=== PATIENT | male | born 1945 | race Caucasian/White ===

== ENCOUNTER 2016-11-23 17:39 | Emergency (ER) | payer MEDICARE ==
[2016-11-23 20:18] LABS: Basophils % (A) 0 %; CH 35.2; CHCM 34.7; Eosinophils # (A) 0.2 k/uL (0-0.7); Eosinophils % (A) 1 %; HDW 3.16; HGB 13.1 gm/dL (13.0-17.5); Luc # (Auto) 0.16; Luc % (Auto) 1; Lymphocytes # (A) 1.3 k/uL (1.0-4.8); Lymphocytes % (A) 9 %; MCH 35.3 pg (25.0-35.0); MCHC 34.6 g/dL (31.0-37.0); Macrocytosis Slight; Mean Platelet Volume 7.7; Monocytes # (A) 0.4 k/uL (0-1.0); Monocytes % (A) 3 %; Neutrophils % (A) 86 %; RBC 3.73 m/uL (4.30-5.90); RDW 14.9 % (11.5-15.5)
[2016-11-23 20:39] LABS: ALT 44 U/L (21-72); AST 57 U/L (17-59); Alkaline Phosphatase 133 U/L (38-126); Anion Gap 11 mmol/L; Blood Urea Nitrogen 26 mg/dL (9-20); Calcium 8.7 mg/dL (8.4-10.2); Carbon Dioxide 20 mmol/L (22-30); Chloride 110 mmol/L (98-107); Glucose 316 mg/dL (74-99); Non-African American GFR(MDRD) >60 (>60 ml/min/1.73 sqM); Potassium 3.8 mmol/L (3.5-5.1); Sodium 141 mmol/L (137-145); Total Bilirubin 3.7 mg/dL (0.2-1.3); Total Protein 7.5 g/dL (6.3-8.2)
[2016-11-23] MEDS ORDERED: ONDANSETRON 4 MG/2 ML VIAL IVP STA (21:06)
[2016-11-23] MEDS ORDERED: SODIUM CHLORIDE 0.9% 1,000 ML IV ONE (21:06)
[2016-11-23] MEDS ORDERED: RX INFO: IV CONTRAST WAS GIVEN 1 EACH MISC MISCELLANE PRN (21:06)
--- NOTE | 2016-11-23 22:33 | CT ---
EXAMINATION TYPE: CT ABDOMEN PELVIS W CON DATE OF EXAM: 11/23/2016 9:46 PM COMPARISON: June 16, 2013 HISTORY: Pt states of vomiting x2 days ago. CT DLP: 1752.3 mGycm Automated exposure control for dose reduction was used. TECHNIQUE: Helical acquisition of images was performed from the lung bases through the pelvis. CONTRAST: Performed without Oral Contrast and with IV Contrast, patient injected with 100 mL of Omnipaque 300. FINDINGS: LUNG BASES: No significant abnormality is appreciated. LIVER/GB: The liver is scalloped diffusely, and dominant varices are noted, but no focal liver lesion s can be seen. There is evidence of cholelithiasis occupying a small percentage of the gallbladder stephanie men. The biliary tree is otherwise unremarkable. PANCREAS: No significant abnormality is seen. SPLEEN: Evidence of mild splenomegaly, without focal findings. ADRENALS: No significant abnormality is seen. KIDNEYS: No significant abnormality is seen, although bilateral simple renal cysts are noted, greater in size on the left.. PERITONEAL CAVITY: There is a moderate-marked volume of peritoneal fluid throughout the abdomen and p baljinder, and within the lower omentum there is a reticulonodular pattern of increased density - a findi ng which can correlate with omental carcinomatosis. There is no pneumoperitoneum. ADENOPATHY: None visualized REPRODUCTIVE ORGANS: No significant abnormality is seen URINARY BLADDER: No significant abnormality is seen. PELVIC ADENOPATHY: None visualized. OSSEOUS STRUCTURES: No significant abnormality is seen. BOWEL: No significant abnormality is seen. IMPRESSION: 1. MODERATE-MARKED PERITONEAL FLUID THROUGHOUT THE ABDOMEN AND PELVIS. 2. SUSPICIOUS LOWER OMENTAL RETICULONODULAR PATTERN DISCUSSED ABOVE.
[2016-11-23 23:12] VITALS: PULSE 100; RESP 18
--- NOTE | 2016-11-24 00:05 | ED ---
General Adult HPI - General Chief complaint: Nausea/Vomiting/Diarrhea Stated complaint: POSS FOOD POISENING Source: patient Mode of arrival: wheelchair Limitations: no limitations - History of Present Illness Initial comments: 8-year-old male presented for evaluation of nausea vomiting since Sunday. He states him and his were out for dinner and since then he has had worsening nausea and vomiting. Symptoms are worsened with by mouth intake and he is only barely been able tolerate water and tea. There are no alleviating factors. He states there is been no associated abdominal pain, diarrhea, constipation, dysuria, chest pain, shortness of breath. He denies any sick contacts and further states that his has no similar symptoms. There are no previous abdominal surgeries. - Related Data Home Medications Medication Instructions Recorded Confirmed Carvedilol [Coreg] 12.5 mg PO HS 11/23/16 11/23/16 Cyanocobalamin (Vitamin B-12) 1,000 mcg PO DAILY 11/23/16 11/23/16 [Vitamin B-12] Ferrous Sulfate [Feosol] 325 mg PO DAILY 11/23/16 11/23/16 Saw [place] 500 mg PO DAILY 11/23/16 11/23/16 amLODIPine/VALSARTAN [Exforge 1 tab PO DAILY 11/23/16 11/23/16 10-320 mg Tablet] Previous Rx's Medication Instructions Recorded Ondansetron [Zofran ODT] 4 mg PO Q8HR #10 tab 11/24/16 Allergies Allergy/AdvReac Type Severity Reaction Status Date / Time No Known Allergies Allergy Unverified 11/23/16 19:22 Review of Systems ROS Statement: Those systems with pertinent positive or pertinent negative responses have been documented in the HPI. ROS Other: All systems not noted in ROS Statement are negative. Constitutional: Denies: fever, chills Eyes: Denies: eye pain, eye discharge, vision change ENT: Denies: ear pain, throat pain Respiratory: Denies: cough, dyspnea, wheezes, hemoptysis Cardiovascular: Denies: chest pain, palpitations Endocrine: Denies: fatigue, polydipsia, polyuria Gastrointestinal: Reports: nausea, vomiting. Denies: abdominal pain, diarrhea, constipation, hematemesis, melena, hematochezia Genitourinary: Denies: urgency, dysuria Musculoskeletal: Denies: back pain, arthralgia, myalgia Skin: Denies: rash, lesions, change in color Neurological: Denies: headache, weakness Psychiatric: Denies: anxiety, depression Hematological/Lymphatic: Denies: easy bleeding, easy bruising Past Medical History Past Medical History: GERD/Reflux, Hypertension History of Any Multi-Drug Resistant Organisms: None Reported Past Surgical History: No Surgical Hx Reported Past Psychological History: No Psychological Hx Reported Smoking Status: Never smoker Past Alcohol Use History: None Reported Past Drug Use History: None Reported General Exam Limitations: no limitations General appearance: alert, in no apparent distress Head exam: Present: atraumatic, normocephalic, normal inspection Eye exam: Present: normal appearance, PERRL, EOMI. Absent: scleral icterus, conjunctival injection, periorbital swelling ENT exam: Present: normal exam, mucous membranes moist Neck exam: Present: normal inspection. Absent: tenderness, meningismus, lymphadenopathy Respiratory exam: Present: normal lung sounds bilaterally. Absent: respiratory distress, wheezes, rales, rhonchi, stridor Cardiovascular Exam: Present: regular rate, normal rhythm, normal heart sounds. Absent: systolic murmur, diastolic murmur, rubs, gallop, clicks GI/Abdominal exam: Present: soft, normal bowel sounds. Absent: distended, tenderness, guarding, rebound, rigid Rectal exam: Present: deferred Extremities exam: Present: normal inspection, full ROM, normal capillary refill. Absent: tenderness, pedal edema, joint swelling, calf tenderness Back exam: Present: normal inspection Neurological exam: Present: alert, oriented X3, CN II-XII intact Psychiatric exam: Present: normal affect, normal mood Skin exam: Present: warm, dry, intact, normal color. Absent: rash Course Vital Signs 11/23/16 11/23/16 11/23/16 18:04 19:21 22:32 Temperature 100.1 F H 98.1 F 99.4 F Pulse Rate 91 93 89 Respiratory 20 16 14 Rate Blood Pressure 121/7 180/98 198/84 O2 Sat by Pulse 99 98 98 Oximetry 11/23/16 23:11 Temperature 98.9 F Pulse Rate 100 Respiratory 18 Rate Blood Pressure 176/79 O2 Sat by Pulse 97 Oximetry EKG Findings - EKG Comments: EKG Findings:: Sinus tachycardia with a ventricular rate of 11, JAVIER 148, QRS 88 , QT/QTC 356/461. Medical Decision Making - Medical Decision Making 71-year-old male presented for evaluation of nausea and vomiting since Sunday night. His concern was that this was either due to a contaminated food or due to a gastroenteritis. On physical examination he has a large abdomen that he says is no bigger than baseline. Abdomen is soft and nontender without peritoneal signs of guarding, rigidity, rebound. Lungs are clear to auscultation bilaterally and chest exam is nonacute.Labs are significant for leukocytosis, hyperglycemia, lactic acidosis of 3.5, and transaminitis.CT abdomen and pelvis shows moderate volume of peritoneal fluid throughout the abdomen and pelvis and within the lower omentum there is a reticulonodular pattern of increased density which may correlate with omental carcinomatosis. The patient was reevaluated and continued to have improvement in his symptoms with decreased nausea vomiting and he tolerated a by mouth challenge. He was informed of these results and all questions were answered to satisfaction. He was offered admission to this facility for further treatment and evaluation as stated he would rather be discharged home to follow up as an outpatient. He stated that he would follow-up with his primary care physician either tomorrow or Sunday but return to this facility if his symptoms should worsen or persist. He stated he would also get a Hemoccult referral from his primary care physician. - Lab Data Result diagrams: 11/23/16 20:09 11/23/16 20:09 Lab Results 11/23/16 11/23/16 11/23/16 Range/Units 20:09 20:09 20:09 WBC 15.0 H (3.8-10.6) k/uL RBC 3.73 L (4.30-5.90) m/uL Hgb 13.1 (13.0-17.5) gm/dL Hct 38.0 L (39.0-53.0) % MCV 102.0 H (80.0-100.0) fL MCH 35.3 H (25.0-35.0) pg MCHC 34.6 (31.0-37.0) g/dL RDW 14.9 (11.5-15.5) % Plt Count 123 L (150-450) k/uL Neutrophils % 86 % Lymphocytes % 9 % Monocytes % 3 % Eosinophils % 1 % Basophils % 0 % Neutrophils # 13.0 H (1.3-7.7) k/uL Lymphocytes # 1.3 (1.0-4.8) k/uL Monocytes # 0.4 (0-1.0) k/uL Eosinophils # 0.2 (0-0.7) k/uL Basophils # 0.0 (0-0.2) k/uL Macrocytosis Slight Sodium 141 (137-145) mmol/L Potassium 3.8 (3.5-5.1) mmol/L Chloride 110 H (98-107) mmol/L Carbon Dioxide 20 L (22-30) mmol/L Anion Gap 11 mmol/L BUN 26 H (9-20) mg/dL Creatinine 0.70 (0.66-1.25) mg/dL Est GFR (MDRD) Af Amer >60 (>60 ml/min/1.73 sqM) Est GFR (MDRD) Non-Af >60 (>60 ml/min/1.73 sqM) Glucose 316 H (74-99) mg/dL Plasma Lactic Acid Brad 3.5 H* (0.7-2.0) mmol/L Calcium 8.7 (8.4-10.2) mg/dL Total Bilirubin 3.7 H (0.2-1.3) mg/dL AST 57 (17-59) U/L ALT 44 (21-72) U/L Alkaline Phosphatase 133 H (38-126) U/L Troponin I (0.000-0.034) ng/mL Total Protein 7.5 (6.3-8.2) g/dL Albumin 3.3 L (3.5-5.0) g/dL Lipase 76 (23-300) U/L 11/23/16 11/23/16 Range/Units 23:02 23:02 WBC (3.8-10.6) k/uL RBC (4.30-5.90) m/uL Hgb (13.0-17.5) gm/dL Hct (39.0-53.0) % MCV (80.0-100.0) fL MCH (25.0-35.0) pg MCHC (31.0-37.0) g/dL RDW (11.5-15.5) % Plt Count (150-450) k/uL Neutrophils % % Lymphocytes % % Monocytes % % Eosinophils % % Basophils % % Neutrophils # (1.3-7.7) k/uL Lymphocytes # (1.0-4.8) k/uL Monocytes # (0-1.0) k/uL Eosinophils # (0-0.7) k/uL Basophils # (0-0.2) k/uL Macrocytosis Sodium (137-145) mmol/L Potassium (3.5-5.1) mmol/L Chloride (98-107) mmol/L Carbon Dioxide (22-30) mmol/L Anion Gap mmol/L BUN (9-20) mg/dL Creatinine (0.66-1.25) mg/dL Est GFR (MDRD) Af Amer (>60 ml/min/1.73 sqM) Est GFR (MDRD) Non-Af (>60 ml/min/1.73 sqM) Glucose (74-99) mg/dL Plasma Lactic Acid Brad 2.2 H* (0.7-2.0) mmol/L Calcium (8.4-10.2) mg/dL Total Bilirubin (0.2-1.3) mg/dL AST (17-59) U/L ALT (21-72) U/L Alkaline Phosphatase (38-126) U/L Troponin I <0.012 (0.000-0.034) ng/mL Total Protein (6.3-8.2) g/dL Albumin (3.5-5.0) g/dL Lipase (23-300) U/L Disposition Clinical Impression: Nausea and vomiting, Omental mass, Leukocytosis Disposition: HOME SELF-CARE Condition: Stable Instructions: Acute Nausea and Vomiting (ED) Additional Instructions: Please use medication as discussed. Please follow up with family doctor if symptoms have not improved over the next two days. Please return to the emergency room if your symptoms increase or worsen or for any other concerns. Prescriptions: Ondansetron [Zofran ODT] 4 mg PO Q8HR #10 tab Referrals: Chrissie Christianson MD [Primary Care Provider] - 1-2 days Time of Disposition: 00:05
[2016-11-24 00:22] VITALS: BP 155/67; TEMP 100.5
[2016-11-24] MEDS ORDERED: ACETAMINOPHEN TAB 325 MG TAB PO STA (00:24)
== END 2016-11-24 00:29 | disposition home or self-care (01) ==
LOC: EC 17:39
DX: R11.2 Nausea with vomiting, unspecified (principal); K63.89 Other specified diseases of intestine; D72.829 Elevated white blood cell count, unspecified; I10 Essential (primary) hypertension; Z79.899 Other long term (current) drug therapy
CPT/HCPCS: 99284; 96374; 96361; 36415; 93005; 80053; 83605; 83690; 84484; 85025; 74177; J2405; Q9967

== ENCOUNTER → 2016-12-21 | Outpatient (CLI) | payer MEDICARE ==
--- NOTE | 2016-12-21 08:12 | US ---
EXAMINATION TYPE: US abdomen complete DATE OF EXAM: 12/21/2016 COMPARISON: CT CLINICAL HISTORY: R10.84 Generalized abdominal pain,R94.5 High LFT. Distended abd, pt had food poiso aimee last month came to ER and was dehydrated abd wall thick and edematous 2.5 cm, ascites all 4 quadrants ruq:1.6cm luq:5.7 cm rlq:6.4 cm llq:7.5 cm EXAM MEASUREMENTS: Liver Length: 16.8 cm Gallbladder Wall: 0.6 cm CBD: 0.6 cm Spleen: 16.3 cm Right Kidney: 10.8 x 5.3 x 5.0 cm Left Kidney: 12.7 x 5.2 x 4.9 cm Pancreas: Obscured by bowel gas Liver: ascites, heterogenous, Gallbladder: thick walled Evidence for sonographic Jauregui's sign: No CBD: wnl Spleen: enlarged Right Kidney: No hydronephrosis or masses seen Left Kidney: cysts 6.4 x 8.2 x 4.6 cm, 2.1 x 1.6 x 1.7 cm Upper IVC: Obscured by overlying bowel gas Abd Aorta: Obscured by overlying bowel gas IMPRESSION: 1. Liver is diffusely heterogeneous which can be seen with fatty infiltration, hepatitis or diffuse h epatocellular disease. 2. Pancreas is limited 3. Small amount of ascites 4. Splenomegaly. 5. Simple appearing left renal cysts. 6. gallbladder wall is thickened measuring 6 mm. This can occasionally be seen with hepatocellular di sease and ascites. No gallstones. Cholecystitis not excluded. Correlate clinically.
== END | disposition home or self-care (01) ==
LOC: RADUSWWP 07:00
PROVIDERS: ATTEND Internal Medicine
DX: R18.8 Other ascites (principal); N28.1 Cyst of kidney, acquired; R93.2 Abnormal findings on diagnostic imaging of liver and biliary tract
CPT/HCPCS: 76700

== ENCOUNTER 2017-01-04 22:44 | Inpatient (IN) | payer MEDICARE ==
[2017-01-04] MEDS ORDERED: ONDANSETRON 4 MG/2 ML VIAL IVP STA (23:15)
[2017-01-04] MEDS ORDERED: SODIUM CHLORIDE 0.9% 1,000 ML IV STA ×2 (23:15)
[2017-01-04] MEDS ORDERED: PANTOPRAZOLE 40 MG/10 ML VIAL IVP STA (23:15)
[2017-01-04 23:29] LABS: Basophils % (A) 1 %; Eosinophils # (A) 0.1 k/uL (0-0.7); Eosinophils % (A) 2 %; HCT 31.3 % (39.0-53.0); HGB 10.3 gm/dL (13.0-17.5); Luc # (Auto) 0.15; Luc % (Auto) 3; Lymphocytes # (A) 1.4 k/uL (1.0-4.8); Lymphocytes % (A) 23 %; MCH 33.2 pg (25.0-35.0); MCHC 32.9 g/dL (31.0-37.0); MCV 100.7 fL (80.0-100.0); Macrocytosis Slight; Mean Platelet Volume 7.5; Monocytes # (A) 0.4 k/uL (0-1.0); Monocytes % (A) 6 %; Neutrophils % (A) 66 %; Poikilocytosis Slight; RBC 3.11 m/uL (4.30-5.90); RDW 14.7 % (11.5-15.5); WBC 6.1 k/uL (3.8-10.6); WBC (Perox) 6.07
[2017-01-04 23:40] LABS: INR 1.3 (<1.1); Partial Thromboplastin Time 24.5 sec (22.0-30.0); Prothrombin Time 12.5 sec (9.0-12.0)
[2017-01-04 23:45] LABS: ALT 31 U/L (21-72); AST 37 U/L (17-59); Alkaline Phosphatase 99 U/L (38-126); Anion Gap 7 mmol/L; Blood Urea Nitrogen 20 mg/dL (9-20); Calcium 8.4 mg/dL (8.4-10.2); Carbon Dioxide 24 mmol/L (22-30); Chloride 109 mmol/L (98-107); Glucose 116 mg/dL (74-99); Magnesium 1.9 mg/dL (1.6-2.3); Non-African American GFR(MDRD) >60 (>60 ml/min/1.73 sqM); Potassium 4.7 mmol/L (3.5-5.1); Sodium 140 mmol/L (137-145); Total Bilirubin 1.4 mg/dL (0.2-1.3); Total Protein 6.6 g/dL (6.3-8.2)
--- NOTE | 2017-01-04 23:55 | ED ---
General Adult HPI - General Chief complaint: GI Bleed Stated complaint: Vomiting Blood Time Seen by Provider: 01/04/17 23:14 Source: patient, RN notes reviewed, old records reviewed Mode of arrival: ambulatory Limitations: no limitations - History of Present Illness Initial comments: This is a 71-year-old male here for evaluation of vomiting blood. Patient has history of upper GI bleed, not on blood thinners. Patient states he vomited 2- 3 [address] blood walk home. Patient denies feeling lightheaded dizzy or weak. No blood in his stool. Patient has prior GI evaluation including upper and lower endoscopies which showed diverticulosis, likely ulcer. Patient denies any pain - Related Data Home Medications Medication Instructions Recorded Confirmed Carvedilol [Coreg] 12.5 mg PO HS 11/23/16 01/04/17 Cyanocobalamin (Vitamin B-12) 1,000 mcg PO DAILY 11/23/16 01/04/17 [Vitamin B-12] Ferrous Sulfate [Feosol] 325 mg PO Q48H 11/23/16 01/04/17 Saw [place] 500 mg PO DAILY 11/23/16 01/04/17 Amlodipine Besylate/Valsartan 1 tab PO DAILY 01/04/17 01/04/17 [Exforge 5-320 mg Tablet] Cephalexin [Keflex] 500 mg PO TID 01/04/17 01/04/17 Furosemide [Lasix] 20 mg PO DAILY 01/04/17 01/04/17 Glimepiride [Amaryl] 1 mg PO BID 01/04/17 01/04/17 Promethazine HCl/Codeine 5 ml PO Q6HR PRN 01/04/17 01/04/17 [Prometh-Codein 6.25-10 mg/5 ml] Allergies Allergy/AdvReac Type Severity Reaction Status Date / Time No Known Allergies Allergy Verified 01/04/17 23:38 Review of Systems ROS Statement: Those systems with pertinent positive or pertinent negative responses have been documented in the HPI. ROS Other: All systems not noted in ROS Statement are negative. Past Medical History Past Medical History: GERD/Reflux, Hypertension History of Any Multi-Drug Resistant Organisms: None Reported Past Surgical History: No Surgical Hx Reported Past Psychological History: No Psychological Hx Reported Smoking Status: Never smoker Past Alcohol Use History: None Reported Past Drug Use History: None Reported General Exam Limitations: no limitations General appearance: alert, in no apparent distress Head exam: Present: atraumatic, normocephalic, normal inspection Eye exam: Present: normal appearance, PERRL, EOMI. Absent: scleral icterus, conjunctival injection, periorbital swelling ENT exam: Present: normal exam, mucous membranes moist Neck exam: Present: normal inspection. Absent: tenderness, meningismus, lymphadenopathy Respiratory exam: Present: normal lung sounds bilaterally. Absent: respiratory distress, wheezes, rales, rhonchi, stridor Cardiovascular Exam: Present: regular rate, normal rhythm, normal heart sounds. Absent: systolic murmur, diastolic murmur, rubs, gallop, clicks GI/Abdominal exam: Present: soft, normal bowel sounds. Absent: distended, tenderness, guarding, rebound, rigid Extremities exam: Present: normal inspection, full ROM, normal capillary refill. Absent: tenderness, pedal edema, joint swelling, calf tenderness Back exam: Present: normal inspection Neurological exam: Present: alert, oriented X3, CN II-XII intact Psychiatric exam: Present: normal affect, normal mood Skin exam: Present: warm, dry, intact, normal color. Absent: rash Course Vital Signs 01/04/17 22:55 Temperature 97.8 F Pulse Rate 102 H Respiratory 20 Rate Blood Pressure 176/78 O2 Sat by Pulse 96 Oximetry - Reevaluation(s) Reevaluation #1: 01/05/17 00:01 Patient is without lightheaded or dizziness, no active vomiting Medical Decision Making - Medical Decision Making 71 male to the ER with history of GI bleed likely from also, not on blood thinners coming in with vomiting blood. Patient will be admitted for monitoring of hemoglobin, moderate nuclear and Arias status, GI evaluation. - Lab Data Result diagrams: 01/04/17 23:20 01/04/17 23:20 Lab Results 01/04/17 01/04/17 01/04/17 Range/Units 23:20 23:20 23:20 WBC 6.1 (3.8-10.6) k/uL RBC 3.11 L (4.30-5.90) m/uL Hgb 10.3 L (13.0-17.5) gm/dL Hct 31.3 L (39.0-53.0) % MCV 100.7 H (80.0-100.0) fL MCH 33.2 (25.0-35.0) pg MCHC 32.9 (31.0-37.0) g/dL RDW 14.7 (11.5-15.5) % Plt Count 206 (150-450) k/uL Neutrophils % 66 % Lymphocytes % 23 % Monocytes % 6 % Eosinophils % 2 % Basophils % 1 % Neutrophils # 4.0 (1.3-7.7) k/uL Lymphocytes # 1.4 (1.0-4.8) k/uL Monocytes # 0.4 (0-1.0) k/uL Eosinophils # 0.1 (0-0.7) k/uL Basophils # 0.0 (0-0.2) k/uL Poikilocytosis Slight Macrocytosis Slight PT (9.0-12.0) sec INR (<1.1) APTT (22.0-30.0) sec Sodium 140 (137-145) mmol/L Potassium 4.7 (3.5-5.1) mmol/L Chloride 109 H (98-107) mmol/L Carbon Dioxide 24 (22-30) mmol/L Anion Gap 7 mmol/L BUN 20 (9-20) mg/dL Creatinine 0.70 (0.66-1.25) mg/dL Est GFR (MDRD) Af Amer >60 (>60 ml/min/1.73 sqM) Est GFR (MDRD) Non-Af >60 (>60 ml/min/1.73 sqM) Glucose 116 H (74-99) mg/dL Calcium 8.4 (8.4-10.2) mg/dL Magnesium 1.9 (1.6-2.3) mg/dL Total Bilirubin 1.4 H (0.2-1.3) mg/dL AST 37 (17-59) U/L ALT 31 (21-72) U/L Alkaline Phosphatase 99 (38-126) U/L Total Creatine Kinase 42 L (55-170) U/L Total Protein 6.6 (6.3-8.2) g/dL Albumin 2.6 L (3.5-5.0) g/dL Lipase 83 (23-300) U/L 01/04/17 Range/Units 23:20 WBC (3.8-10.6) k/uL RBC (4.30-5.90) m/uL Hgb (13.0-17.5) gm/dL Hct (39.0-53.0) % MCV (80.0-100.0) fL MCH (25.0-35.0) pg MCHC (31.0-37.0) g/dL RDW (11.5-15.5) % Plt Count (150-450) k/uL Neutrophils % % Lymphocytes % % Monocytes % % Eosinophils % % Basophils % % Neutrophils # (1.3-7.7) k/uL Lymphocytes # (1.0-4.8) k/uL Monocytes # (0-1.0) k/uL Eosinophils # (0-0.7) k/uL Basophils # (0-0.2) k/uL Poikilocytosis Macrocytosis PT 12.5 H (9.0-12.0) sec INR 1.3 (<1.1) APTT 24.5 (22.0-30.0) sec Sodium (137-145) mmol/L Potassium (3.5-5.1) mmol/L Chloride (98-107) mmol/L Carbon Dioxide (22-30) mmol/L Anion Gap mmol/L BUN (9-20) mg/dL Creatinine (0.66-1.25) mg/dL Est GFR (MDRD) Af Amer (>60 ml/min/1.73 sqM) Est GFR (MDRD) Non-Af (>60 ml/min/1.73 sqM) Glucose (74-99) mg/dL Calcium (8.4-10.2) mg/dL Magnesium (1.6-2.3) mg/dL Total Bilirubin (0.2-1.3) mg/dL AST (17-59) U/L ALT (21-72) U/L Alkaline Phosphatase (38-126) U/L Total Creatine Kinase (55-170) U/L Total Protein (6.3-8.2) g/dL Albumin (3.5-5.0) g/dL Lipase (23-300) U/L Disposition Clinical Impression: Gastrointestinal hemorrhage, Gastritis, Upper gastrointestinal hemorrhage Disposition: ADMITTED IP TO THIS HOSP Condition: Good Instructions: Gastrointestinal Bleeding (ED) Referrals: Chrissie Christianson MD [Primary Care Provider] - 1-2 days
[2017-01-04 23:56] LABS: Creatine Kinase 42 U/L (55-170)
[2017-01-05 00:09] LABS: Creatine Kinase MB 0.9 ng/mL (0.0-2.4); Troponin I <0.012 ng/mL (0.000-0.034)
[2017-01-05 01:13] VITALS: BMI 33.2
[2017-01-05] MEDS: ONDANSETRON 4 MG/2 ML VIAL IVP PRN ×2 (07:37→18:14)
[2017-01-05 08:10] LABS: Basophils % (A) 1 %; CH 32.9; CHCM 32.7; Eosinophils # (A) 0.1 k/uL (0-0.7); Eosinophils % (A) 2 %; HCT 30.1 % (39.0-53.0); HDW 3.59; HGB 10.4 gm/dL (13.0-17.5); Hypochromasia Slight; Luc # (Auto) 0.15; Luc % (Auto) 2; Lymphocytes # (A) 1.3 k/uL (1.0-4.8); Lymphocytes % (A) 20 %; MCHC 34.6 g/dL (31.0-37.0); MCV 101.2 fL (80.0-100.0); Macrocytosis Slight; Mean Platelet Volume 7.2; Monocytes # (A) 0.4 k/uL (0-1.0); Monocytes % (A) 6 %; Neutrophils # (A) 4.2 k/uL (1.3-7.7); Neutrophils % (A) 69 %; Poikilocytosis Slight; RBC 2.97 m/uL (4.30-5.90); RDW 14.5 % (11.5-15.5); WBC 6.1 k/uL (3.8-10.6); WBC (Perox) 6.34
[2017-01-05 08:23] LABS: ALT 27 U/L (21-72); AST 37 U/L (17-59); Alkaline Phosphatase 94 U/L (38-126); Anion Gap 8 mmol/L; Blood Urea Nitrogen 23 mg/dL (9-20); Calcium 8.1 mg/dL (8.4-10.2); Carbon Dioxide 22 mmol/L (22-30); Chloride 111 mmol/L (98-107); Glucose 117 mg/dL (74-99); Non-African American GFR(MDRD) >60 (>60 ml/min/1.73 sqM); Potassium 4.4 mmol/L (3.5-5.1); Sodium 141 mmol/L (137-145); Total Bilirubin 1.6 mg/dL (0.2-1.3); Total Protein 6.8 g/dL (6.3-8.2)
[2017-01-05] MEDS: PANTOPRAZOLE 40 MG/10 ML VIAL IVP SCH ×2 (08:43→20:36)
[2017-01-05] MEDS ORDERED: PROMETHAZ-COD 6.25-10 MG/5 ML 5 ML CUP PO PRN (10:28)
[2017-01-05] MEDS ORDERED: SODIUM CHLORIDE 0.45% 1,000 ML IV SCH (10:30)
[2017-01-05] MEDS: VALSARTAN 160 MG TAB PO SCH (10:53)
[2017-01-05] MEDS: amLODIPine 5 MG TAB PO SCH (10:53)
[2017-01-05] MEDS: FUROSEMIDE 10 MG/ML 4 ML VIAL IV SCH ×2 (10:53→20:36)
[2017-01-05] MEDS ORDERED: LACTATED RINGERS 1,000 ML IV ONE (11:40)
[2017-01-05] MEDS ORDERED: LIDOCAINE 1% INJ 10MG/ML (20 ML MDV) ONE (11:40)
[2017-01-05] MEDS ORDERED: PROPOFOL 10 MG/ML 20 ML VIAL IV ONE (11:40)
--- NOTE | 2017-01-05 11:51 | P.CONS ---
History of Present Illness - Reason for Consult Consult date: 01/05/17 - History of Present Illness Patient is a 71-year-old pleasant white male admitted to the hospital with 1 episode of hematemesis. He was not sure whether he spit up the blood or whether he threw up but it was small amount of blood. He had some epigastric discomfort also. Since being in the hospital she did not have any further episodes of bleeding. He denies any melena. Denies any recent NSAID use. Never had similar symptoms in the past. No prior history of peptic ulcer disease. He came to the emergency room 6 weeks ago with acute onset of abdominal pain associated with nausea vomiting and was diagnosed with food poisoning and was discharged home. CT of the abdomen done at that time that showed evidence of gastritis and hence patient is scheduled to see me in the office next week for evaluation of chronic liver disease. He denies any alcohol use. No prior history of jaundice or hepatitis in the past. Review of Systems REVIEW OF SYSTEMS: CARDIOPULMONARY: No chest pain or shortness of breath. GENITOURINARY: No dysuria or hematuria. MUSCULOSKELETAL: Unremarkable. SKIN: Unremarkable. ENDOCRINE: Unremarkable. PSYCHIATRIC: Unremarkable. NEUROLOGY: Unremarkable. ENT: Vision unremarkable. CONSTITUTIONAL: No recent weight loss. No fever, chills, night sweats. Past Medical History Past Medical History: GERD/Reflux, Hypertension Additional Past Medical History / Comment(s): Renal cysts History of Any Multi-Drug Resistant Organisms: None Reported Past Surgical History: No Surgical Hx Reported Additional Past Surgical History / Comment(s): cataracts Past Psychological History: No Psychological Hx Reported Smoking Status: Never smoker Past Alcohol Use History: None Reported Past Drug Use History: None Reported - Past Family History Mother Family Medical History: No Reported History Additional Family Medical History / Comment(s): Pt adopted, but knows mother. Healthy at 95y/o Father Family Medical History: Liver Disease, Myocardial Infarction ([place]) Additional Family Medical History / Comment(s): , heavy drinker Medications and Allergies Home Medications Medication Instructions Recorded Confirmed Type Carvedilol [Coreg] 12.5 mg PO HS 11/23/16 01/04/17 History Cyanocobalamin (Vitamin B-12) 1,000 mcg PO DAILY 11/23/16 01/04/17 History [Vitamin B-12] Ferrous Sulfate [Feosol] 325 mg PO Q48H 11/23/16 01/04/17 History Saw [place] 500 mg PO DAILY 11/23/16 01/04/17 History Amlodipine Besylate/Valsartan 1 tab PO DAILY 01/04/17 01/04/17 History [Exforge 5-320 mg Tablet] Cephalexin [Keflex] 500 mg PO TID 01/04/17 01/04/17 History Furosemide [Lasix] 20 mg PO DAILY 01/04/17 01/04/17 History Glimepiride [Amaryl] 1 mg PO BID 01/04/17 01/04/17 History Promethazine HCl/Codeine 5 ml PO Q6HR PRN 01/04/17 01/04/17 History [Prometh-Codein 6.25-10 mg/5 ml] Allergies Allergy/AdvReac Type Severity Reaction Status Date / Time No Known Allergies Allergy Verified 01/04/17 23:38 Physical Exam Vitals: Vital Signs Temp Pulse Pulse Resp BP BP Pulse Ox 01/05/17 07:00 98.4 F 105 H 20 178/81 95 01/05/17 00:50 98.4 F 89 17 178/80 96 01/05/17 00:16 98.1 F 92 18 176/82 95 01/04/17 22:55 97.8 F 102 H 20 176/78 96 Intake and Output 01/04/17 01/05/17 01/05/17 22:59 06:59 14:59 Intake Total 400 Balance 400 Intake: Intake, IV Titration 400 Amount Sodium Chloride 0.9% 1, 400 000 ml @ 100 mls/hr IV . Q10H STA Rx#:[id number] Oral 0 Other: Voiding Method Toilet Weight 111.13 kg 111.13 kg On physical examination, patient appears comfortable in no apparent distress. Vital signs are stable. HEENT: Unremarkable. Conjunctivae pink. Sclerae anicteric. Oral cavity no lesions. NECK: No JVD or lymph node enlargement. CHEST: Clear to auscultation. HEART: Regular rate and rhythm. ABDOMEN: Soft. Bowel sounds are positive. No organomegaly. Very distended and some ascites noted. EXTREMITIES: No pedal edema. SKIN: No rashes. NEUROLOGIC: Alert and oriented x3. No focal deficits. Results CBC & Chem 7: 01/05/17 07:50 01/05/17 07:50 Labs: Abnormal Lab Results - Last 24 Hours (Table) 01/04/17 01/04/17 01/04/17 Range/Units 23:20 23:20 23:20 RBC 3.11 L (4.30-5.90) m/uL Hgb 10.3 L (13.0-17.5) gm/dL Hct 31.3 L (39.0-53.0) % MCV 100.7 H (80.0-100.0) fL PT (9.0-12.0) sec Chloride 109 H (98-107) mmol/L BUN (9-20) mg/dL Glucose 116 H (74-99) mg/dL Calcium (8.4-10.2) mg/dL Total Bilirubin 1.4 H (0.2-1.3) mg/dL Total Creatine Kinase 42 L (55-170) U/L Albumin 2.6 L (3.5-5.0) g/dL 01/04/17 01/05/17 01/05/17 Range/Units 23:20 07:50 07:50 RBC 2.97 L (4.30-5.90) m/uL Hgb 10.4 L (13.0-17.5) gm/dL Hct 30.1 L (39.0-53.0) % MCV 101.2 H (80.0-100.0) fL PT 12.5 H (9.0-12.0) sec Chloride 111 H (98-107) mmol/L BUN 23 H (9-20) mg/dL Glucose 117 H (74-99) mg/dL Calcium 8.1 L (8.4-10.2) mg/dL Total Bilirubin 1.6 H (0.2-1.3) mg/dL Total Creatine Kinase (55-170) U/L Albumin 2.6 L (3.5-5.0) g/dL Assessment and Plan (1) Upper gastrointestinal hemorrhage Narrative/Plan: Patient had an episode of hematemesis yesterday and initial hemoglobin was 12.4 g/dL. This morning it dropped to 10.4 g/dL. He did not have any further episodes of bleeding since being in the hospital. No recent NSAID use or prior history of peptic ulcer disease. Clinically he also has abdominal distention and possibility of hepatitis cannot be excluded at this time. Recommendations: 1. Will proceed with an upper endoscopy today. 2. Continue with IV proton pump inhibitors 3. In regards to abdominal distention with scheduled for an ultrasound the abdomen to evaluate further 4. Further recommendations will follow based an upper endoscopy results. Status: Acute
--- NOTE | 2017-01-05 11:53 | P.PCN ---
Date of Procedure: 01/05/17 Preoperative Diagnosis: Postoperative Diagnosis: Procedure(s) Performed: BRIEF HISTORY: Patient is a 71-year-old, pleasant, white male, scheduled for an upper endoscopy as part of evaluation of acute upper GI bleed. PROCEDURE PERFORMED: Esophagogastroduodenoscopy. PREOPERATIVE DIAGNOSIS: Acute upper GI bleed. IV sedation per anesthesia. PROCEDURE: After informed consent was obtained, the patient was brought into the endoscopy unit. IV sedation was administered by Anesthesia under continuous monitoring. Initially the Olympus GIF-140 video endoscope was inserted into the mouth. Esophagus intubated without any difficulty. It was gradually advanced into the stomach and duodenum and carefully examined. The bulb and the second part of the duodenum appeared normal. The scope at this time was withdrawn to the stomach, adequately insufflated with air, and upon careful examination, mucosa of the antrum, body, cardia and the fundus had diffuse gastritis consistent with portal hypertensive gastropathy. No active bleeding noted.. The scope was then withdrawn into the esophagus. The GE junction was located at 39 cm from the incisors. Small hiatal hernia noted. There were grade 2/grade 3 mid/distal esophageal varices identified with no evidence of active bleeding or stigmata of recent bleed. There were no erosions or ulcerations seen and the patient tolerated the procedure well. IMPRESSION: 1. Grade 2/3 mid/distal esophageal varices with no active bleeding. 2. Severe portal hypertensive gastropathy. 3. Mild diffuse gastritis RECOMMENDATIONS: The findings of this examination were discussed with the patient as well as his family. At this time he will be investigated for chronic liver disease. Patient has an appointment next week to see me in the office for further evaluation.. Implants: Indications for Procedure: Operative Findings: Description of Procedure:
[2017-01-05 12:25] LABS: Iron 80 ug/dL (49-181)
[2017-01-05 12:36] LABS: % Iron Saturation 34.3 % (20-50); Total Iron Binding Capacity 233 ug/dL (261-462)
[2017-01-05 13:44] LABS: Hepatitis B Surface Ag Index 0.05
[2017-01-05 14:02] LABS: Hepatitis C Virus IgG Ab Negative (Negative); Hepatitis C Virus IgG Index 0.11
--- NOTE | 2017-01-05 14:04 | US ---
EXAMINATION TYPE: US abdomen limited DATE OF EXAM: 01/05/2017 COMPARISON: Prior abdomen 12/21/2016 CLINICAL HISTORY: abd distension r/o ascites. Patient on Lasix. Fluid seen in all four quadrants. Largest fluid pocket seen in RLQ. Exam is limited. IMPRESSION: Large amount of ascites is present. Limited exam.
[2017-01-05] MEDS ORDERED: CARVEDILOL 12.5 MG TAB PO SCH (21:00)
[2017-01-05 23:10] VITALS: PULSE 75; RESP 16
[2017-01-06] MEDS: PANTOPRAZOLE 40 MG/10 ML VIAL IVP SCH (08:20)
[2017-01-06 08:21] LABS: Glucose,Whole Blood 109 mg/dL (75-99)
[2017-01-06] MEDS: VALSARTAN 160 MG TAB PO SCH (08:22)
[2017-01-06] MEDS: amLODIPine 5 MG TAB PO SCH (08:23)
[2017-01-06] MEDS: FUROSEMIDE 10 MG/ML 4 ML VIAL IV SCH (08:23)
[2017-01-06 09:36] VITALS: BP 163/78; TEMP 97.9
--- NOTE | 2017-01-06 11:07 | P.HPIM ---
History of Present Illness H&P Date: 01/06/16 Patient is a 71-year-old pleasant white male admitted to the hospital with episode of hematemesis. He was not sure whether he spit up the blood or whether he threw up but it was small amount of blood. He denied any significant epigastric discomfort but does have some pain in the right side of the abdomen he believes it secondary to muscle strain. Since being in the hospital she did not have any further episodes of bleeding. He denies any melena. Denies any recent NSAID use. Never had similar symptoms in the past. No prior history of peptic ulcer disease. Patient's abdomen is distended and the patient was given Lasix by the primary care physician Dr. Christianson. Patient's INR is elevated patient does have signs and symptoms consistent with cirrhosis and possible reason for his upper GI bleed is Variscal in nature. Patient patient does have family history of cirrhosis and brother and his father but both of them are alcoholics and patient denied any significant family history of cirrhosis in family who is not alcoholic. Patient is not an alcoholic. Agent had a CAT scan of the abdomen recently which do which did show ascites with hepatocellular disease. Patient's ultrasound here was reviewed as well. He came to the emergency room 6 weeks ago with acute onset of abdominal pain associated with nausea vomiting and was diagnosed with food poisoning and was discharged home. CT of the abdomen done at that time that showed evidence of gastritis and hence patient is scheduled to see me in the office next week for evaluation of chronic liver disease. He denies any alcohol use. No prior history of jaundice or hepatitis in the past. Review of Systems REVIEW OF SYSTEMS: CONSTITUTIONAL: No fever, no malaise, no fatigue. HEENT: No recent visual problems or hearing problems. Denied any sore throat. CARDIOVASCULAR: No chest pain, orthopnea, PND, no palpitations, no syncope. PULMONARY: No shortness of breath, no cough, no hemoptysis. GASTROINTESTINAL: As mentioned in the history. NEUROLOGICAL: No headaches, no weakness, no numbness. HEMATOLOGICAL: Denies any bleeding or petechiae. GENITOURINARY: Denies any burning micturition, frequency, or urgency. MUSCULOSKELETAL/RHEUMATOLOGICAL: Denies any joint pain, swelling, or any muscle pain. ENDOCRINE: Denies any polyuria or polydipsia. The rest of the 14-point review of systems is negative. Past Medical History Past Medical History: GERD/Reflux, Hypertension Additional Past Medical History / Comment(s): Renal cysts History of Any Multi-Drug Resistant Organisms: None Reported Past Surgical History: No Surgical Hx Reported Additional Past Surgical History / Comment(s): cataracts Past Psychological History: No Psychological Hx Reported Smoking Status: Never smoker Past Alcohol Use History: None Reported Past Drug Use History: None Reported - Past Family History Mother Family Medical History: No Reported History Additional Family Medical History / Comment(s): Pt adopted, but knows mother. Healthy at 95y/o Father Family Medical History: Liver Disease, Myocardial Infarction ([place]) Additional Family Medical History / Comment(s): , heavy drinker Medications and Allergies Home Medications Medication Instructions Recorded Confirmed Type Carvedilol [Coreg] 12.5 mg PO HS 11/23/16 01/04/17 History Cyanocobalamin (Vitamin B-12) 1,000 mcg PO DAILY 11/23/16 01/04/17 History [Vitamin B-12] Ferrous Sulfate [Feosol] 325 mg PO Q48H 11/23/16 01/04/17 History Amlodipine Besylate/Valsartan 1 tab PO DAILY 01/04/17 01/04/17 History [Exforge 5-320 mg Tablet] Glimepiride [Amaryl] 1 mg PO BID 01/04/17 01/04/17 History Promethazine HCl/Codeine 5 ml PO Q6HR PRN 01/04/17 01/04/17 History [Prometh-Codein 6.25-10 mg/5 ml] Allergies Allergy/AdvReac Type Severity Reaction Status Date / Time No Known Allergies Allergy Verified 01/04/17 23:38 Physical Exam Vitals: Vital Signs Temp Pulse Resp BP Pulse Ox 01/06/17 08:00 75 16 01/06/17 07:00 97.9 F 92 22 163/78 96 01/05/17 23:00 98.1 F 75 16 132/61 95 01/05/17 20:31 90 141/64 Intake and Output 01/05/17 01/06/17 01/06/17 22:59 06:59 14:59 Intake Total 540 Balance 540 Intake: Oral 540 Other: Voiding Method Toilet Toilet Toilet # Voids 1 2 2 PHYSICAL EXAMINATION: GENERAL: The patient is alert and oriented x3, not in any acute distress. Well developed, well nourished. HEENT: Pupils are round and equally reacting to light. EOMI. No scleral icterus. No conjunctival pallor. Normocephalic, atraumatic. No pharyngeal erythema. No thyromegaly. CARDIOVASCULAR: S1 and S2 present. No murmurs, rubs, or gallops. PULMONARY: Chest is clear to auscultation, no wheezing or crackles. ABDOMEN: Soft, distended with fluid thrill and medical hernia. Patient does have hemorrhoids as well. MUSCULOSKELETAL: No joint swelling or deformity. EXTREMITIES: No cyanosis, clubbing, or pedal edema. NEUROLOGICAL: Gross neurological examination did not reveal any focal deficits. SKIN: No rashes. Results CBC & Chem 7: 01/05/17 07:50 01/05/17 07:50 Labs: Abnormal Lab Results - Last 24 Hours (Table) 01/05/17 01/06/17 Range/Units 07:50 08:20 POC Glucose (mg/dL) 109 H (75-99) mg/dL TIBC 233 L (261-462) ug/dL Thrombosis Risk Factor Assmnt - Choose All That Apply Each Factor Represents 1 point: Obesity (BMI >25), Swollen legs (current) Other Risk Factors: Yes Each Risk Factor Represents 2 Points: Age 61-74 years Other congenital or acquired thrombophilia - If yes, enter type in comment: No Thrombosis Risk Factor Assessment Total Risk Factor Score: 4 Thrombosis Risk Factor Assessment Level: Moderate Risk Assessment and Plan Plan: Assessment and plan #1 acute upper GI bleed leading to my liquid as anemia: Most probably related to esophageal varices. I suspicion is low that gastritis is contributing to his symptoms and patient is undergoing upper GI endoscopy. #2 hepatic cirrhosis: Patient does have signs of cirrhosis although does not have any symptoms of hepatic encephalopathy. Patient will be started on Lasix IV fluids were discontinued and patient need to be further evaluated for causes of cirrhosis as patient denies any significant alcohol abuse. Patient related to follow Dr. Rivers as outpatient for further evaluation for etiology of cirrhosis. Patient will not be started on spironolactone as patient's potassium is 4.7. And patient is on lisinopril as well. #3 hypertension: Continue with his home medications #4 morbid obesity.
--- NOTE | 2017-01-06 11:11 | P.DS ---
Providers Date of admission: 01/05/17 00:00 Attending physician: Donna Munoz Consults: 01/04/17 23:59 Consult Physician Routine Consulting Provider: Donavon Black Consult Reason/Comments: gib Do you want consulting provider notified?: Yes Primary care physician: Sammy Dickens Hospital Course: Patient is admitted for operative bleed symptoms, symptoms resolved at this point of time secondary to esophageal varices and portal gastropathy. #1 acute upper GI bleed leading to my liquid as anemia: Secondary to to esophageal varices. Patient is status post upper GI endoscopy #2 hepatic cirrhosis: Patient does have signs of cirrhosis although does not have any symptoms of hepatic encephalopathy. Patient will will be discharged on oral Lasix fluids weresternal lactonenued and patient need to be further evaluated for causes of cirrhosis as patient denies any significant alcohol abuse. Patient related to follow Dr. Rivers as outpatient for further evaluation for etiology of cirrhosis. Patient will not be started on spironolactone as patient's potassium is 4.7. And patient is on lisinopril as well. #3 hypertension: Continue with his home medications #4 morbid obesity. Patient Condition at Discharge: Good Plan - Discharge Summary New Discharge Prescriptions: New Furosemide [Lasix] 40 mg PO BID #60 tablet Lactulose [Cephulac] 20 gm PO TID PRN #300 ml PRN Reason: Constipation Omeprazole [PriLOSEC] 40 mg PO AC-BRKFST #14 capsule.dr Todd Calzada Phillips 500 mg PO DAILY Furosemide [Lasix] 20 mg PO DAILY Cephalexin [Keflex] 500 mg PO TID No Action Ferrous Sulfate [Feosol] 325 mg PO Q48H Carvedilol [Coreg] 12.5 mg PO HS Cyanocobalamin (Vitamin B-12) [Vitamin B-12] 1,000 mcg PO DAILY Promethazine HCl/Codeine [Prometh-Codein 6.25-10 mg/5 ml] 5 ml PO Q6HR PRN PRN Reason: Cough Glimepiride [Amaryl] 1 mg PO BID Amlodipine Besylate/Valsartan [Exforge 5-320 mg Tablet] 1 tab PO DAILY Discharge Medication List Carvedilol [Coreg] 12.5 mg PO HS 11/23/16 [History] Cyanocobalamin (Vitamin B-12) [Vitamin B-12] 1,000 mcg PO DAILY 11/23/16 [ History] Ferrous Sulfate [Feosol] 325 mg PO Q48H 11/23/16 [History] Amlodipine Besylate/Valsartan [Exforge 5-320 mg Tablet] 1 tab PO DAILY 01/04/17 [History] Glimepiride [Amaryl] 1 mg PO BID 01/04/17 [History] Promethazine HCl/Codeine [Prometh-Codein 6.25-10 mg/5 ml] 5 ml PO Q6HR PRN 01/04 [History] Furosemide [Lasix] 40 mg PO BID #60 tablet 01/06/17 [Rx] Lactulose [Cephulac] 20 gm PO TID PRN #300 ml 01/06/17 [Rx] Omeprazole [PriLOSEC] 40 mg PO AC-BRKFST #14 capsule. 01/06/17 [Rx] Follow up Appointment(s)/Referral(s): Chirssie Christianson MD [Primary Care Provider] - 3 Days (Patient to call Dr. Christianson's office Sunday to schedule follow up appointment. The office is closed at time of discharge.) Chasidy Rivers MD [STAFF PHYSICIAN] - 1 Week (Patient to call Dr. Rivers's office Sunday to schedule follow up appointment. The office is closed at time of discharge.) Patient Instructions/Handouts: Furosemide (By mouth), Omeprazole (By mouth), Lactulose (By mouth), Gastrointestinal Bleeding (ED) Discharge Disposition: HOME SELF-CARE
[2017-01-06] MEDS ORDERED: CYANOCOBALAMIN 500 MCG TAB PO SCH (12:00)
[2017-01-08 07:29] LABS: ANA w/Reflex to Titer POSITIVE (NEGATIVE)
== END 2017-01-06 12:10 | disposition home or self-care (01) | DRG 378 ==
LOC: EC 22:44 → 5MS5E 01-05
PROVIDERS: ADMIT Hospitalist; ATTEND Hospitalist
PROC: 0DJ08ZZ Inspection of Upper Intestinal Tract, Via Natural or Artificial Opening Endoscopic (ICD-10-PCS; principal; 2017-01-05 07:30)
DX: K92.0 Hematemesis (principal); R18.8 Other ascites; K76.6 Portal hypertension; I85.00 Esophageal varices without bleeding; E66.01 Morbid (severe) obesity due to excess calories; K74.60 Unspecified cirrhosis of liver; Z68.33 Body mass index [BMI] 33.0-33.9, adult; K44.9 Diaphragmatic hernia without obstruction or gangrene; K31.89 Other diseases of stomach and duodenum; K29.70 Gastritis, unspecified, without bleeding; I10 Essential (primary) hypertension; K21.9 Gastro-esophageal reflux disease without esophagitis; Z98.42 Cataract extraction status, left eye; Z98.41 Cataract extraction status, right eye; Z79.84 Long term (current) use of oral hypoglycemic drugs; Z79.899 Other long term (current) drug therapy
CPT/HCPCS: 36415; 43235; 76705; 80053; 82103; 82390; 82550; 82553; 82728; 83516; 83540; 83550; 83690; 83735; 84165; 84484; 85025; 85610; 85730; 86038; 86039; 86803; 86850; 86900; 86901; 87340; 96361; 96374; 96375; 99285

== ENCOUNTER → 2018-01-15 | Outpatient (CLI) | payer MEDICARE ==
--- NOTE | 2018-01-15 10:37 | US ---
EXAMINATION TYPE: US abdomen complete DATE OF EXAM: 01/15/2018 COMPARISON: US complete abdomen December 21, 2016, CT abdomen and pelvis September 23, 2016 6 CLINICAL HISTORY: K74.60 Unspecified cirrhosis of liver; renal cysts; GERD EXAM MEASUREMENTS: Liver Length: 18.5 cm Gallbladder Wall: 0.4 cm CBD: 0.7 cm Spleen: 16.0 x 15.8 x 6.3 cm Right Kidney: 11.0 x 6.1 x 6.0 cm Left Kidney: 14.6 x 8.4 x 6.6 cm Pancreas: Obscured by bowel gas Liver: heterogeneous; hyperechoic masses seen in right lobe inferiorly with largest hyperechoic comp flower area = 3.2 x 2.7 x 2.0cm Gallbladder: full of echogenic/heterogeneous contents and thickened wall Evidence for sonographic Jauregui's sign: no CBD: size is age appropriate for 7th decade Spleen: enlarged Right Kidney: cortical cyst noted upper lateral pole = 1.3 x 1.1 x 1.0cm Left Kidney: multiple cysts with largest simple cyst = 9.2 x 6.1 x 5.5cm; complex cyst noted mid kenna e = 1.5 x 1.5 x 1.4cm Upper IVC: wnl Abd Aorta: limitedly seen upper aorta but size is wnl Small amount of ascites is seen superior to right liver lobe. For liver vascularity assessment: Main Portal Vein Flow and FIDELINA Flow is to liver; Hepatic Vein Flow i s to IVC as able to visualize hepatic veins. Pancreas is suboptimally seen on images saved. There is no aneurysmal change in visualized abdominal aorta. IVC is seen near hepatic dome. Visualized liver remains small in size and heterogeneously hyperechoic in appearance with lobulated p eripheral margins. Finding consistent with underlying cirrhosis. No intrahepatic ductal dilatation is seen. Evaluation for focal masses suboptimal due to the heterogeneity. Technologist talamantes vague 1.1 cm hyperechoic area right hepatic lobe inferiorly likely corresponding to vague hypoechoic lesion CT series 6 image 37. There is normal monophasic hepatopedal flow to liver and main portal vein. There i s patent hepatic vein draining into IVC. Tiny amount of perihepatic ascites is present inferiorly ant eriorly along right lobe diminished in size from prior CT. Inferior to small hyperechoic lesion there is 2.7 x 2.0 cm vague hyperechoic lesion inferior right hepatic lobe. Gallbladder is poorly visualiz ed suspected sludge and/or small stone debris-filled Technologist talamantes 1.0 cm simple appearing cyst upper pole level right kidney. Splenomegaly is redemo nstrated felt slightly larger versus prior CT. No surrounding ascites is present on images saved. Lef t kidney redemonstrates large exophytic simple appearing lobulated cyst laterally difficult to accura tely visualize on ultrasound due to large size. IMPRESSION: Cirrhosis with diminished ascites. Nonspecific inferior right hepatic lobe liver lesion, can be better assessed with liver protocol contrast-enhanced CT or MRI. Slightly more prominent splen omegaly. Sludge/stone filled gallbladder redemonstrated.
== END | disposition home or self-care (01) ==
LOC: RADUSWWP 08:33
DX: K74.60 Unspecified cirrhosis of liver (principal); K76.89 Other specified diseases of liver; R16.1 Splenomegaly, not elsewhere classified
CPT/HCPCS: 76700

== ENCOUNTER → 2018-03-26 | Outpatient (CLI) | payer MEDICARE ==
--- NOTE | 2018-03-26 14:17 | MR ---
MR liver without contrast HISTORY: Abnormal findings Multiplanar multisequence imaging through the liver. Patient was unable to complete the exam due to s hortness of breath. Correlation to ultrasound abdomen 01/15/2018, CT abdomen pelvis 11/23/2016 There is motion on the exam. The liver shows a nodular contour compatible with cirrhosis, the spleen is enlarged. Liver shows mult iple nodular foci throughout the substance, sizable nodular area present in the inferior aspect of th e right lobe of the liver. There is ascites. Cortical cysts are associated with the left kidney, the largest measures approximately 8.6 cm in exophytic location at the lower pole, cysts within the right kidney are smaller. There is a hiatal hernia. Suspect varices at the gastroesophageal junction. Gall bladder shows dependent foci compatible with stones. Pancreas is unremarkable. Adrenal glands are nor mal. Lung bases are clear. Impression: Exam is limited. Findings compatible with cirrhosis and probable portal hypertension, spl enomegaly. Foci within the liver could be related to degenerative nodules, hepatocellular carcinoma i s not excluded however. Cholelithiasis. Renal cortical cysts are likely simple. Ascites. Hiatal herni a.
== END | disposition home or self-care (01) ==
LOC: RADMRIMAIN 11:28
DX: K74.60 Unspecified cirrhosis of liver (principal); K80.20 Calculus of gallbladder without cholecystitis without obstruction; K44.9 Diaphragmatic hernia without obstruction or gangrene; R18.8 Other ascites
CPT/HCPCS: 74181; 82565; 84520

== ENCOUNTER 2018-04-10 11:58 | Inpatient (IN) | payer MEDICARE ==
[2018-04-10 12:59] LABS: Basophils % (A) 0 %; Eosinophils # (A) 0.1 k/uL (0-0.7); Eosinophils % (A) 2 %; HCT 36.2 % (39.0-53.0); HGB 11.3 gm/dL (13.0-17.5); Hypochromasia Slight; Lymphocytes # (A) 0.8 k/uL (1.0-4.8); Lymphocytes % (A) 14 %; MCH 33.4 pg (25.0-35.0); MCHC 31.3 g/dL (31.0-37.0); MCV 106.7 fL (80.0-100.0); Macrocytosis Moderate; Mean Platelet Volume 8.3; Monocytes # (A) 0.4 k/uL (0-1.0); Monocytes % (A) 7 %; Neutrophils % (A) 73 %; Platelet Count 120 k/uL (150-450); RBC 3.39 m/uL (4.30-5.90); RDW 14.9 % (11.5-15.5); WBC 5.4 k/uL (3.8-10.6)
[2018-04-10 13:07] LABS: INR 1.5 (<1.2); Partial Thromboplastin Time 30.9 sec (22.0-30.0); Prothrombin Time 14.1 sec (9.0-12.0)
[2018-04-10 13:15] LABS: Albumin 2.7 g/dL (3.5-5.0); Calcium 8.9 mg/dL (8.4-10.2); Total Bilirubin 7.3 mg/dL (0.2-1.3); Total Protein 7.5 g/dL (6.3-8.2)
[2018-04-10 13:22] LABS: Potassium 6.3 mmol/L (3.5-5.1)
[2018-04-10] MEDS ORDERED: DEXTROSE 50%-WATER 50 ML SYRINGE IVP ONE (13:27)
[2018-04-10] MEDS ORDERED: INSULIN REGULAR 100 UNIT/ML VIAL IV ONE ×2 (13:27→22:57)
[2018-04-10] MEDS ORDERED: SODIUM POLYSTYRENE SULFONATE 15 GM/60 ML BOTTLE PO ONE (13:27)
[2018-04-10] MEDS ORDERED: CALCIUM CHLORIDE 1,000 MG in SODIUM CHLORIDE 0.9% 100 ML IV ONE (13:27)
[2018-04-10] MEDS ORDERED: SODIUM CHLORIDE 0.9% 1,000 ML IV ONE (13:30)
[2018-04-10 13:45] LABS: Appearance,Urine Cloudy (Clear); Bilirubin,Urine 1+ (Negative); Blood,Urine Negative (Negative); Color,Urine Brown; Glucose,Urine (UA) Negative (Negative); Ketones,Urine Trace (Negative); Leukocyte Esterase,Urine Trace (Negative); Mucus,Urine Rare /hpf; Nitrite,Urine Negative (Negative); PH, Urine 5.5 (5.0-8.0); Protein,Urine Trace (Negative); RBC,Urine 1 /hpf (0-5); Specific Gravity,Urine 1.017 (1.001-1.035); Squamous Epithelial Cell,Urine <1 /hpf (0-4); WBC,Urine 5 /hpf (0-5)
--- NOTE | 2018-04-10 13:46 | ED ---
General Adult HPI - General Chief complaint: Recheck/Abnormal Lab/Rx Stated complaint: STATES HIGH POTASSIUM, SENT BY Time Seen by Provider: 04/10/18 12:11 Source: patient, RN notes reviewed Mode of arrival: ambulatory Limitations: no limitations - History of Present Illness Initial comments: This is a 72-year-old male presents emergency Department for abnormal labs. Patient states that he has not felt well recently and states that he went into his PCP and was recently treated for an upper respiratory infection. Patient was treated with Zithromax and now started on Levaquin. Patient states that he had lab work drawn and was told to emergency room secondary to elevated bilirubin and potassium. Patient states that family members noticed that he appears to yellow. Patient does admit that he currently sees GI for possible liver disease. Patient states she's been diagnosed with cirrhosis though he's had an MRI which showed possibility of one abnormal lesion. Patient scheduled for another ultrasound at [facility]. Patient states that he has not been eating and drinking well because he does not feel ill. He has noticed his urine is darker than usual. Patient denies fever, chills, chest pain, shortness breath. Patient does state that he's had a cough which she was treated for and has improved. - Related Data Home Medications Medication Instructions Recorded Confirmed Carvedilol [Coreg] 12.5 mg PO HS 11/23/16 05/02/17 Cyanocobalamin (Vitamin B-12) 1,000 mcg PO DAILY 11/23/16 05/02/17 [Vitamin B-12] Ferrous Sulfate [Feosol] 325 mg PO Q48H 11/23/16 05/02/17 Amlodipine Besylate/Valsartan 1 tab PO DAILY 01/04/17 05/02/17 [Exforge 5-320 mg Tablet] Glimepiride [Amaryl] 1 mg PO BID 01/04/17 05/02/17 Promethazine HCl/Codeine 5 ml PO Q6HR PRN 01/04/17 05/02/17 [Prometh-Codein 6.25-10 mg/5 ml] Previous Rx's Medication Instructions Recorded Furosemide [Lasix] 40 mg PO BID #60 tablet 01/06/17 Lactulose [Cephulac] 20 gm PO TID PRN #300 ml 01/06/17 Omeprazole [PriLOSEC] 40 mg PO AC-BRKFST #14 capsule. 01/06/17 Allergies Allergy/AdvReac Type Severity Reaction Status Date / Time No Known Allergies Allergy Verified 04/10/18 12:10 Review of Systems ROS Statement: Those systems with pertinent positive or pertinent negative responses have been documented in the HPI. ROS Other: All systems not noted in ROS Statement are negative. Past Medical History Past Medical History: Diabetes Mellitus, GERD/Reflux, Hypertension Additional Past Medical History / Comment(s): Renal cysts History of Any Multi-Drug Resistant Organisms: None Reported Past Surgical History: No Surgical Hx Reported Additional Past Surgical History / Comment(s): cataracts Past Psychological History: No Psychological Hx Reported Smoking Status: Never smoker Past Alcohol Use History: None Reported Past Drug Use History: None Reported - Past Family History Mother Family Medical History: No Reported History Additional Family Medical History / Comment(s): Pt adopted, but knows mother. Healthy at 95y/o Father Family Medical History: Liver Disease, Myocardial Infarction ([place]) Additional Family Medical History / Comment(s): , heavy drinker General Exam Limitations: no limitations General appearance: alert, in no apparent distress Head exam: Present: atraumatic, normocephalic, normal inspection Eye exam: Present: normal appearance, PERRL, EOMI, scleral icterus. Absent: conjunctival injection, periorbital swelling ENT exam: Present: normal exam, normal oropharynx, mucous membranes moist, TM's normal bilaterally, normal external ear exam Neck exam: Present: normal inspection, full ROM. Absent: tenderness, meningismus, lymphadenopathy Respiratory exam: Present: normal lung sounds bilaterally. Absent: respiratory distress, wheezes, rales, rhonchi, stridor Cardiovascular Exam: Present: normal rhythm, tachycardia, normal heart sounds. Absent: systolic murmur, diastolic murmur, rubs, gallop, clicks GI/Abdominal exam: Present: soft, normal bowel sounds. Absent: distended, tenderness, guarding, rebound, rigid Neurological exam: Present: alert, oriented X3, CN II-XII intact Skin exam: Present: warm, dry, intact, normal color. Absent: rash Course Vital Signs 04/10/18 04/10/18 12:06 14:49 Temperature 97.9 F Pulse Rate 109 H 99 Respiratory 18 16 Rate Blood Pressure 114/66 145/67 O2 Sat by Pulse 98 97 Oximetry EKG Findings - EKG Comments: EKG Findings:: EKG performed at 13:31 normal sinus rhythm with a rate of 98 WI 160 QRS 82 QT/QTC 372/474 Medical Decision Making - Lab Data Result diagrams: 04/10/18 12:47 04/10/18 12:47 Lab Results 04/10/18 04/10/18 04/10/18 Range/Units 12:47 12:47 12:47 WBC 5.4 (3.8-10.6) k/uL RBC 3.39 L (4.30-5.90) m/uL Hgb 11.3 L (13.0-17.5) gm/dL Hct 36.2 L (39.0-53.0) % MCV 106.7 H (80.0-100.0) fL MCH 33.4 (25.0-35.0) pg MCHC 31.3 (31.0-37.0) g/dL RDW 14.9 (11.5-15.5) % Plt Count 120 L (150-450) k/uL Neutrophils % 73 % Lymphocytes % 14 % Monocytes % 7 % Eosinophils % 2 % Basophils % 0 % Neutrophils # 4.0 (1.3-7.7) k/uL Lymphocytes # 0.8 L (1.0-4.8) k/uL Monocytes # 0.4 (0-1.0) k/uL Eosinophils # 0.1 (0-0.7) k/uL Basophils # 0.0 (0-0.2) k/uL Hypochromasia Slight Macrocytosis Moderate PT 14.1 H (9.0-12.0) sec INR 1.5 H (<1.2) APTT 30.9 H (22.0-30.0) sec Sodium 141 (137-145) mmol/L Potassium 6.3 H* (3.5-5.1) mmol/L Chloride 115 H (98-107) mmol/L Carbon Dioxide 15 L (22-30) mmol/L Anion Gap 11 mmol/L BUN 53 H (9-20) mg/dL Creatinine 2.01 H (0.66-1.25) mg/dL Est GFR (CKD-EPI)AfAm 38 (>60 ml/min/1.73 sqM) Est GFR (CKD-EPI)NonAf 32 (>60 ml/min/1.73 sqM) Glucose 163 H (74-99) mg/dL Calcium 8.9 (8.4-10.2) mg/dL Total Bilirubin 7.3 H (0.2-1.3) mg/dL AST 194 H (17-59) U/L ALT 67 (21-72) U/L Alkaline Phosphatase 188 H (38-126) U/L Total Protein 7.5 (6.3-8.2) g/dL Albumin 2.7 L (3.5-5.0) g/dL Amylase 55 (30-110) U/L Lipase 203 (23-300) U/L Urine Color Urine Appearance (Clear) Urine pH (5.0-8.0) Ur Specific [place] (1.001-1.035) Urine Protein (Negative) Urine Glucose (UA) (Negative) Urine Ketones (Negative) Urine Blood (Negative) Urine Nitrite (Negative) Urine Bilirubin (Negative) Urine Urobilinogen (<2.0) mg/dL Ur Leukocyte Esterase (Negative) Urine RBC (0-5) /hpf Urine WBC (0-5) /hpf Ur Squamous Epith Cells (0-4) /hpf Urine Mucus (None) /hpf Acetaminophen ug/mL 04/10/18 04/10/18 Range/Units 12:47 13:20 WBC (3.8-10.6) k/uL RBC (4.30-5.90) m/uL Hgb (13.0-17.5) gm/dL Hct (39.0-53.0) % MCV (80.0-100.0) fL MCH (25.0-35.0) pg MCHC (31.0-37.0) g/dL RDW (11.5-15.5) % Plt Count (150-450) k/uL Neutrophils % % Lymphocytes % % Monocytes % % Eosinophils % % Basophils % % Neutrophils # (1.3-7.7) k/uL Lymphocytes # (1.0-4.8) k/uL Monocytes # (0-1.0) k/uL Eosinophils # (0-0.7) k/uL Basophils # (0-0.2) k/uL Hypochromasia Macrocytosis PT (9.0-12.0) sec INR (<1.2) APTT (22.0-30.0) sec Sodium (137-145) mmol/L Potassium (3.5-5.1) mmol/L Chloride (98-107) mmol/L Carbon Dioxide (22-30) mmol/L Anion Gap mmol/L BUN (9-20) mg/dL Creatinine (0.66-1.25) mg/dL Est GFR (CKD-EPI)AfAm (>60 ml/min/1.73 sqM) Est GFR (CKD-EPI)NonAf (>60 ml/min/1.73 sqM) Glucose (74-99) mg/dL Calcium (8.4-10.2) mg/dL Total Bilirubin (0.2-1.3) mg/dL AST (17-59) U/L ALT (21-72) U/L Alkaline Phosphatase (38-126) U/L Total Protein (6.3-8.2) g/dL Albumin (3.5-5.0) g/dL Amylase (30-110) U/L Lipase (23-300) U/L Urine Color Brown Urine Appearance Cloudy (Clear) Urine pH 5.5 (5.0-8.0) Ur Specific [place] 1.017 (1.001-1.035) Urine Protein Trace H (Negative) Urine Glucose (UA) Negative (Negative) Urine Ketones Trace H (Negative) Urine Blood Negative (Negative) Urine Nitrite Negative (Negative) Urine Bilirubin 1+ H (Negative) Urine Urobilinogen 3.0 (<2.0) mg/dL Ur Leukocyte Esterase Trace H (Negative) Urine RBC 1 (0-5) /hpf Urine WBC 5 (0-5) /hpf Ur Squamous Epith Cells <1 (0-4) /hpf Urine Mucus Rare H (None) /hpf Acetaminophen <10.0 ug/mL Disposition Clinical Impression: Acute renal failure, Jaundice, Liver cirrhosis, Hyperkalemia Disposition: ADMITTED IP TO THIS HOSP Condition: Fair
[2018-04-10] MEDS ORDERED: ONDANSETRON 4 MG/2 ML VIAL IVP PRN (14:18)
[2018-04-10] MEDS ORDERED: SODIUM CHLORIDE 0.9% 1,000 ML IV SCH (14:30)
--- NOTE | 2018-04-10 14:45 | US ---
EXAMINATION TYPE: US abdomen limited DATE OF EXAM: 04/10/2018 COMPARISON: US, MRI dated 03/26/2018 CLINICAL HISTORY: Elevated bilirubin, abdominal pain right upper; elevated potassium; patient ate 4 h ours ago; liver cirrhosis EXAM MEASUREMENTS: Liver Length: 18.1 cm Gallbladder Wall: 0.5 cm CBD: 0.5 cm Right Kidney: 11.0 x 5.2 x 5.4 cm Us is technically limited by overlying bowel gas due to not full NPO status of 6 to 8 hours. Pancreas: hyperechoic Liver: enlarged, heterogeneous appearance with nodular borders; 2 hepatic masses noted with larger s een inferior right lobe = 3.7 x 4.9 x 4.4cm Gallbladder: gallbladder fully distended with internal debris noted; abnormally thickened wall Evidence for sonographic Jauregui's sign: tender RUQ CBD: wnl Right Kidney: wnl Ascites is seen in all 4 abdominal quadrants IMPRESSION: Indeterminate liver masses. Cirrhosis, correlate for hepatocellular carcinoma. Limited ex am. Ascites. Correlate to exclude cholecystitis.
[2018-04-10 14:59] LABS: Hepatitis A AB IgM Index 0.01; Hepatitis A Antibody IgM NEGATIVE
--- NOTE | 2018-04-10 15:05 | XR ---
EXAMINATION TYPE: XR chest 2V DATE OF EXAM: 04/10/2018 COMPARISON: CT abdomen pelvis 11/23/2016 HISTORY: Pain, cough TECHNIQUE: Frontal and lateral views of the chest are obtained. FINDINGS: Right hemidiaphragm is elevated, patient is rotated. Patchy basilar density is noted. No e vident pneumothorax. Cardiac mediastinal silhouette, vascularity and davina within normal limits. IMPRESSION: Probable basilar atelectasis, correlate to exclude pneumonia. Follow-up recommended. Adeline vated right hemidiaphragm.
--- NOTE | 2018-04-10 15:25 | P.HPIM ---
History of Present Illness 80-year-old pleasant gentleman came in with compensative abnormal Lasix and his potassium is found to be 6.3. Patient is presently being treated with dextrose insulin, calcium gluconate, Kayexalate this time. Patient is on Aldactone for cirrhosis along with an JAVIER inhibitor for blood pressure and worsening renal function. Patient was seen 2 years ago and was admitted to my service at the time and was diagnosed with cirrhosis passably at the time. Etiologies of cirrhosis is unknown patient had had workup as an outpatient by gastroenterology. Patient and an outpatient MRCP which she did show cirrhosis and the possibility of habitus alert carcinoma cannot be ruled out as per the reading and this is being evaluated and followed up by gastroenterology as an outpatient. Patient was recently started on levofloxacin for upper respiratory infection patient has dry cough doesn't appear to have any bronchitis will not require Levaquin which will be discontinued. Patient does have abdominal distention will ascites and the fluid shift, his Lasix was recently discontinued as his ascites is not bad and getting better and was started on Aldactone. Patient's creatinine is around 2 which was around 1 last year. Patient will be started on gentle hydration, I do have concern of hepatorenal syndrome because of which nephrology will be consulted patient does have jaundice and direct bilirubinemia from cirrhosis. Gastroenterology will be consulted as well. His urine is darker because of jaundice. Patient was complaining of generalized fatigue Review of Systems REVIEW OF SYSTEMS: CONSTITUTIONAL: No fever, HEENT: No recent visual problems or hearing problems. Denied any sore throat. CARDIOVASCULAR: No chest pain, orthopnea, PND, no palpitations, no syncope. PULMONARY: No shortness of breath, no cough, no hemoptysis. GASTROINTESTINAL: No diarrhea, no nausea, no vomiting, no abdominal pain. Normoactive bowel sounds. NEUROLOGICAL: No headaches, no weakness, no numbness. HEMATOLOGICAL: Denies any bleeding or petechiae. GENITOURINARY: Denies any burning micturition, frequency, or urgency. MUSCULOSKELETAL/RHEUMATOLOGICAL: Denies any joint pain, swelling, or any muscle pain. ENDOCRINE: Denies any polyuria or polydipsia. The rest of the 14-point review of systems is negative. Past Medical History Past Medical History: Diabetes Mellitus, GERD/Reflux, Hypertension Additional Past Medical History / Comment(s): Renal cysts History of Any Multi-Drug Resistant Organisms: None Reported Past Surgical History: No Surgical Hx Reported Additional Past Surgical History / Comment(s): cataracts Past Psychological History: No Psychological Hx Reported Smoking Status: Never smoker Past Alcohol Use History: None Reported Past Drug Use History: None Reported - Past Family History Mother Family Medical History: No Reported History Additional Family Medical History / Comment(s): Pt adopted, but knows mother. Healthy at 95y/o Father Family Medical History: Liver Disease, Myocardial Infarction ([place]) Additional Family Medical History / Comment(s): , heavy drinker Medications and Allergies Home Medications Medication Instructions Recorded Confirmed Type Cyanocobalamin (Vitamin B-12) 1,000 mcg PO DAILY 11/23/16 04/10/18 History [Vitamin B-12] Ferrous Sulfate [Feosol] 325 mg PO DAILY 11/23/16 04/10/18 History Amlodipine Besylate/Valsartan 0.5 tab PO DAILY 01/04/17 04/10/18 History [Exforge 5-320 mg Tablet] Promethazine HCl/Codeine 5 - 10 ml PO Q6HR PRN 01/04/17 04/10/18 History [Prometh-Codein 6.25-10 mg/5 ml] Fluticasone/Vilanterol [Breo 1 puff INHALATION RT-DAILY 04/10/18 04/10/18 History Ellipta 100-25 Mcg Inhaler] Levofloxacin [Levaquin] 500 mg PO DAILY 04/10/18 04/10/18 History Meclizine [Antivert] 25 mg PO BID 04/10/18 04/10/18 History Omeprazole [PriLOSEC] 20 mg PO DAILY 04/10/18 04/10/18 History Spironolactone 25 mg PO DAILY 04/10/18 04/10/18 History Allergies Allergy/AdvReac Type Severity Reaction Status Date / Time No Known Allergies Allergy Verified 04/10/18 15:03 Physical Exam Vitals: Vital Signs Temp Pulse Resp BP Pulse Ox 04/10/18 14:49 99 16 145/67 97 04/10/18 12:06 97.9 F 109 H 18 114/66 98 Intake and Output 04/10/18 04/10/18 04/10/18 06:59 14:59 22:59 Other: Weight 97.522 kg PHYSICAL EXAMINATION: GENERAL: The patient is alert and oriented x3, not in any acute distress. Well developed, well nourished. Yellowish discoloration of skin HEENT: Pupils are round and equally reacting to light. EOMI. does have scleral icterus. No conjunctival pallor. Normocephalic, atraumatic. No pharyngeal erythema. No thyromegaly. CARDIOVASCULAR: S1 and S2 present. No murmurs, rubs, or gallops. PULMONARY: Chest is clear to auscultation, no wheezing or crackles. ABDOMEN: Distended nontender fluid shift present MUSCULOSKELETAL: No joint swelling or deformity. EXTREMITIES: No cyanosis, clubbing, or pedal edema. NEUROLOGICAL: Gross neurological examination did not reveal any focal deficits. SKIN: No rashes. Results CBC & Chem 7: 04/10/18 12:47 04/10/18 12:47 Labs: Abnormal Lab Results - Last 24 Hours (Table) 04/10/18 04/10/18 04/10/18 Range/Units 12:47 12:47 12:47 RBC 3.39 L (4.30-5.90) m/uL Hgb 11.3 L (13.0-17.5) gm/dL Hct 36.2 L (39.0-53.0) % MCV 106.7 H (80.0-100.0) fL Plt Count 120 L (150-450) k/uL Lymphocytes # 0.8 L (1.0-4.8) k/uL PT 14.1 H (9.0-12.0) sec INR 1.5 H (<1.2) APTT 30.9 H (22.0-30.0) sec Potassium 6.3 H* (3.5-5.1) mmol/L Chloride 115 H (98-107) mmol/L Carbon Dioxide 15 L (22-30) mmol/L BUN 53 H (9-20) mg/dL Creatinine 2.01 H (0.66-1.25) mg/dL Glucose 163 H (74-99) mg/dL Total Bilirubin 7.3 H (0.2-1.3) mg/dL AST 194 H (17-59) U/L Alkaline Phosphatase 188 H (38-126) U/L Albumin 2.7 L (3.5-5.0) g/dL Urine Protein (Negative) Urine Ketones (Negative) Urine Bilirubin (Negative) Ur Leukocyte Esterase (Negative) Urine Mucus (None) /hpf 04/10/18 Range/Units 13:20 RBC (4.30-5.90) m/uL Hgb (13.0-17.5) gm/dL Hct (39.0-53.0) % MCV (80.0-100.0) fL Plt Count (150-450) k/uL Lymphocytes # (1.0-4.8) k/uL PT (9.0-12.0) sec INR (<1.2) APTT (22.0-30.0) sec Potassium (3.5-5.1) mmol/L Chloride (98-107) mmol/L Carbon Dioxide (22-30) mmol/L BUN (9-20) mg/dL Creatinine (0.66-1.25) mg/dL Glucose (74-99) mg/dL Total Bilirubin (0.2-1.3) mg/dL AST (17-59) U/L Alkaline Phosphatase (38-126) U/L Albumin (3.5-5.0) g/dL Urine Protein Trace H (Negative) Urine Ketones Trace H (Negative) Urine Bilirubin 1+ H (Negative) Ur Leukocyte Esterase Trace H (Negative) Urine Mucus Rare H (None) /hpf Assessment and Plan Plan: -Hyperkalemia secondary to renal failure along with JAVIER inhibitor and Aldactone all of which will be discontinued patient will be triaged treated as mentioned above. We'll repeat basic metabolic profile tomorrow. -Generalized weakness secondary to hyperkalemia and renal failure. -Renal failure due to intravascular volume depletion prerenal azotemia in spite of ascites and volume load his intravascular volume is low and there is a concern of hepatorenal syndrome will gently hydrate him in spite of his ascites and will also get the opinion from nephrology regarding Lasix versus IV fluids. -Hepatic cirrhosis: Etiology unclear patient has obstructive jaundice from cirrhosis. Patient did have history of esophageal varices and GI bleed in the past -Hypertension amlodipine and Coreg will be continued, JVAIER inhibitor will be discontinued -Type 2 diabetes mellitus: Patient was started on sliding scale insulin Elevated liver enzymes secondary to cirrhosis, mild elevation in AST along with direct hyperbilirubinemia
[2018-04-10 16:40] LABS: Glucose,Whole Blood 145 mg/dL (75-99)
[2018-04-10 19:03] LABS: Hepatitis B Core IgM Non-Reactive (Non-Reactive)
[2018-04-10] MEDS ORDERED: LORATADINE 10 MG TAB PO ONE (20:00)
[2018-04-10 21:03] LABS: Glucose,Whole Blood 129 mg/dL (75-99)
[2018-04-10] MEDS: SYMBICORT 80-4.5 MCG INHALER INHALATION SCH (21:12)
[2018-04-10] MEDS: FAMOTIDINE 20 MG TAB PO SCH (21:21)
[2018-04-10] MEDS: MECLIZINE 25 MG TAB PO SCH (21:21)
[2018-04-10] MEDS ORDERED: DEXTROSE 50%-WATER 50 ML SYRINGE IVP STA (22:57)
[2018-04-10] MEDS ORDERED: SODIUM POLYSTYRENE SULFONATE 15 GM/60 ML BOTTLE PO STA (22:58)
[2018-04-10] MEDS: ALBUTEROL NEBULIZED 2.5 MG/3 ML INHALATION SCH ×2 (23:21→23:48)
[2018-04-10] MEDS: SODIUM CHLORIDE 0.9% 1,000 ML IV SCH (23:37)
[2018-04-11] MEDS: ALBUTEROL NEBULIZED 2.5 MG/3 ML INHALATION SCH ×5 (04:38→19:44)
[2018-04-11 06:07] LABS: HCT 33.4 % (39.0-53.0); HGB 10.8 gm/dL (13.0-17.5); Hypochromasia Slight; MCH 34.5 pg (25.0-35.0); MCHC 32.5 g/dL (31.0-37.0); Macrocytosis Moderate; Platelet Count 112 k/uL (150-450); RBC 3.15 m/uL (4.30-5.90); RDW 15.2 % (11.5-15.5); WBC 5.1 k/uL (3.8-10.6)
[2018-04-11 06:13] LABS: Glucose,Whole Blood 83 mg/dL (75-99)
[2018-04-11 06:17] LABS: INR 1.5 (<1.2); Prothrombin Time 14.1 sec (9.0-12.0)
[2018-04-11 06:28] LABS: Albumin 2.5 g/dL (3.5-5.0); Calcium 8.8 mg/dL (8.4-10.2); Potassium 5.9 mmol/L (3.5-5.1); Total Bilirubin 7.1 mg/dL (0.2-1.3)
[2018-04-11] MEDS: SYMBICORT 80-4.5 MCG INHALER INHALATION SCH ×3 (07:26→19:50)
[2018-04-11] MEDS: MECLIZINE 25 MG TAB PO SCH ×2 (08:52→21:03)
[2018-04-11] MEDS: FAMOTIDINE 20 MG TAB PO SCH (08:52)
[2018-04-11] MEDS: amLODIPine 5 MG TAB PO SCH (08:52)
[2018-04-11] MEDS ORDERED: FUROSEMIDE 10 MG/ML 2 ML VIAL IV ONE (08:54)
--- NOTE | 2018-04-11 10:10 | CONS ---
CONSULTATION REASON FOR CONSULT: Renal failure, hyperkalemia. HISTORY OF PRESENT ILLNESS: Patient is a 72-year-old male who was admitted from the emergency room yesterday as he was called by his primary care physician to go to the hospital for elevated potassium. Serum potassium was 6.2 and 6.3 mEq/L. Patient denies use of nonsteroidal anti- inflammatory agents recently. However, he has taken Advil previously. He is also maintained on Exforge which contains valsartan and spironolactone at home. Serum creatinine was 1.9 mg/dL and 2.0. Review of lab shows previous creatinine on 03/26/2018 to be 1.19. Blood pressure was not low when patient came into the hospital. Patient did state that he had not been eating or drinking much for a few days prior to admission. He had some nausea. He denied any diarrhea, fever, chills. He has had some cough. PAST MEDICAL HISTORY: Significant for hypertension, chronic liver disease, type 2 diabetes, gastroesophageal reflux disease, history of hypertension, history of renal cyst. PAST SURGICAL HISTORY: None. SOCIAL HISTORY: Negative for smoking, drug abuse or alcohol abuse. MEDICATIONS: At home prior to admission included iron, B12, Exforge, Breo, Antivert, Prilosec, spirinolactone, Levaquin. ALLERGIES: None. REVIEW OF SYSTEMS: As per HPI. Other systems negative. PHYSICAL EXAMINATION: Patient is comfortable, awake, alert, oriented x3, not in any acute distress. Blood pressure is 150/70, heart rate 100 per minute. He is afebrile. Examination of the heart, S1, S2. Examination of the lungs, bilateral breath sounds. Abdomen is soft, nontender. Examination of the lower extremities shows trace edema bilaterally. [employer] exam is grossly intact. LABS: Show sodium of 139, potassium 5.9, chloride 115, CO2 is 16, BUN 53, serum creatinine 1.9, hemoglobin 10.8 g/dL. UA shows trace protein, ketones trace. No blood is seen. ASSESSMENT: 1. Acute kidney injury, possibly prerenal, currently nonoliguric with renal function about the same as yesterday. Patient is maintained on IV fluids, the angiotensin receptor blockers are on hold. Ultrasound does not show any evidence of obstruction; however, only the right kidney was seen since it was an ultrasound of the abdomen. We will obtain imaging of the left kidney as well. 2. Hyperkalemia associated with acute kidney injury, use of angiotensin receptor blockers and Aldactone, currently improved. I will give a dose of IV Lasix and recheck a potassium this evening. Blood sugars are not significantly elevated. Patient should be maintained on a low-potassium diet. 3. Metabolic acidosis secondary to renal failure. Add sodium bicarb which will help with the hyperkalemia as well. PLAN: IV Lasix x1. Add sodium bicarb, repeat potassium this evening. Repeat labs. Check renal ultrasound as the left kidney was not visualized on the abdominal ultrasound done and patient should be maintained on a low-potassium diet as well. Thank you for this consultation. Will continue to follow this patient with you during his hospitalization. MMODL / IJN: [id number] /
--- NOTE | 2018-04-11 11:07 | US ---
EXAMINATION TYPE: US renals and bladder DATE OF EXAM: 04/11/2018 COMPARISON: 04/10/2018 CLINICAL HISTORY: RF. Patient states having a history of left renal cyst. Patient states voiding 5 m inutes ago. EXAM MEASUREMENTS: Right Kidney: 10.4 x 4.3 x 5.0 cm Left Kidney: 11.0 x 4.5 x 5.6 cm Right Kidney: No hydronephrosis or masses seen Left Kidney: lateral upper pole cystic appearing lesion seen = 7.5 x 6.6 x 6.4 cm. Limited visualiza tion of lower pole due to overlying bowel gas. Bladder: not seen due to patient just voiding Bilateral Jets not seen Ascites visualized Incidental finding- enlarged spleen = 16.0 cm IMPRESSION: 1. There is a 7.5 cm simple appearing left renal cyst with no hydronephrosis or nephrolithiasis bilat erally. 2. Incidental note made of splenomegaly measuring 16 cm. 3. There is a small amount ascites
[2018-04-11] MEDS ORDERED: SODIUM POLYSTYRENE SULFONATE 15 GM/60 ML BOTTLE PO STA (11:32)
[2018-04-11 11:48] LABS: Glucose,Whole Blood 95 mg/dL (75-99)
[2018-04-11] MEDS: SODIUM CHLORIDE 0.9% 1,000 ML IV SCH (11:49)
[2018-04-11 15:09] LABS: Basophils % (A) 0 %; Eosinophils # (A) 0.1 k/uL (0-0.7); Eosinophils % (A) 2 %; HCT 35.9 % (39.0-53.0); HGB 11.1 gm/dL (13.0-17.5); Hypochromasia Moderate; Lymphocytes # (A) 0.9 k/uL (1.0-4.8); Lymphocytes % (A) 13 %; MCH 34.4 pg (25.0-35.0); MCHC 30.8 g/dL (31.0-37.0); MCV 111.4 fL (80.0-100.0); Macrocytosis Marked; Monocytes # (A) 0.6 k/uL (0-1.0); Monocytes % (A) 8 %; Neutrophils # (A) 5.5 k/uL (1.3-7.7); Neutrophils % (A) 75 %; Platelet Count 117 k/uL (150-450); RBC 3.22 m/uL (4.30-5.90); RDW 15.7 % (11.5-15.5); WBC 7.3 k/uL (3.8-10.6)
[2018-04-11 15:18] LABS: Calcium 8.4 mg/dL (8.4-10.2); Potassium 5.6 mmol/L (3.5-5.1)
[2018-04-11 15:37] LABS: Poikilocytosis (M) Present; Polychromasia Present
[2018-04-11 16:56] LABS: Glucose,Whole Blood 160 mg/dL (75-99)
--- NOTE | 2018-04-11 17:51 | P.PN ---
Subjective Progress Note Date: 04/11/18 Progress note being dictated for Dr. Paul. Interval history:80-year-old pleasant gentleman came in with compensative abnormal Lasix and his potassium is found to be 6.3. Patient is presently being treated with dextrose insulin, calcium gluconate, Kayexalate this time. Patient is on Aldactone for cirrhosis along with an JAVIER inhibitor for blood pressure and worsening renal function. Patient was seen 2 years ago and was admitted to my service at the time and was diagnosed with cirrhosis passably at the time. Etiologies of cirrhosis is unknown patient had had workup as an outpatient by gastroenterology. Patient and an outpatient MRCP which she did show cirrhosis and the possibility of habitus alert carcinoma cannot be ruled out as per the reading and this is being evaluated and followed up by gastroenterology as an outpatient. Patient was recently started on levofloxacin for upper respiratory infection patient has dry cough doesn't appear to have any bronchitis will not require Levaquin which will be discontinued. Patient does have abdominal distention will ascites and the fluid shift, his Lasix was recently discontinued as his ascites is not bad and getting better and was started on Aldactone. Patient's creatinine is around 2 which was around 1 last year. Patient will be started on gentle hydration, I do have concern of hepatorenal syndrome because of which nephrology will be consulted patient does have jaundice and direct bilirubinemia from cirrhosis. Gastroenterology will be consulted as well. His urine is darker because of jaundice. Patient was complaining of generalized fatigue Review of Systems REVIEW OF SYSTEMS: CONSTITUTIONAL: No fever, HEENT: No recent visual problems or hearing problems. Denied any sore throat. CARDIOVASCULAR: No chest pain, orthopnea, PND, no palpitations, no syncope. PULMONARY: No shortness of breath, no cough, no hemoptysis. GASTROINTESTINAL: No diarrhea, no nausea, no vomiting, no abdominal pain. Normoactive bowel sounds. NEUROLOGICAL: No headaches, no weakness, no numbness. HEMATOLOGICAL: Denies any bleeding or petechiae. GENITOURINARY: Denies any burning micturition, frequency, or urgency. MUSCULOSKELETAL/RHEUMATOLOGICAL: Denies any joint pain, swelling, or any muscle pain. ENDOCRINE: Denies any polyuria or polydipsia. The rest of the 14-point review of systems is negative. 04/11/2018 renal function and potassium improving. potassium 5.6, Kayexalate administered. Creatinine 1.66. Renal ultrasound reporting to 7.5 cm simple appearing left renal cyst with no hydronephrosis or nephrolithiasis bilaterally incidental finding of splenomegaly 16 cm, small ascites. Abdominal ultrasound on admission reporting indeterminate liver masses, cirrhosis, correlate for hepatocellular carcinoma, ascites, possible cholecystitis. GI consult in place with recommendations pending. Consuming 50% of diet, with no nausea vomiting or diarrhea. Nonproductive cough, reports seasonal ALLERGIES with sinus drainage. Afebrile. Denies chest pain, palpitations or shortness of breath. Evaluated by a nephrology with recommendations noted. Objective - Vital Signs Vital signs: Vital Signs Temp 97.6 F 04/11/18 16:00 Pulse 100 04/11/18 16:21 Resp 18 04/11/18 16:00 BP 122/56 04/11/18 16:00 Pulse Ox 96 04/11/18 16:00 Intake & Output 04/10/18 04/11/18 04/11/18 18:59 06:59 18:59 Intake Total 1065 240 Output Total 500 Balance -500 1065 240 Weight 97.522 kg 100.2 kg Intake: IV 85 Invasive Line 1 85 Intake, IV Titration 20 Amount Sodium Chloride 0.9% 1, 20 000 ml @ 75 mls/hr IV . [id number] [facility] Rx#:[id number] Oral 960 240 Output: Urine 500 Other: Voiding Method Toilet Toilet # Voids 1 2 # Bowel Movements 0 - Exam GENERAL: The patient is alert and oriented x3, not in any acute distress. Well developed, well nourished. Yellowish discoloration of skin HEENT: Pupils are round and equally reacting to light. EOMI. does have scleral icterus. No conjunctival pallor. Normocephalic, atraumatic. No pharyngeal erythema. No thyromegaly. CARDIOVASCULAR: S1 and S2 present. No murmurs, rubs, or gallops. PULMONARY: Chest is clear to auscultation, no wheezing or crackles. ABDOMEN: Distended nontender fluid shift present MUSCULOSKELETAL: No joint swelling or deformity. EXTREMITIES: No cyanosis, clubbing, or pedal edema. NEUROLOGICAL: Gross neurological examination did not reveal any focal deficits. SKIN: No rashes. - Labs CBC & Chem 7: 04/11/18 14:50 04/11/18 14:50 Labs: Abnormal Lab Results - Last 24 Hours (Table) 04/10/18 04/10/18 04/11/18 Range/Units 20:14 21:02 05:43 RBC 3.15 L (4.30-5.90) m/uL Hgb 10.8 L (13.0-17.5) gm/dL Hct 33.4 L (39.0-53.0) % MCV 106.0 H (80.0-100.0) fL MCHC (31.0-37.0) g/dL RDW (11.5-15.5) % Plt Count 112 L (150-450) k/uL Lymphocytes # (1.0-4.8) k/uL PT (9.0-12.0) sec INR (<1.2) Potassium 6.2 H* (3.5-5.1) mmol/L Chloride (98-107) mmol/L Carbon Dioxide (22-30) mmol/L BUN (9-20) mg/dL Creatinine (0.66-1.25) mg/dL Glucose (74-99) mg/dL POC Glucose (mg/dL) 129 H (75-99) mg/dL Total Bilirubin (0.2-1.3) mg/dL AST (17-59) U/L Alkaline Phosphatase (38-126) U/L Ammonia (<30) umol/L Albumin (3.5-5.0) g/dL 04/11/18 04/11/18 04/11/18 Range/Units 05:43 05:43 05:43 RBC (4.30-5.90) m/uL Hgb (13.0-17.5) gm/dL Hct (39.0-53.0) % MCV (80.0-100.0) fL MCHC (31.0-37.0) g/dL RDW (11.5-15.5) % Plt Count (150-450) k/uL Lymphocytes # (1.0-4.8) k/uL PT 14.1 H (9.0-12.0) sec INR 1.5 H (<1.2) Potassium 5.9 H (3.5-5.1) mmol/L Chloride 115 H (98-107) mmol/L Carbon Dioxide 16 L (22-30) mmol/L BUN 53 H (9-20) mg/dL Creatinine 1.99 H (0.66-1.25) mg/dL Glucose (74-99) mg/dL POC Glucose (mg/dL) (75-99) mg/dL Total Bilirubin 7.1 H (0.2-1.3) mg/dL AST 177 H (17-59) U/L Alkaline Phosphatase 174 H (38-126) U/L Ammonia 35 H (<30) umol/L Albumin 2.5 L (3.5-5.0) g/dL 04/11/18 04/11/18 04/11/18 Range/Units 14:50 14:50 16:55 RBC 3.22 L (4.30-5.90) m/uL Hgb 11.1 L (13.0-17.5) gm/dL Hct 35.9 L (39.0-53.0) % MCV 111.4 H D (80.0-100.0) fL MCHC 30.8 L (31.0-37.0) g/dL RDW 15.7 H (11.5-15.5) % Plt Count 117 L (150-450) k/uL Lymphocytes # 0.9 L (1.0-4.8) k/uL PT (9.0-12.0) sec INR (<1.2) Potassium 5.6 H (3.5-5.1) mmol/L Chloride 114 H (98-107) mmol/L Carbon Dioxide 10 L (22-30) mmol/L BUN 51 H (9-20) mg/dL Creatinine 1.88 H (0.66-1.25) mg/dL Glucose 121 H (74-99) mg/dL POC Glucose (mg/dL) 160 H (75-99) mg/dL Total Bilirubin (0.2-1.3) mg/dL AST (17-59) U/L Alkaline Phosphatase (38-126) U/L Ammonia (<30) umol/L Albumin (3.5-5.0) g/dL Assessment and Plan Assessment: -Hyperkalemia secondary to renal failure along with JAVIER inhibitor and Aldactone- discontinue -Generalized weakness secondary to hyperkalemia and renal failure. -Renal failure due to intravascular volume depletion prerenal azotemia in spite of ascites and volume load his intravascular volume is low and there is a concern of hepatorenal syndrome will gently hydrate him in spite of his ascites. -Hepatic cirrhosis: Etiology unclear patient has obstructive jaundice from cirrhosis. Patient did have history of esophageal varices and GI bleed in the past -Hypertension amlodipine and Coreg will be continued, JAVIER inhibitor will be discontinued -Type 2 diabetes mellitus: Patient was started on sliding scale insulin Elevated liver enzymes secondary to cirrhosis, mild elevation in AST along with direct hyperbilirubinemia -Abdominal ultrasound on admission reporting indeterminate liver masses, cirrhosis, correlate for hepatocellular carcinoma, ascites, possible cholecystitis. - Plan: Continue current medication regime , sodium bicarb, monitoring and symptomatic treatment. Diuretics/IV fluid hydration as per nephrology.Maintain low potassium diet. Close monitoring of renal function, electrolytes with repeat labs ordered for this evening and a.m. GI consult in place with recommendations pending. The impression and plan of care has been dictated as directed. : I performed a history and examination of this patient, discussed the same with the dictator. I agree with the dictator's note ,documented as a scribe. Any additional findings or plans will be noted.
[2018-04-11 18:31] LABS: Hemoglobin A1C 6.6 % (4.0-6.0)
--- NOTE | 2018-04-11 19:55 | P.CONS ---
History of Present Illness - Reason for Consult Consult date: 04/11/18 jaundice Requesting physician: Reji Paul - Chief Complaint jaundice elevated potassium - History of Present Illness 72 y/o male patient of Dr. Donavon Black with a PMH non-alcoholic cirrhosis, esophageal varices, Sage's esophagus, portal hypertension, and ascites previously maintainted on Aldactone. Presents with reports of abnormal outpatient potassium level as well as new onset of jaundice 2-3 days. Denies abdominal pain but reports increased abdominal girth. He has a history of known ascites but never underwent paracentesis. Recently treated outpatient for URI with Z-pack. Chemistries WBC 5.4-7.3. HGB 11.1-11.3. MCV 106-111. INR 1.5. Platelet 112-120. K+ 6.3. Na 141. BUN 53. Creatinine 2.0. TB 7.3. AST 194. ALT 67. AP 188. LFTs in February 2018 WNL. Hepatitis screen negative. Liver MRI 03/2018: cirrhosis. Cholelithiasis. Foci within the liver possible degenerative nodules. HCC not excluded. Ascites. US abdomen 04/10/18: indeterminate liver masses inferior right lobe largest 3.7 x 4.9 x 4.4 cm, cirrhosis, ascites. Gallbladder debris. CBD 0.5 cm. He is scheduled for open MRI liver w/ contrast 04/20/18. EGD December 2016; grade 2/3 DEV without active bleeding. Severe portal hypertensive gastropathy. Review of Systems Constitutional: Denies fever, chills, sweats, weight gain, or loss. HEENT: History of chronic migraines, denies blurred vision or loss, earaches, drainage, tinnitus, oral mucosal lesions, dysphagia, or odynophagia. CARDIAC: Negative for chest pain, admitted with episode of PAF. RESPIRATORY: Negative for shortness of breath, hemoptysis, cough, or sputum production. GI: See HPI for pertinent findings. : Negative for hematuria, urgency, frequency, polyuria, or dysuria. MUSCULOSKELETAL: Negative for muscle aches, swelling, arthritis, and arthralgias. NEUROLOGIC: Negative for stroke or TIA. ENDOCRINE: Negative for thyroid problems. SKIN: Negative for rash or itching. PSYCHIATRIC: Negative history for depression and anxiety Past Medical History Past Medical History: Diabetes Mellitus, GERD/Reflux, GI Bleed, Hypertension, Pneumonia Additional Past Medical History / Comment(s): Renal cysts, hepatic cirrhosis, diverticulosis, hiatal hernia(per past egd summary -segment of barretts esophagus),anemia-required blood transfusions History of Any Multi-Drug Resistant Organisms: None Reported Past Surgical History: No Surgical Hx Reported Additional Past Surgical History / Comment(s): kosta cataracts, egd/ colonoscopy, wisdom teeth extracted Past Anesthesia/Blood Transfusion Reactions: No Reported Reaction Additional Past Anesthesia/Blood Transfusion Reaction / Comm: past blood transfusions-no reaction Smoking Status: Never smoker - Past Family History Mother Family Medical History: No Reported History Additional Family Medical History / Comment(s): Pt adopted, but knows mother. Healthy at 95y/o Father Family Medical History: Liver Disease, Myocardial Infarction (VT) Additional Family Medical History / Comment(s): , heavy drinker Medications and Allergies Home Medications Medication Instructions Recorded Confirmed Type Cyanocobalamin (Vitamin B-12) 1,000 mcg PO DAILY 11/23/16 04/10/18 History [Vitamin B-12] Ferrous Sulfate [Feosol] 325 mg PO DAILY 11/23/16 04/10/18 History Amlodipine Besylate/Valsartan 0.5 tab PO DAILY 01/04/17 04/10/18 History [Exforge 5-320 mg Tablet] Promethazine HCl/Codeine 5 - 10 ml PO Q6HR PRN 01/04/17 04/10/18 History [Prometh-Codein 6.25-10 mg/5 ml] Fluticasone/Vilanterol [Breo 1 puff INHALATION RT-DAILY 04/10/18 04/10/18 History Ellipta 100-25 Mcg Inhaler] Levofloxacin [Levaquin] 500 mg PO DAILY 04/10/18 04/10/18 History Meclizine [Antivert] 25 mg PO BID 04/10/18 04/10/18 History Omeprazole [PriLOSEC] 20 mg PO DAILY 04/10/18 04/10/18 History Spironolactone 25 mg PO DAILY 04/10/18 04/10/18 History Allergies Allergy/AdvReac Type Severity Reaction Status Date / Time No Known Allergies Allergy Verified 04/10/18 15:03 Physical Exam Vitals: Vital Signs Temp Pulse Pulse Resp BP Pulse Ox 04/11/18 16:21 100 04/11/18 16:12 100 04/11/18 16:00 97.6 F 96 18 122/56 96 04/11/18 12:00 97.8 F 98 18 138/74 95 04/11/18 11:58 88 04/11/18 11:39 80 04/11/18 08:00 105 H 18 135/59 97 04/11/18 07:37 89 04/11/18 07:27 88 04/11/18 04:00 97.1 F L 100 17 150/70 95 04/11/18 00:00 101 H 16 135/57 96 04/10/18 23:31 99 04/10/18 23:21 95 04/10/18 20:00 97.7 F 95 17 145/66 94 L Intake and Output 04/11/18 04/11/18 04/11/18 06:59 14:59 22:59 Intake Total 75 240 0 Balance 75 240 0 Intake: IV 75 Invasive Line 1 75 Oral 240 0 Other: Voiding Method Toilet Toilet Toilet # Voids 1 2 # Bowel Movements 0 Weight 100.2 kg - Constitutional General appearance: average body habitus, no acute distress - EENT Eyes: scleral icterus, normal appearance ENT: normal oropharynx Ears: bilateral: normal - Neck Neck: normal ROM - Respiratory Respiratory: bilateral: CTA - Cardiovascular Rhythm: regular Heart sounds: normal: S1, S2 - Gastrointestinal moderate ascites no peritoneal signs General gastrointestinal: distended, normal bowel sounds, soft - Integumentary +2 BLE edema Integumentary: normal turgor - Neurologic Neurologic: CNII-XII intact - Psychiatric Psychiatric: A&O x's 3 Results CBC & Chem 7: 04/11/18 14:50 04/12/18 06:12 Labs: Abnormal Lab Results - Last 24 Hours (Table) 04/10/18 04/10/18 04/11/18 Range/Units 20:14 21:02 05:43 RBC 3.15 L (4.30-5.90) m/uL Hgb 10.8 L (13.0-17.5) gm/dL Hct 33.4 L (39.0-53.0) % MCV 106.0 H (80.0-100.0) fL MCHC (31.0-37.0) g/dL RDW (11.5-15.5) % Plt Count 112 L (150-450) k/uL Lymphocytes # (1.0-4.8) k/uL PT (9.0-12.0) sec INR (<1.2) Potassium 6.2 H* (3.5-5.1) mmol/L Chloride (98-107) mmol/L Carbon Dioxide (22-30) mmol/L BUN (9-20) mg/dL Creatinine (0.66-1.25) mg/dL Glucose (74-99) mg/dL POC Glucose (mg/dL) 129 H (75-99) mg/dL Hemoglobin A1c (4.0-6.0) % Total Bilirubin (0.2-1.3) mg/dL AST (17-59) U/L Alkaline Phosphatase (38-126) U/L Ammonia (<30) umol/L Albumin (3.5-5.0) g/dL 04/11/18 04/11/18 04/11/18 Range/Units 05:43 05:43 05:43 RBC (4.30-5.90) m/uL Hgb (13.0-17.5) gm/dL Hct (39.0-53.0) % MCV (80.0-100.0) fL MCHC (31.0-37.0) g/dL RDW (11.5-15.5) % Plt Count (150-450) k/uL Lymphocytes # (1.0-4.8) k/uL PT 14.1 H (9.0-12.0) sec INR 1.5 H (<1.2) Potassium 5.9 H (3.5-5.1) mmol/L Chloride 115 H (98-107) mmol/L Carbon Dioxide 16 L (22-30) mmol/L BUN 53 H (9-20) mg/dL Creatinine 1.99 H (0.66-1.25) mg/dL Glucose (74-99) mg/dL POC Glucose (mg/dL) (75-99) mg/dL Hemoglobin A1c (4.0-6.0) % Total Bilirubin 7.1 H (0.2-1.3) mg/dL AST 177 H (17-59) U/L Alkaline Phosphatase 174 H (38-126) U/L Ammonia 35 H (<30) umol/L Albumin 2.5 L (3.5-5.0) g/dL 04/11/18 04/11/18 04/11/18 Range/Units 05:43 14:50 14:50 RBC 3.22 L (4.30-5.90) m/uL Hgb 11.1 L (13.0-17.5) gm/dL Hct 35.9 L (39.0-53.0) % MCV 111.4 H D (80.0-100.0) fL MCHC 30.8 L (31.0-37.0) g/dL RDW 15.7 H (11.5-15.5) % Plt Count 117 L (150-450) k/uL Lymphocytes # 0.9 L (1.0-4.8) k/uL PT (9.0-12.0) sec INR (<1.2) Potassium 5.6 H (3.5-5.1) mmol/L Chloride 114 H (98-107) mmol/L Carbon Dioxide 10 L (22-30) mmol/L BUN 51 H (9-20) mg/dL Creatinine 1.88 H (0.66-1.25) mg/dL Glucose 121 H (74-99) mg/dL POC Glucose (mg/dL) (75-99) mg/dL Hemoglobin A1c 6.6 H (4.0-6.0) % Total Bilirubin (0.2-1.3) mg/dL AST (17-59) U/L Alkaline Phosphatase (38-126) U/L Ammonia (<30) umol/L Albumin (3.5-5.0) g/dL 04/11/18 Range/Units 16:55 RBC (4.30-5.90) m/uL Hgb (13.0-17.5) gm/dL Hct (39.0-53.0) % MCV (80.0-100.0) fL MCHC (31.0-37.0) g/dL RDW (11.5-15.5) % Plt Count (150-450) k/uL Lymphocytes # (1.0-4.8) k/uL PT (9.0-12.0) sec INR (<1.2) Potassium (3.5-5.1) mmol/L Chloride (98-107) mmol/L Carbon Dioxide (22-30) mmol/L BUN (9-20) mg/dL Creatinine (0.66-1.25) mg/dL Glucose (74-99) mg/dL POC Glucose (mg/dL) 160 H (75-99) mg/dL Hemoglobin A1c (4.0-6.0) % Total Bilirubin (0.2-1.3) mg/dL AST (17-59) U/L Alkaline Phosphatase (38-126) U/L Ammonia (<30) umol/L Albumin (3.5-5.0) g/dL US - abdomen: report reviewed (Dr. Chaudhari) Assessment and Plan (1) Jaundice Narrative/Plan: 72 y/o male non-alcoholic cirrhosis admitted with hyperkalemia acute kidney injury and new onset of jaundice elevated liver enzymes possible cholestatic. Abdominal imaging reported possible hepatic masses inferior right lobe underlying neoplasm hepatocellular carcinoma cannot be excluded. Other differential to consider is decompensated liver disease without obstruction. Previous liver MRI and current ultrasound abdominal imaging report no evidence of biliary tree abnormalities. Current Visit: Yes Status: Acute Code(s): R17 - UNSPECIFIED JAUNDICE SNOMED Code(s): 57973028 (2) Abnormal MRI, liver Current Visit: Yes Status: Acute Code(s): R93.2 - ABNORMAL FINDINGS ON DX IMAGING OF LIVER AND BILIARY TRACT SNOMED Code(s): 537779042 (3) Liver cirrhosis Current Visit: Yes Status: Acute Code(s): K74.60 - UNSPECIFIED CIRRHOSIS OF LIVER SNOMED Code(s): 28428712 (4) Portal hypertension Current Visit: Yes Status: Acute Code(s): K76.6 - PORTAL HYPERTENSION SNOMED Code(s): 22903443 (5) Ascites of liver Current Visit: Yes Status: Acute Code(s): R18.8 - OTHER ASCITES SNOMED Code(s): 104303807 (6) Acute kidney injury Current Visit: Yes Status: Acute Code(s): N17.9 - ACUTE KIDNEY FAILURE, UNSPECIFIED SNOMED Code(s): 61645839 (7) Hyperkalemia Current Visit: Yes Status: Acute Code(s): E87.5 - HYPERKALEMIA SNOMED Code (s): 20326568 Plan: 1. Nephrology on consult will defer to their service for diuretic management. 2. Recommend diagnostic paracentesis with serology. 3. AFP, CEA. Daily CMP, PT/INR. 4. Outpatient MRI liver scheduled 04/20/18. 5. Low salt diet. 6. Protonix 40 mg BID. The turbine inspector has discussed the risks, benefits and alternative therapies for the above-mentioned procedure and for both sedation/analgesia as well as necessary blood product administration, if indicated, as they pertain to this patient. The patient has indicated understanding and acceptance of the risks and procedures discussed. Thank you for this kind referral and the opportunity to participate in the care of your patient. This consultation was discussed with Dr. Chaudhari. The impression and plan of care have been directed as dictated.
[2018-04-11] MEDS ORDERED: ALBUTEROL NEBULIZED 2.5 MG/3 ML INHALATION PRN (20:43)
[2018-04-11] MEDS: LORATADINE 10 MG TAB PO SCH (21:03)
[2018-04-11] MEDS: PANTOPRAZOLE 40 MG/10 ML VIAL IVP SCH (21:03)
[2018-04-11] MEDS: SODIUM BICARBONATE TAB 650 MG TAB PO SCH (21:04)
[2018-04-11 21:12] LABS: Glucose,Whole Blood 129 mg/dL (75-99)
[2018-04-11] MEDS: INSULIN ASPART 100 UNIT/ML 1 ML 10 ML VIAL SQ SCH (22:11)
[2018-04-11] MEDS ORDERED: ALPRAZolam 0.25 MG TAB PO PRN (23:05)
[2018-04-12 06:14] LABS: Glucose,Whole Blood 85 mg/dL (75-99)
[2018-04-12] MEDS: INSULIN ASPART 100 UNIT/ML 1 ML 10 ML VIAL SQ SCH ×4 (06:37→21:41)
[2018-04-12 06:52] LABS: INR 1.6 (<1.2)
[2018-04-12 06:53] LABS: Albumin 2.4 g/dL (3.5-5.0); Calcium 8.4 mg/dL (8.4-10.2); Potassium 5.4 mmol/L (3.5-5.1); Total Bilirubin 6.5 mg/dL (0.2-1.3); Total Protein 6.8 g/dL (6.3-8.2)
[2018-04-12] MEDS: ALBUTEROL NEBULIZED 2.5 MG/3 ML INHALATION SCH ×4 (07:28→20:04)
[2018-04-12] MEDS: SYMBICORT 80-4.5 MCG INHALER INHALATION SCH ×3 (07:28→20:12)
[2018-04-12] MEDS: SODIUM BICARBONATE TAB 650 MG TAB PO SCH ×2 (08:18→21:39)
[2018-04-12] MEDS: MECLIZINE 25 MG TAB PO SCH ×2 (08:18→21:39)
[2018-04-12] MEDS: LORATADINE 10 MG TAB PO SCH (08:19)
[2018-04-12] MEDS: PANTOPRAZOLE 40 MG/10 ML VIAL IVP SCH ×2 (08:19→21:39)
[2018-04-12] MEDS: amLODIPine 5 MG TAB PO SCH (08:19)
--- NOTE | 2018-04-12 08:29 | P.PN ---
Subjective Progress Note Date: 04/12/18 Principal diagnosis: jaundice Non alcoholic liver cirrhosis. Abdominal imaging possible hepatic masses. AFF > 1000,000. CEA 88. TB 6.5 today. Paracentesis ordered. Creatinine increased to 2.2. Objective - Vital Signs Vital signs: Vital Signs Temp 98.5 F 04/12/18 04:00 Pulse 100 04/12/18 07:37 Resp 17 04/12/18 04:00 BP 112/53 04/12/18 04:00 Pulse Ox 92 L 04/12/18 04:00 Intake & Output 04/11/18 04/12/18 04/12/18 18:59 06:59 18:59 Intake Total 240 820 0 Balance 240 820 0 Weight 102 kg Intake: IV 20 Invasive Line 1 20 Intake, IV Titration 800 Amount Sodium Chloride 0.9% 1, 800 000 ml @ 75 mls/hr IV . [id number] MEGHANN Rx#:[id number] Oral 240 0 Other: Voiding Method Toilet Toilet # Voids 2 1 # Bowel Movements 0 - Constitutional General appearance: Present: average body habitus - EENT Eyes: Present: normal appearance Ears: bilateral: normal - Neck Neck: Present: normal ROM - Respiratory Respiratory: bilateral: CTA - Cardiovascular Rhythm: regular Heart sounds: normal: S1, S2 - Gastrointestinal Gastrointestinal Comment(s): moderate ascites General gastrointestinal: Present: distended, soft - Integumentary Integumentary Comment(s): +1/2 BLE edema Integumentary: Present: normal turgor - Neurologic Neurologic: Present: CNII-XII intact - Psychiatric Psychiatric: Present: A&O x's 3 - Labs CBC & Chem 7: 04/11/18 14:50 04/12/18 06:12 Labs: Abnormal Lab Results - Last 24 Hours (Table) 04/11/18 04/11/18 04/11/18 Range/Units 05:43 14:50 14:50 RBC 3.22 L (4.30-5.90) m/uL Hgb 11.1 L (13.0-17.5) gm/dL Hct 35.9 L (39.0-53.0) % MCV 111.4 H D (80.0-100.0) fL MCHC 30.8 L (31.0-37.0) g/dL RDW 15.7 H (11.5-15.5) % Plt Count 117 L (150-450) k/uL Lymphocytes # 0.9 L (1.0-4.8) k/uL PT (9.0-12.0) sec INR (<1.2) Potassium 5.6 H (3.5-5.1) mmol/L Chloride 114 H (98-107) mmol/L Carbon Dioxide 10 L (22-30) mmol/L BUN 51 H (9-20) mg/dL Creatinine 1.88 H (0.66-1.25) mg/dL Glucose 121 H (74-99) mg/dL POC Glucose (mg/dL) (75-99) mg/dL Hemoglobin A1c 6.6 H (4.0-6.0) % Total Bilirubin (0.2-1.3) mg/dL AST (17-59) U/L Alkaline Phosphatase (38-126) U/L Albumin (3.5-5.0) g/dL Tumor Marker AFP (0.0-7.9) ng/mL Carcinoembryonic Ag (0.0-4.9) ng/mL 04/11/18 04/11/18 04/11/18 Range/Units 14:50 14:50 16:55 RBC (4.30-5.90) m/uL Hgb (13.0-17.5) gm/dL Hct (39.0-53.0) % MCV (80.0-100.0) fL MCHC (31.0-37.0) g/dL RDW (11.5-15.5) % Plt Count (150-450) k/uL Lymphocytes # (1.0-4.8) k/uL PT (9.0-12.0) sec INR (<1.2) Potassium (3.5-5.1) mmol/L Chloride (98-107) mmol/L Carbon Dioxide (22-30) mmol/L BUN (9-20) mg/dL Creatinine (0.66-1.25) mg/dL Glucose (74-99) mg/dL POC Glucose (mg/dL) 160 H (75-99) mg/dL Hemoglobin A1c (4.0-6.0) % Total Bilirubin (0.2-1.3) mg/dL AST (17-59) U/L Alkaline Phosphatase (38-126) U/L Albumin (3.5-5.0) g/dL Tumor Marker AFP >119721.0 H (0.0-7.9) ng/mL Carcinoembryonic Ag 88.6 H (0.0-4.9) ng/mL 04/11/18 04/12/18 04/12/18 Range/Units 21:11 06:12 06:12 RBC (4.30-5.90) m/uL Hgb (13.0-17.5) gm/dL Hct (39.0-53.0) % MCV (80.0-100.0) fL MCHC (31.0-37.0) g/dL RDW (11.5-15.5) % Plt Count (150-450) k/uL Lymphocytes # (1.0-4.8) k/uL PT 15.0 H (9.0-12.0) sec INR 1.6 H (<1.2) Potassium 5.4 H (3.5-5.1) mmol/L Chloride 112 H (98-107) mmol/L Carbon Dioxide 14 L (22-30) mmol/L BUN 55 H (9-20) mg/dL Creatinine 2.27 H (0.66-1.25) mg/dL Glucose (74-99) mg/dL POC Glucose (mg/dL) 129 H (75-99) mg/dL Hemoglobin A1c (4.0-6.0) % Total Bilirubin 6.5 H (0.2-1.3) mg/dL AST 173 H (17-59) U/L Alkaline Phosphatase 165 H (38-126) U/L Albumin 2.4 L (3.5-5.0) g/dL Tumor Marker AFP (0.0-7.9) ng/mL Carcinoembryonic Ag (0.0-4.9) ng/mL Assessment and Plan (1) Jaundice Narrative/Plan: 72 y/o male non-alcoholic cirrhosis admitted with hyperkalemia acute kidney injury and new onset of jaundice elevated liver enzymes possible cholestatic. Abdominal imaging reported possible hepatic masses inferior right lobe underlying neoplasm hepatocellular carcinoma presumed secondary to grossly elevated AFP. Other differential to consider is decompensated liver disease without obstruction. Previous liver MRI and current ultrasound abdominal imaging report no evidence of biliary tree abnormalities. Current Visit: Yes Status: Acute Code(s): R17 - UNSPECIFIED JAUNDICE SNOMED Code(s): 86405925 (2) Elevated AFP Current Visit: Yes Status: Acute Code(s): R77.2 - ABNORMALITY OF ALPHAFETOPROTEIN SNOMED Code(s): 822956939 (3) Abnormal MRI, liver Current Visit: Yes Status: Acute Code(s): R93.2 - ABNORMAL FINDINGS ON DX IMAGING OF LIVER AND BILIARY TRACT SNOMED Code(s): 583051728 (4) Liver cirrhosis Current Visit: Yes Status: Acute Code(s): K74.60 - UNSPECIFIED CIRRHOSIS OF LIVER SNOMED Code(s): 91303382 (5) Portal hypertension Current Visit: Yes Status: Acute Code(s): K76.6 - PORTAL HYPERTENSION SNOMED Code(s): 03595201 (6) Ascites of liver Current Visit: Yes Status: Acute Code(s): R18.8 - OTHER ASCITES SNOMED Code(s): 172496800 (7) Acute kidney injury Current Visit: Yes Status: Acute Code(s): N17.9 - ACUTE KIDNEY FAILURE, UNSPECIFIED SNOMED Code(s): 14815195 (8) Hyperkalemia Current Visit: Yes Status: Acute Code(s): E87.5 - HYPERKALEMIA SNOMED Code (s): 03629383 (9) Elevated CEA Current Visit: Yes Status: Acute Code(s): R97.0 - ELEVATED CARCINOEMBRYONIC ANTIGEN [CEA] SNOMED Code(s): 909044432 Plan: 1. Paracentesis today most likely will need albumin pre and post procedure. 2. Low salt diet. Daily CMP/INR. 3. Recommend oncology evaluation. 4. Supportive measures. Assessment and plan of care discussed with Dr. Chaudhari
[2018-04-12] MEDS ORDERED: FAMOTIDINE 20 MG TAB PO SCH (09:00)
[2018-04-12] MEDS: ALBUMIN HUMAN 25% 50 ML in EMPTY BAG 1 BAG IVPB SCH ×4 (09:06→17:25)
[2018-04-12] MEDS: DEXTROSE 5% IN WATER 1,000 ML with SODIUM BICARB (1 MEQ/ML) 150 ML IV SCH (10:38)
--- NOTE | 2018-04-12 10:56 | PN ---
PROGRESS NOTE Patient is seen for followup for acute kidney injury. His alpha fetoprotein came back significantly elevated and patient is scheduled for a diagnostic paracentesis today. He states he has had good urine output. Serum creatinine has gone up from 1.8 to 2.27. Blood pressure has not been significantly low, although this morning systolic blood pressure was 112 mmHg. Patient remains quite acidotic as well. His CO2 had gone down to 10 yesterday on repeat labs. Potassium has improved, although still staying elevated, currently at 5.4. PHYSICAL EXAMINATION: This morning, blood pressure is 112/53, heart rate 97 per minute, patient is afebrile. Examination of the heart, S1, S2. Examination of the lungs, decreased breath sounds at the bases. No crackles or wheezing. Abdomen is soft, nontender. Ascites is noted. Examination of the lower extremities shows trace edema bilaterally. [employer]ACH[employer] exam is grossly intact. Patient is alert and oriented x3. He is moving all 4 extremities. LABS: Show sodium 137, potassium 5.4, chloride 112, CO2 is 14, BUN 55, serum creatinine 2.27, and alpha-fetoprotein more than 100,000, hemoglobin 11.1 g/dL. ASSESSMENT: 1. Acute kidney injury, acute tubular necrosis, currently nonoliguric. Good urine output. No nephrotoxic agents on board. I will start IV fluids, particularly IV bicarb given his continued acidosis. Agree with albumin with the paracentesis. 2. Hyperkalemia associated with acute kidney injury, currently slightly improved, continue off of angiotensin receptor blockers. Acidosis is also improved and the bicarb drip will help with the hyperkalemia. 3. Metabolic acidosis secondary to gastrointestinal fluid loss with ongoing diarrhea as well as renal failure. Patient is maintained on oral side sodium bicarb. He still remains quite acidotic. I will add IV sodium bicarb. 4. Underlying liver cirrhosis with significantly elevated alpha fetoprotein, suggestive of underlying malignancy, scheduled for diagnostic paracentesis today. PLAN: Start IV bicarb. Maintain low-potassium diet. Agree with albumin. Repeat labs in a.m.. MMODL / IJN: [id number] /
[2018-04-12 12:39] LABS: Glucose,Whole Blood 86 mg/dL (75-99)
[2018-04-12 12:53] VITALS: BMI 31.4
--- NOTE | 2018-04-12 14:17 | US ---
EXAMINATION TYPE: US paracentesis abd w/image DATE OF EXAM: 04/12/2018 COMPARISON: NONE HISTORY: Ascites. PROCEDURE: Maximal barrier technique was utilized. The skin overlying a suitable pocket of fluid was localized with ultrasound and the overlying skin was prepped and draped. Ultrasound was utilized with sterile technique. Lidocaine was used for local anesthesia and a skin lawrence made with a scalpel. Catheter was advanced under direct ultrasound guidance into a suitable pocket of fluid and approximately 2.1 liter s of serous fluid were removed. Catheter was withdrawn and hemostasis achieved. There is no immedia te complication; the patient is discharged in stable condition. IMPRESSION: STATUS POST ULTRASOUND GUIDED PARACENTESIS FOR PALLIATION OF ASCITES. THIS PROCEDURE WA S PERFORMED BY THE UNDERSIGNED. Specimen obtained for laboratory analysis.
[2018-04-12] MEDS ORDERED: ALBUMIN HUMAN 25% 25 ML in EMPTY BAG 1 BAG IVPB SCH (14:30)
[2018-04-12 15:10] LABS: Appearance,BF Clear; Color,BF Yellow; Nucleated Cells, Body Fluid 170 /uL; RBC, Body Fluid 105 /uL
[2018-04-12 15:12] LABS: Mononuclear WBC,Body Fluid 95 %; Polynuclear WBC,Body Fluid 5 %; Total Cells Counted,Body Fluid 100
--- NOTE | 2018-04-12 16:14 | P.PN ---
Subjective Progress Note Date: 04/12/18 Progress note being dictated for Dr. Munoz. Interval history:80-year-old pleasant gentleman came in with compensative abnormal Lasix and his potassium is found to be 6.3. Patient is presently being treated with dextrose insulin, calcium gluconate, Kayexalate this time. Patient is on Aldactone for cirrhosis along with an JAVIER inhibitor for blood pressure and worsening renal function. Patient was seen 2 years ago and was admitted to my service at the time and was diagnosed with cirrhosis passably at the time. Etiologies of cirrhosis is unknown patient had had workup as an outpatient by gastroenterology. Patient and an outpatient MRCP which she did show cirrhosis and the possibility of habitus alert carcinoma cannot be ruled out as per the reading and this is being evaluated and followed up by gastroenterology as an outpatient. Patient was recently started on levofloxacin for upper respiratory infection patient has dry cough doesn't appear to have any bronchitis will not require Levaquin which will be discontinued. Patient does have abdominal distention will ascites and the fluid shift, his Lasix was recently discontinued as his ascites is not bad and getting better and was started on Aldactone. Patient's creatinine is around 2 which was around 1 last year. Patient will be started on gentle hydration, I do have concern of hepatorenal syndrome because of which nephrology will be consulted patient does have jaundice and direct bilirubinemia from cirrhosis. Gastroenterology will be consulted as well. His urine is darker because of jaundice. Patient was complaining of generalized fatigue Review of Systems REVIEW OF SYSTEMS: CONSTITUTIONAL: No fever, HEENT: No recent visual problems or hearing problems. Denied any sore throat. CARDIOVASCULAR: No chest pain, orthopnea, PND, no palpitations, no syncope. PULMONARY: No shortness of breath, no cough, no hemoptysis. GASTROINTESTINAL: No diarrhea, no nausea, no vomiting, no abdominal pain. Normoactive bowel sounds. NEUROLOGICAL: No headaches, no weakness, no numbness. HEMATOLOGICAL: Denies any bleeding or petechiae. GENITOURINARY: Denies any burning micturition, frequency, or urgency. MUSCULOSKELETAL/RHEUMATOLOGICAL: Denies any joint pain, swelling, or any muscle pain. ENDOCRINE: Denies any polyuria or polydipsia. The rest of the 14-point review of systems is negative. 04/11/2018 renal function and potassium improving. potassium 5.6, Kayexalate administered. Creatinine 1.66. Renal ultrasound reporting to 7.5 cm simple appearing left renal cyst with no hydronephrosis or nephrolithiasis bilaterally incidental finding of splenomegaly 16 cm, small ascites. Abdominal ultrasound on admission reporting indeterminate liver masses, cirrhosis, correlate for hepatocellular carcinoma, ascites, possible cholecystitis. GI consult in place with recommendations pending. Consuming 50% of diet, with no nausea vomiting or diarrhea. Nonproductive cough, reports seasonal ALLERGIES with sinus drainage. Afebrile. Denies chest pain, palpitations or shortness of breath. Evaluated by a nephrology with recommendations noted. 04/12/2018 scheduled for diagnostic/therapeutic paracentesis today, INR 1.6. Worsening renal function, creatinine 2.2. Total bili down to 6.5, LFTs minimally improved. AFP greater than 399105. CEA 88. Acidotic, CO2 14, on sodium bicarb. Objective - Vital Signs Vital signs: Vital Signs Temp 98.5 F 04/12/18 04:00 Pulse 100 04/12/18 07:37 Resp 17 04/12/18 04:00 BP 112/53 04/12/18 04:00 Pulse Ox 92 L 04/12/18 04:00 Intake & Output 04/11/18 04/12/18 04/12/18 18:59 06:59 18:59 Intake Total 240 820 0 Balance 240 820 0 Weight 102 kg Intake: IV 20 Invasive Line 1 20 Intake, IV Titration 800 Amount Sodium Chloride 0.9% 1, 800 000 ml @ 75 mls/hr IV . [id number] [facility] Rx#:[id number] Oral 240 0 Other: Voiding Method Toilet Toilet # Voids 2 1 # Bowel Movements 0 - Exam GENERAL: The patient is alert and oriented x3, not in any acute distress. Well developed, well nourished. Jaundiced HEENT: Pupils are round and equally reacting to light. EOMI. does have scleral icterus. No conjunctival pallor. Normocephalic, atraumatic. CARDIOVASCULAR: S1 and S2 present. No murmurs, rubs, or gallops. PULMONARY: Chest is clear to auscultation, no wheezing or crackles. ABDOMEN: Distended nontender, positive ascites MUSCULOSKELETAL: No joint swelling or deformity. EXTREMITIES: No cyanosis, clubbing, mild pedal edema. NEUROLOGICAL: Gross neurological examination did not reveal any focal deficits. SKIN: No rashes. - Labs CBC & Chem 7: 04/11/18 14:50 04/12/18 06:12 Labs: Abnormal Lab Results - Last 24 Hours (Table) 04/11/18 04/11/18 04/11/18 Range/Units 05:43 14:50 14:50 RBC 3.22 L (4.30-5.90) m/uL Hgb 11.1 L (13.0-17.5) gm/dL Hct 35.9 L (39.0-53.0) % MCV 111.4 H D (80.0-100.0) fL MCHC 30.8 L (31.0-37.0) g/dL RDW 15.7 H (11.5-15.5) % Plt Count 117 L (150-450) k/uL Lymphocytes # 0.9 L (1.0-4.8) k/uL PT (9.0-12.0) sec INR (<1.2) Potassium 5.6 H (3.5-5.1) mmol/L Chloride 114 H (98-107) mmol/L Carbon Dioxide 10 L (22-30) mmol/L BUN 51 H (9-20) mg/dL Creatinine 1.88 H (0.66-1.25) mg/dL Glucose 121 H (74-99) mg/dL POC Glucose (mg/dL) (75-99) mg/dL Hemoglobin A1c 6.6 H (4.0-6.0) % Total Bilirubin (0.2-1.3) mg/dL AST (17-59) U/L Alkaline Phosphatase (38-126) U/L Albumin (3.5-5.0) g/dL Tumor Marker AFP (0.0-7.9) ng/mL Carcinoembryonic Ag (0.0-4.9) ng/mL 04/11/18 04/11/18 04/11/18 Range/Units 14:50 14:50 16:55 RBC (4.30-5.90) m/uL Hgb (13.0-17.5) gm/dL Hct (39.0-53.0) % MCV (80.0-100.0) fL MCHC (31.0-37.0) g/dL RDW (11.5-15.5) % Plt Count (150-450) k/uL Lymphocytes # (1.0-4.8) k/uL PT (9.0-12.0) sec INR (<1.2) Potassium (3.5-5.1) mmol/L Chloride (98-107) mmol/L Carbon Dioxide (22-30) mmol/L BUN (9-20) mg/dL Creatinine (0.66-1.25) mg/dL Glucose (74-99) mg/dL POC Glucose (mg/dL) 160 H (75-99) mg/dL Hemoglobin A1c (4.0-6.0) % Total Bilirubin (0.2-1.3) mg/dL AST (17-59) U/L Alkaline Phosphatase (38-126) U/L Albumin (3.5-5.0) g/dL Tumor Marker AFP >237031.0 H (0.0-7.9) ng/mL Carcinoembryonic Ag 88.6 H (0.0-4.9) ng/mL 04/11/18 04/12/18 04/12/18 Range/Units 21:11 06:12 06:12 RBC (4.30-5.90) m/uL Hgb (13.0-17.5) gm/dL Hct (39.0-53.0) % MCV (80.0-100.0) fL MCHC (31.0-37.0) g/dL RDW (11.5-15.5) % Plt Count (150-450) k/uL Lymphocytes # (1.0-4.8) k/uL PT 15.0 H (9.0-12.0) sec INR 1.6 H (<1.2) Potassium 5.4 H (3.5-5.1) mmol/L Chloride 112 H (98-107) mmol/L Carbon Dioxide 14 L (22-30) mmol/L BUN 55 H (9-20) mg/dL Creatinine 2.27 H (0.66-1.25) mg/dL Glucose (74-99) mg/dL POC Glucose (mg/dL) 129 H (75-99) mg/dL Hemoglobin A1c (4.0-6.0) % Total Bilirubin 6.5 H (0.2-1.3) mg/dL AST 173 H (17-59) U/L Alkaline Phosphatase 165 H (38-126) U/L Albumin 2.4 L (3.5-5.0) g/dL Tumor Marker AFP (0.0-7.9) ng/mL Carcinoembryonic Ag (0.0-4.9) ng/mL Assessment and Plan Assessment: -Hyperkalemia secondary to renal failure -Generalized weakness secondary to hyperkalemia and renal failure. -Renal failure due to intravascular volume depletion prerenal azotemia , possible hepatorenal syndrome -Hepatic cirrhosis: Etiology unclear patient has obstructive jaundice from cirrhosis. Patient did have history of esophageal varices and GI bleed in the past -Hypertension -Type 2 diabetes mellitus Elevated liver enzymes secondary to cirrhosis, mild elevation in AST along with hyperbilirubinemia -Abdominal ultrasound on admission reporting indeterminate liver masses, cirrhosis, correlate for hepatocellular carcinoma, ascites, possible cholecystitis. Elevated AFP and CEA. - Plan: Continue current medication regime , sodium bicarb, monitoring and symptomatic treatment. Diagnostic/therapeutic Paracentesis pending. IV Sodium bicarb. IV fluid hydration as per nephrology.Maintain low potassium diet. Close monitoring of renal function, electrolytes with repeat labs ordered for this evening and a.m. The impression and plan of care has been dictated as directed. : I performed a history and examination of this patient, discussed the same with the dictator. I agree with the dictator's note ,documented as a scribe. Any additional findings or plans will be noted.
[2018-04-12 17:15] LABS: Glucose,Whole Blood 117 mg/dL (75-99)
[2018-04-12 21:31] LABS: Glucose,Whole Blood 163 mg/dL (75-99)
[2018-04-12 22:30] LABS: Total Protein, Body Fluid 900 mg/dL
[2018-04-13 06:06] LABS: Glucose,Whole Blood 107 mg/dL (75-99)
[2018-04-13] MEDS: INSULIN ASPART 100 UNIT/ML 1 ML 10 ML VIAL SQ SCH ×2 (06:17→12:50)
[2018-04-13 07:40] LABS: Albumin 2.4 g/dL (3.5-5.0); Calcium 8.1 mg/dL (8.4-10.2); Potassium 4.7 mmol/L (3.5-5.1); Total Bilirubin 7.1 mg/dL (0.2-1.3); Total Protein 6.4 g/dL (6.3-8.2)
[2018-04-13 07:52] LABS: INR 1.7 (<1.2); Prothrombin Time 15.8 sec (9.0-12.0)
[2018-04-13] MEDS: ALBUTEROL NEBULIZED 2.5 MG/3 ML INHALATION SCH ×2 (07:56→12:03)
[2018-04-13] MEDS: SYMBICORT 80-4.5 MCG INHALER INHALATION SCH (07:56)
[2018-04-13] MEDS: amLODIPine 5 MG TAB PO SCH (09:42)
[2018-04-13] MEDS: DEXTROSE 5% IN WATER 1,000 ML with SODIUM BICARB (1 MEQ/ML) 150 ML IV SCH (09:42)
[2018-04-13] MEDS: MECLIZINE 25 MG TAB PO SCH (09:43)
[2018-04-13] MEDS: LORATADINE 10 MG TAB PO SCH (09:43)
[2018-04-13] MEDS: PANTOPRAZOLE 40 MG/10 ML VIAL IVP SCH (09:43)
[2018-04-13] MEDS: SODIUM BICARBONATE TAB 650 MG TAB PO SCH (09:43)
[2018-04-13 09:58] VITALS: RESP 20
--- NOTE | 2018-04-13 12:03 | PN ---
PROGRESS NOTE DATE OF DICTATION: 04/13/2018 This is a 72-year-old pleasant white male who has a history of non-alcoholic liver cirrhosis diagnosed about a year ago and follows with Dr. Black. He was admitted to the hospital with abdominal distention, for which he underwent large-volume paracentesis 2 days ago. He also had acute kidney injury with elevated BUN and creatinine, and diuretics are presently on hold. Labs showed alpha fetoprotein of more than 100,000. Abdominal ultrasound done on April 10 showed evidence of two hepatic masses measuring 3 and 4 cm. He is 1feeling much better today. He denies any symptoms. PHYSICAL EXAMINATION: Appears comfortable; no apparent distress. VITAL SIGNS: Stable. Blood pressure is 113/60, pulse rate 101, temperature 97.5. HEENT EXAMINATION: Unremarkable. Conjunctivae are pink, sclerae anicteric. Oral cavity with no lesions. NECK: No JVD or lymph node enlargement. Chest was clear to auscultation. HEART: Regular rate and rhythm. ABDOMEN: Slightly distended. Some free fluid noted. Liver and spleen were not palpable. EXTREMITIES: One plus pedal edema. SKIN: No rashes. NEURO: He is alert and oriented x3. No focal deficits. LABS DONE FROM TODAY: WBC 7.3, hemoglobin 11.1, platelets 117. INR 1.7. Alpha fetoprotein is more than 100,000. CEA is 88. Total bilirubin is 7.1, AST 167, ALT 56, and alkaline phosphatase 149. IMPRESSION: 1. Cirrhosis/mass with gradual decompensation. 2. New onset ascites, status post large-volume paracentesis done 2 days ago. Cytology and fluid analysis is still pending. 3. Ultrasound showing 2 liver masses measuring 3 and 4 cm in size, alpha fetoprotein more than 100,000, all consistent with hepatocellular carcinoma. 4. Elevated BUN and creatinine, which is gradually improving. Diuretics on hold. Nephrology following the patient closely. RECOMMENDATIONS: 1. Recommend oncology consultation. 2. Agree with MRI of the liver to define the liver masses. 3. Continue to hold diuretics. 4. If the patient is being discharged home today, he was advised to follow up with Dr. Black within a week for further management plans. Patient is already scheduled for MRI of the liver on April 14. MMODL / IJN: [id number] /
[2018-04-13 12:18] LABS: Glucose,Whole Blood 169 mg/dL (75-99)
[2018-04-13 13:13] VITALS: BP 130/55; PULSE 104; TEMP 97.6
--- NOTE | 2018-04-13 13:24 | PN ---
PROGRESS NOTE Patient is seen for followup for acute kidney injury. He had paracentesis done yesterday; about 2-1/2 L. Patient's blood pressure has been stable. He states he has been voiding well. His creatinine is the same as yesterday. On examination, blood pressure is 118/51, heart rate 110 per minute. He is afebrile. EXAMINATION OF THE HEART: S1, S2. EXAMINATION OF LUNGS: Bilateral breath sounds are heard. ABDOMEN: Soft, non-tender. Some ascites is noted. Examination of lower extremities shows trace edema bilaterally. Labs show sodium 139, potassium 4.7, chloride 109, BUN 60, serum creatinine 2.27. ASSESSMENT: 1. Acute kidney injury, nonoliguric. Good urine output. Serum creatinine is slightly higher; however, it is the same as yesterday. Patient is maintained on small amount of IV fluids. He has been voiding well. He can be discharged from nephrology standpoint and will need followup as outpatient. 2. Metabolic acidosis associated with gastrointestinal fluid loss as well as renal failure, maintained on IV bicarb. Patient can be discharged home on oral sodium bicarb. 3. Hyperkalemia associated with acute kidney injury and acidosis, currently off of angiotensin-receptor blockers with improvement in the potassium. 4. Underlying liver cirrhosis with significantly elevated alpha fetoprotein with high suspicion for malignancy, status post paracentesis yesterday. PLAN: Patient can be discharged from nephrology standpoint. He will need to follow up within one week. We can maintain him on oral sodium bicarb as outpatient. Repeat labs in 2-3 days post discharge. I will also hold off on the [facility]. MMODL / IJN: [id number] /
--- NOTE | 2018-04-14 09:04 | DS ---
DISCHARGE SUMMARY DATE OF SERVICE: 04/13/2018. FINAL DIAGNOSES: 1. Hyperkalemia secondary to acute renal failure. 2. Generalized weakness secondary to hypokalemia, renal failure. 3. Renal failure, acute, secondary to intravascular volume depletion, prerenal azotemia, possibly hepatorenal syndrome. 4. Hepatic cirrhosis. 5. Hypertension. 6. Diabetes mellitus type 2. 7. Status post abdominal paracentesis. DISCHARGE DISPOSITION: The patient will be discharged in stable condition with guarded prognosis. Total time taken 35 minutes. HISTORY OF PRESENT ILLNESS: This 72-year-old gentleman with a past medical history of multiple medical problems was admitted with renal failure, hypokalemia, as well as ascites. The patient treated symptomatically. Patient improved significantly. Ascitic tap was also done. The patient is keen on going home at this time. The patient will be discharged in stable condition with guarded prognosis after clearance by multiple consultants. Total time taken 35 minutes. On exam, vital signs are stable. Cardiovascular S1, S2. Abdomen: Soft. Ascites present. Nervous System: No focal deficits. Creatinine improved to 2.27. DISCHARGE ADVICE: 1. Diet cardiac, hepatic low-potassium. 2. Activity limited until follow up. 3. Follow with Dr. Christianson in 2-3 days. 4. Follow with Dr. Black and Dr. Granger as advised. 5. Stop Exforge and Aldactone at this time. MEDICATIONS: 1. Vitamin B12 1000 mcg p.o. daily. 2. Iron sulfate 325 mg daily. 3. Breo Ellipta 1 puff daily. 4. Levaquin 500 mg daily as before to complete the course. 5. Antivert 25 mg b.i.d. 6. Prilosec 20 mg daily. 7. Promethazine 5-10 q.6h p.r.n. 8. Norvasc 5 mg p.o. daily. 9. Sodium bicarb 650 p.o. b.i.d. Once again, the patient is being discharged in stable condition with guarded prognosis. MMODL / IJN: [id number] /
== END 2018-04-13 14:24 | disposition home or self-care (01) | DRG 441 ==
LOC: EC 11:58 → 3SUR 14:37 → 6SEL 14:47
PROVIDERS: ADMIT Internal Medicine; ATTEND Internal Medicine
PROC: 0W9G3ZZ Drainage of Peritoneal Cavity, Percutaneous Approach (ICD-10-PCS; principal; 2018-04-12)
DX: K76.7 Hepatorenal syndrome (principal); N17.0 Acute kidney failure with tubular necrosis; C22.0 Liver cell carcinoma; E87.2 Acidosis; K76.6 Portal hypertension; K80.21 Calculus of gallbladder without cholecystitis with obstruction; R18.8 Other ascites; K74.60 Unspecified cirrhosis of liver; E11.9 Type 2 diabetes mellitus without complications; E86.9 Volume depletion, unspecified; E87.5 Hyperkalemia; I10 Essential (primary) hypertension; K21.9 Gastro-esophageal reflux disease without esophagitis; K22.70 Barrett's esophagus without dysplasia; K31.89 Other diseases of stomach and duodenum; Z82.49 Family history of ischemic heart disease and other diseases of the circulatory system
CPT/HCPCS: 36415; 49083; 71046; 76705; 76770; 80048; 80053; 80074; 81001; 82105; 82140; 82150; 82378; 82945; 83036; 83520; 83690; 84132; 84157; 85025; 85027; 85610; 85730; 87070; 87205; 88108; 88305; 89050; 93005; 94640; 96365; 96375; 99285

== ENCOUNTER 2018-04-18 11:38 | Inpatient (IN) | payer MEDICARE ==
[2018-04-18] MEDS ORDERED: SODIUM CHLORIDE 0.9% 500 ML 500 ML IV ONE (12:20)
[2018-04-18 12:51] LABS: Anisocytosis Slight; Basophils % (A) 0 %; Eosinophils # (A) 0.1 k/uL (0-0.7); Eosinophils % (A) 2 %; HCT 34.3 % (39.0-53.0); HGB 11.4 gm/dL (13.0-17.5); Lymphocytes # (A) 0.7 k/uL (1.0-4.8); Lymphocytes % (A) 10 %; MCH 34.8 pg (25.0-35.0); MCHC 33.1 g/dL (31.0-37.0); Macrocytosis Moderate; Mean Platelet Volume 7.8; Monocytes # (A) 0.4 k/uL (0-1.0); Monocytes % (A) 6 %; Neutrophils # (A) 5.5 k/uL (1.3-7.7); Neutrophils % (A) 79 %; Platelet Count 127 k/uL (150-450); RBC 3.27 m/uL (4.30-5.90); RDW 16.9 % (11.5-15.5)
--- NOTE | 2018-04-18 12:51 | ED ---
General Adult HPI - General Chief complaint: Recheck/Abnormal Lab/Rx Stated complaint: Kidney problems Time Seen by Provider: 04/18/18 12:12 Source: patient, RN notes reviewed Mode of arrival: ambulatory Limitations: no limitations - History of Present Illness Initial comments: 72-year-old male presents emergency department for abnormal labs. Patient states that he was recently discharged on Sunday for jaundice, elevated kidney function. Patient states that he had repeat labs yesterday which showed worsening kidney function. Patient states he has no ascites, more yellow than he was. Patient states that he doesn't respond his liver which he had an MRI without contrast and showed nondiagnostic cyst approximate one similar. He is scheduled to have MRI with contrast but unfortunately cannot have it secondary to his kidney function. Patient states that he has had recent weight gain and increasing abdominal size. Patient has a chest pain or increased shortness of breath at this time. - Related Data Home Medications Medication Instructions Recorded Confirmed Cyanocobalamin (Vitamin B-12) 1,000 mcg PO DAILY 11/23/16 04/18/18 [Vitamin B-12] Ferrous Sulfate [Iron (65 MG 325 mg PO DAILY 11/23/16 04/18/18 Elemental)] Promethazine HCl/Codeine 5 - 10 ml PO Q6HR PRN 01/04/17 04/18/18 [Prometh-Codein 6.25-10 mg/5 ml] Fluticasone/Vilanterol [Breo 1 puff INHALATION RT-DAILY 04/10/18 04/18/18 Ellipta 100-25 Mcg Inhaler] Meclizine [Antivert] 25 mg PO BID 04/10/18 04/18/18 Omeprazole [PriLOSEC] 20 mg PO DAILY 04/10/18 04/18/18 Amoxicillin 1,000 mg PO Q12H 04/18/18 04/18/18 Previous Rx's Medication Instructions Recorded Sodium Bicarbonate Tab 650 mg PO BID #30 tab 04/13/18 amLODIPine [Norvasc] 5 mg PO DAILY #30 tab 04/13/18 Allergies Allergy/AdvReac Type Severity Reaction Status Date / Time No Known Allergies Allergy Verified 04/18/18 13:02 Review of Systems ROS Statement: Those systems with pertinent positive or pertinent negative responses have been documented in the HPI. ROS Other: All systems not noted in ROS Statement are negative. Past Medical History Past Medical History: Diabetes Mellitus, GERD/Reflux, GI Bleed, Hypertension, Pneumonia Additional Past Medical History / Comment(s): Renal cysts, hepatic cirrhosis, diverticulosis, hiatal hernia(per past egd summary -segment of barretts esophagus),anemia-required blood transfusions History of Any Multi-Drug Resistant Organisms: None Reported Past Surgical History: No Surgical Hx Reported Additional Past Surgical History / Comment(s): kosta cataracts, egd/ colonoscopy, wisdom teeth extracted Past Anesthesia/Blood Transfusion Reactions: No Reported Reaction Additional Past Anesthesia/Blood Transfusion Reaction / Comment(s): past blood transfusions-no reaction Past Psychological History: No Psychological Hx Reported Smoking Status: Never smoker Past Alcohol Use History: None Reported Past Drug Use History: None Reported - Past Family History Mother Family Medical History: No Reported History Additional Family Medical History / Comment(s): Pt adopted, but knows mother. Healthy at 95y/o Father Family Medical History: Liver Disease, Myocardial Infarction ([place]) Additional Family Medical History / Comment(s): , heavy drinker General Exam Limitations: no limitations General appearance: alert, in no apparent distress Head exam: Present: atraumatic, normocephalic, normal inspection Eye exam: Present: PERRL, EOMI, scleral icterus. Absent: normal appearance, conjunctival injection, periorbital swelling ENT exam: Present: mucous membranes moist. Absent: normal exam, normal oropharynx (Yellowing noted underneath the tongue) Neck exam: Present: normal inspection. Absent: tenderness, meningismus, lymphadenopathy Respiratory exam: Present: normal lung sounds bilaterally. Absent: respiratory distress, wheezes, rales, rhonchi, stridor Cardiovascular Exam: Present: regular rate, normal rhythm, normal heart sounds. Absent: systolic murmur, diastolic murmur, rubs, gallop, clicks GI/Abdominal exam: Present: soft, distended, normal bowel sounds. Absent: tenderness, guarding, rebound, rigid Back exam: Absent: CVA tenderness (R), CVA tenderness (L) Course Vital Signs 04/18/18 04/18/18 11:50 13:05 Temperature 97.8 F Pulse Rate 97 88 Respiratory 18 18 Rate Blood Pressure 109/59 130/62 O2 Sat by Pulse 97 94 L Oximetry Medical Decision Making - Lab Data Result diagrams: 04/18/18 12:35 04/18/18 12:35 Lab Results 04/18/18 04/18/18 04/18/18 Range/Units 12:35 12:35 13:48 WBC 7.0 (3.8-10.6) k/uL RBC 3.27 L (4.30-5.90) m/uL Hgb 11.4 L (13.0-17.5) gm/dL Hct 34.3 L (39.0-53.0) % MCV 105.0 H D (80.0-100.0) fL MCH 34.8 (25.0-35.0) pg MCHC 33.1 (31.0-37.0) g/dL RDW 16.9 H (11.5-15.5) % Plt Count 127 L (150-450) k/uL Neutrophils % 79 % Lymphocytes % 10 % Monocytes % 6 % Eosinophils % 2 % Basophils % 0 % Neutrophils # 5.5 (1.3-7.7) k/uL Lymphocytes # 0.7 L (1.0-4.8) k/uL Monocytes # 0.4 (0-1.0) k/uL Eosinophils # 0.1 (0-0.7) k/uL Basophils # 0.0 (0-0.2) k/uL Anisocytosis Slight Macrocytosis Moderate Sodium 138 (137-145) mmol/L Potassium 5.9 H (3.5-5.1) mmol/L Chloride 107 (98-107) mmol/L Carbon Dioxide 14 L (22-30) mmol/L Anion Gap 17 mmol/L BUN 87 H (9-20) mg/dL Creatinine 4.33 H (0.66-1.25) mg/dL Est GFR (CKD-EPI)AfAm 15 (>60 ml/min/1.73 sqM) Est GFR (CKD-EPI)NonAf 13 (>60 ml/min/1.73 sqM) Glucose 109 H (74-99) mg/dL Calcium 8.8 (8.4-10.2) mg/dL Phosphorus 6.1 H (2.5-4.5) mg/dL Magnesium 2.7 H (1.6-2.3) mg/dL Total Bilirubin 12.8 H (0.2-1.3) mg/dL AST 266 H (17-59) U/L ALT 51 (21-72) U/L Alkaline Phosphatase 160 H (38-126) U/L Total Protein 7.6 (6.3-8.2) g/dL Albumin 2.8 L (3.5-5.0) g/dL Urine Color [place] Urine Appearance Cloudy (Clear) Urine pH 5.0 (5.0-8.0) Ur Specific [place] 1.014 (1.001-1.035) Urine Protein Trace H (Negative) Urine Glucose (UA) Negative (Negative) Urine Ketones Negative (Negative) Urine Blood Negative (Negative) Urine Nitrite Negative (Negative) Urine Bilirubin 1+ H (Negative) Urine Urobilinogen 2.0 (<2.0) mg/dL Ur Leukocyte Esterase Small H (Negative) Urine RBC 1 (0-5) /hpf Urine WBC 10 H (0-5) /hpf Urine Bacteria Rare H (None) /hpf Hyaline Casts 8 H (0-2) /lpf Disposition Clinical Impression: Hyperkalemia, Ascites of liver, Acute renal failure, Jaundice, Liver cirrhosis Disposition: ADMITTED IP TO THIS HOSP Condition: Fair Referrals: Chrissie Christianson MD [Primary Care Provider] - 1-2 days
[2018-04-18 13:03] LABS: Albumin 2.8 g/dL (3.5-5.0); Calcium 8.8 mg/dL (8.4-10.2); Magnesium 2.7 mg/dL (1.6-2.3); Phosphorus 6.1 mg/dL (2.5-4.5); Potassium 5.9 mmol/L (3.5-5.1); Total Bilirubin 12.8 mg/dL (0.2-1.3); Total Protein 7.6 g/dL (6.3-8.2)
[2018-04-18] MEDS: SODIUM CHLORIDE 0.9% 1,000 ML IV SCH (13:04)
--- NOTE | 2018-04-18 14:41 | XR ---
EXAMINATION TYPE: XR chest 2V DATE OF EXAM: 04/18/2018 COMPARISON: 04/10/2018 HISTORY: Cough TECHNIQUE: Frontal and lateral views of the chest are obtained. FINDINGS: There is hypoventilation of the lungs resulting in prominence of the pulmonary vasculature . There is also chronic right hemidiaphragm elevation and bibasilar opacity, likely atelectasis. Retr ocardiac opacity alternatively could relate to pneumonia. Cardiac silhouette is upper limits of ramírez l in size exaggerated by low lung volumes. Multilevel degenerative change of the thoracic spine is mi ld. IMPRESSION: Hypoventilatory lungs and chronic right hemidiaphragm elevation and accentuating finding s although there is a retrocardiac opacity that may represent atelectasis or early developing pneumon ia.
[2018-04-18 15:01] LABS: Appearance,Urine Cloudy (Clear); Bacteria,Urine Rare /hpf; Bilirubin,Urine 1+ (Negative); Blood,Urine Negative (Negative); Color,Urine Orange; Glucose,Urine (UA) Negative (Negative); Hyaline Casts,Urine 8 /lpf (0-2); Ketones,Urine Negative (Negative); Leukocyte Esterase,Urine Small (Negative); Nitrite,Urine Negative (Negative); Protein,Urine Trace (Negative); RBC,Urine 1 /hpf (0-5); Specific Gravity,Urine 1.014 (1.001-1.035); WBC,Urine 10 /hpf (0-5)
[2018-04-18] MEDS ORDERED: ONDANSETRON 4 MG/2 ML VIAL IVP PRN (15:50)
[2018-04-18 20:51] LABS: Glucose,Whole Blood 111 mg/dL (75-99)
[2018-04-18] MEDS ORDERED: SODIUM POLYSTYRENE SULFONATE 15 GM/60 ML BOTTLE PO STA (21:09)
[2018-04-18] MEDS ORDERED: NON-FORMULARY DRUG (Omeprazole 20 MG) PO SCH (21:15)
[2018-04-18] MEDS ORDERED: INSULIN REGULAR 100 UNIT/ML VIAL IV ONE (21:25)
[2018-04-18] MEDS ORDERED: DEXTROSE 50%-WATER 50 ML SYRINGE IVP STA (21:25)
[2018-04-18] MEDS: PANTOPRAZOLE 40 MG TABLET PO SCH (21:58)
[2018-04-18] MEDS: SODIUM BICARBONATE TAB 650 MG TAB PO SCH (21:58)
[2018-04-18] MEDS: MECLIZINE 25 MG TAB PO SCH (21:58)
[2018-04-19] MEDS: ALPRAZolam 0.25 MG TAB PO PRN ×2 (01:20→12:22)
[2018-04-19] MEDS: SODIUM CHLORIDE 0.9% 1,000 ML IV SCH (01:20)
[2018-04-19 02:48] LABS: Amphetamine Screen,Urine Not Detected (NotDetected); Barbiturate Screen,Urine Not Detected (NotDetected); Benzodiazepines Screen,Urine Not Detected (NotDetected); Cocaine Screen,Urine Not Detected (NotDetected); Methadone Screen, Urine Not Detected (NotDetected); Opiate Screen,Urine Not Detected (NotDetected); Oxycodone Screen, Urine Not Detected (NotDetected); Phencyclidine Screen,Urine Not Detected (NotDetected); Tricyclic Antidepressant,Urine Not Detected (NotDetected); Urn Cannabinoid Scrn Not Detected (NotDetected)
[2018-04-19 02:52] LABS: Albumin 2.6 g/dL (3.5-5.0); Calcium 8.2 mg/dL (8.4-10.2); Potassium 5.1 mmol/L (3.5-5.1); Total Bilirubin 12.6 mg/dL (0.2-1.3); Total Protein 6.7 g/dL (6.3-8.2)
[2018-04-19 06:14] LABS: Glucose,Whole Blood 82 mg/dL (75-99)
[2018-04-19] MEDS: IOPAMIDOL-300 CONTRAST 30 ML VIAL (ORAL USE) PO PRN ×2 (06:21→06:22)
[2018-04-19] MEDS: PANTOPRAZOLE 40 MG TABLET PO SCH ×2 (06:22→17:48)
[2018-04-19] MEDS: INSULIN ASPART 100 UNIT/ML 1 ML 10 ML VIAL SQ SCH ×4 (06:26→22:11)
[2018-04-19] MEDS ORDERED: amLODIPine 5 MG TAB PO SCH (09:00)
[2018-04-19] MEDS: SYMBICORT 80-4.5 MCG INHALER INHALATION SCH ×3 (09:10→21:24)
[2018-04-19] MEDS: CYANOCOBALAMIN 500 MCG TAB PO SCH (09:30)
[2018-04-19] MEDS: MECLIZINE 25 MG TAB PO SCH ×2 (09:30→21:11)
[2018-04-19] MEDS: SODIUM BICARBONATE TAB 650 MG TAB PO SCH ×2 (09:30→21:11)
--- NOTE | 2018-04-19 10:15 | HP ---
HISTORY AND PHYSICAL DATE OF SERVICE: 04/18/2018 CHIEF COMPLAINT: Abnormal labs. HISTORY OF PRESENT ILLNESS: This is a 72-year-old gentleman with a past medical history of multiple medical problems, was recently admitted with hyperkalemia secondary to renal failure. Patient had generalized weakness also. The patient also had history of hepatic cirrhosis and patient improved significantly. The patient went home. Ascitic tap was also done. The creatinine value during that admission was only 2.27. The patient went home and today the creatinine went up to 4.33. Patient admitted for further evaluation and treatment. The bilirubin was also elevated up to 12.8. The previous bilirubin is only 7.1. There is no history of fever, rigors. No history of headache, loss of consciousness, seizures at this time. PAST MEDICAL HISTORY: History of diabetes, history of GERD, hypertension, history of pneumonia, history of hepatic cirrhosis. MEDICATIONS: Prior to admission, home medications are: 1. Norvasc 5 mg p.o. b.i.d. 2. Amoxicillin 1000 mg p.o. b.i.d. 3. Sodium bicarb 650 p.o. b.i.d. 4. Promethazine codeine 5 to 10 mg mL q.6 p.r.n. 5. Prilosec 20 mg daily. 6. Antivert 25 mg b.i.d. 8. Iron 320 mg daily. 9. Vitamin B12 one thousand mcg daily. ALLERGIES: None. FAMILY HISTORY: Unknown, patient is adopted. SOCIAL HISTORY: No history of smoking. No history of alcohol intake. REVIEW OF SYSTEMS: ENT: No diminished hearing or vision. CARDIOVASCULAR: No angina. RESPIRATORY: As mentioned earlier. GI: As mentioned earlier. : No dysuria. NERVOUS SYSTEM: No numbness or weakness. ALLERGY/IMMUNOLOGY: No asthma. MUSCULOSKELETAL: As mentioned earlier. HEMATOLOGY/ONCOLOGY: No history of anemia. ENDOCRINE: No history of diabetes or hypothyroidism. CONSTITUTIONAL: As mentioned earlier. DERMATOLOGY: Negative. RHEUMATOLOGY: Negative. PSYCHIATRY: As mentioned earlier. PHYSICAL EXAMINATION: Alert and oriented x3. Pulse 102, blood pressure 118/60, respiration 18, temperature 97.2, pulse ox 94% on room air. HEENT: Conjunctivae pale, oral mucosa icteric. Neck is no jugular venous distention. No carotid bruit. No lymph node enlargement. CARDIOVASCULAR: S1, S2, muffled. RESPIRATORY: Breath sounds diminished at the bases. No rhonchi. No crackles. ABDOMEN: Soft. Mild diffuse distention present. No mass palpable. LEGS: No edema, no swelling. NERVOUS SYSTEM: Higher functions as mentioned, moves all 4 limbs. No focal motor deficits. LYMPHATICS: No lymph node enlargement in neck or axillae. SKIN: No ulcer, rash, bleeding. LABS: WBC is 7, hemoglobin is 11.2, MCV 105, platelets are 127. Sodium 130, potassium 5.2, creatinine is 4.33, also 6.1. Bilirubin is 12.8, AST is 266, ALT is 51. ASSESSMENT: 1. Acute on chronic renal failure. 2. Acute hepatitis. 3. Hepatic cirrhosis. 4. Possible hepatorenal syndrome. 5. Hyperkalemia. 6. Macrocytic anemia. 7. Thrombocytopenia. 8. 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 9. Diabetes mellitus type 2. 10.Gastroesophageal reflux disease. 11.History of gastrointestinal bleed. 12.Hypertension. 13.History of pneumonia. 14.History of diverticulosis. 15.History of hiatal hernia. 16.History of Sage's esophagus. RECOMMENDATION: In this 72-year-old gentleman who presented with multiple complex medical issues , will monitor the patient closely, continue with the current management and symptomatic treatment. Otherwise, as this time I would recommend continue to monitor. The hepatitis panel was negative during the recent admission and SPEEDY screen was positive. The titers are non-instrumental, muscle antibody is also positive at 21, otherwise Tylenol was negative. UA was noted. Other chemistries noted. The patient admitted for further evaluation and treatment. There is no history of any fever, rigor, chills. No history of headache, loss consciousness, seizures. The patient had a renal ultrasound recently and shows some renal cyst. The last abdomen and pelvis CAT scan was of last year which showed some peritoneal fluid. At this time I recommend to continue the current management and symptomatic treatment. Continue with the IV fluids, cautiously consult GI and Nephrology. I would also recommend a CAT scan of the abdomen and pelvis. Resume the home medications. Avoid hepatotoxic medications. No Tylenol. Prognosis extremely guarded because of multiple complex medical issues. Further recommendations to follow. Kayexalate has been given, the potassium diet is recommended. MMODL / IJN: [id number] / MTDD
--- NOTE | 2018-04-19 10:18 | CT ---
EXAMINATION TYPE: CT ChestAbdPelvis wo con DATE OF EXAM: 04/19/2018 COMPARISON: CT abdomen and pelvis November 23, 2016 HISTORY: Distention, cirrhosis CT DLP: 1385.8 mGycm. Automated Exposure Control for Dose Reduction was Utilized. TECHNIQUE: CT scan of the thorax, abdomen and pelvis is performed with oral but without IV contrast. FINDINGS: Within the limitations of noncontrast study, the following observations are made. LUNGS: Somewhat low lung volumes are noted. There are new tiny bilateral pleural effusions with bibas ilar consolidation. There is additional scattered areas of linear scarring and/or atelectasis for ref erence medial superior left upper lobe axial image 19. No suspicious nodules or masses are identifie d The tracheobronchial tree is patent. MEDIASTINUM: There are no definitive greater than 1 cm hilar or mediastinal lymph nodes. No pericar dial effusion is seen. Cardiomegaly is present. OTHER: Bilateral gynecomastia is appreciated. LIVER/GB: Gallbladder is redemonstrated with distended margins and increased density suspicious for s ludge. There are smaller dependent stones redemonstrated. Liver remains somewhat small in size and lobulated contour consistent with underlying cirrhosis. Ther e is new vague hypodense area right hepatic lobe posterior segment axial image 44 in which new solid mass or neoplasm cannot be excluded. Correlate clinically and with alpha-fetoprotein levels. PANCREAS: Some mild generalized fat replaced atrophy of pancreas is seen.. SPLEEN: Splenomegaly is redemonstrated measuring 14.3 cm long axis coronal image 82 no significant ch matt from prior. ADRENALS: No significant abnormality is seen. KIDNEYS: Simple appearing thin-walled cyst along posterior margin of the mid to lower pole level left kidney are redemonstrated presumed exophytic renal cysts. BOWEL: Oral contrast does not reach level of terminal ileum. There is no suspicious small or large shanice wel dilatation. There is diffuse thickening of the gastric wall. Cannot exclude gastritis versus prod uct of underlying liver disease. Thickening of the mid to distal esophagus is also identified on curr ent study. GENITAL ORGANS: No gross abnormality seen. LYMPH NODES: No greater than 1cm abdominal or pelvic lymph nodes are appreciated. OSSEOUS STRUCTURES: Multilevel moderate to severe spurring in the thoracolumbar spine is seen. Exagge rated kyphosis is present in the cervical spine. Facet arthropathy lower lumbar spine is seen. OTHER: There are small to moderate amount of abdominal and pelvic ascites on current exam not signifi cantly changed from prior. There is mild to moderate calcified plaque of aorta extending into branch vessels. IMPRESSION: 1. Small to moderate amount of abdominal and pelvic ascites not significantly changed from prior CT. Note is made of recent paracentesis 7 days earlier. 2. Evidence of cirrhosis with underlying portal hypertension redemonstrated. Cannot exclude new solid liver lesion in right hepatic lobe, correlate clinically and with fetoprotein levels to exclude hepa tocellular carcinoma. Liver protocol contrast enhanced CT/MRI can be performed to further evaluate if desired. 3. Low lung volumes and cardiomegaly with tiny bilateral pleural effusions and bibasilar consolidatio n. 4. Possible mid to distal esophagitis and diffuse gastritis versus product of underlying liver diseas e. Correlate clinically.
--- NOTE | 2018-04-19 11:14 | P.CONS ---
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 Patient has a history of nonalcoholic liver cirrhosis recently hospitalized with elevated AFP greater than 100,000, MRI March 2018 reporting liver masses presumed hepatocellular carcinoma. He underwent a diagnostic therapeutic paracentesis 04/12/2018 2.1 L removal negative for malignancy. Patient was scheduled for outpatient open MRI with IV contrast yesterday but it was canceled secondary to elevated kidney function. Patient was not taking diuretics prior to admission. Increased abdominal distention since discharge last week causing back discomfort. He has gained 3 pounds in the last week. White count 7. Hemoglobin 11.4. MCV 105. Platelet 127. INR 1.7 on 2017. Total bili on 04/13/2018 was 7.1. AST 167. ALT 56. BP 149. Total bili on this admission 12.8. AST 266. ALT 51 AP 160. Creatinine 3.9 previously 2.2 weeks ago. Denies fever or chills hematemesis hematochezia melena. Review of Systems Constitutional: Denies fever, chills, sweats, reports increased weight gain, denies loss. HEENT: History of chronic migraines, denies blurred vision or loss, earaches, drainage, tinnitus, oral mucosal lesions, dysphagia, or odynophagia. CARDIAC: Negative for chest pain, admitted with episode of PAF. RESPIRATORY: Negative for shortness of breath, hemoptysis, cough, or sputum production. GI: See HPI for pertinent findings. : Negative for hematuria, urgency, frequency, polyuria, or dysuria. MUSCULOSKELETAL: Negative for muscle aches, swelling, arthritis, and arthralgias. NEUROLOGIC: Negative for stroke or TIA. ENDOCRINE: Negative for thyroid problems. SKIN: Negative for rash or itching. PSYCHIATRIC: Negative history for depression and anxiety Past Medical History Past Medical History: Diabetes Mellitus, GERD/Reflux, GI Bleed, Hypertension, Pneumonia Additional Past Medical History / Comment(s): Renal cysts, hepatic cirrhosis, diverticulosis, hiatal hernia(per past egd summary -segment of barretts esophagus),anemia-required blood transfusions History of Any Multi-Drug Resistant Organisms: None Reported Past Surgical History: No Surgical Hx Reported Additional Past Surgical History / Comment(s): kosta cataracts, egd/ colonoscopy, wisdom teeth extracted Past Anesthesia/Blood Transfusion Reactions: No Reported Reaction Additional Past Anesthesia/Blood Transfusion Reaction / Comm: past blood transfusions-no reaction Past Psychological History: No Psychological Hx Reported Smoking Status: Never smoker Past Alcohol Use History: None Reported Past Drug Use History: None Reported - Past Family History Mother Family Medical History: No Reported History Additional Family Medical History / Comment(s): Pt adopted, but knows mother. Healthy at 95y/o Father Family Medical History: Liver Disease, Myocardial Infarction ([place]) Additional Family Medical History / Comment(s): , heavy drinker Medications and Allergies Home Medications Medication Instructions Recorded Confirmed Type Cyanocobalamin (Vitamin B-12) 1,000 mcg PO DAILY 11/23/16 04/18/18 History [Vitamin B-12] Ferrous Sulfate [Iron (65 MG 325 mg PO DAILY 11/23/16 04/18/18 History Elemental)] Promethazine HCl/Codeine 5 - 10 ml PO Q6HR PRN 01/04/17 04/18/18 History [Prometh-Codein 6.25-10 mg/5 ml] Fluticasone/Vilanterol [Breo 1 puff INHALATION RT-DAILY 04/10/18 04/18/18 History Ellipta 100-25 Mcg Inhaler] Meclizine [Antivert] 25 mg PO BID 04/10/18 04/18/18 History Omeprazole [PriLOSEC] 20 mg PO DAILY 04/10/18 04/18/18 History Sodium Bicarbonate Tab 650 mg PO BID #30 tab 04/13/18 04/18/18 Rx Amoxicillin 1,000 mg PO Q12H 04/18/18 04/18/18 History amLODIPine [Norvasc] 5 mg PO BID 04/18/18 04/18/18 History Allergies Allergy/AdvReac Type Severity Reaction Status Date / Time No Known Allergies Allergy Verified 04/18/18 13:02 Physical Exam Vitals: Vital Signs Temp Pulse Pulse Resp BP BP Pulse Ox 04/19/18 04:00 97.9 F 94 18 110/55 91 L 04/19/18 00:00 97.2 F L 102 H 18 118/61 94 L 10/11/18 20:00 97.6 F 94 18 128/61 94 L 04/18/18 16:44 97.8 F 92 18 135/62 93 L 04/18/18 13:05 88 18 130/62 94 L 04/18/18 11:50 97.8 F 97 18 109/59 97 Intake and Output 04/18/18 04/19/18 04/19/18 22:59 06:59 14:59 Intake Total 240 Output Total 100 Balance -100 240 Intake: Oral 240 Output: Urine 100 Other: Voiding Method Toilet Toilet Urinal Urinal # Voids 0 1 1 # Bowel Movements 0 Weight 103.419 kg 105.6 kg General appearance: The patient is alert, oriented, in no acute distress. Visibly jaundice HET: Head is normocephalic and atraumatic. Pupils are equal and reactive. Sclerae icterus. Oropharynx is clear without lesions. Neck: Supple without lymphadenopathy. Trachea midline. Heart: S1 S2. Regular rate and rhythm. Lungs: No crackles or wheezes are heard. Abdomen: Soft, nontender, moderately distended with moderate ascites with bowel sounds. No peritoneal signs. No palpable organomegaly or masses. Extremities: Normal skin color and turgor. No cyanosis, rash, ulceration, clubbing, or edema. Radial and pedal pulses are 2/4 bilaterally. Neurological: No focal deficits. Strength and sensation are grossly intact. Results CBC & Chem 7: 04/18/18 12:35 04/19/18 02:25 Labs: Abnormal Lab Results - Last 24 Hours (Table) 04/18/18 04/18/18 04/18/18 Range/Units 12:35 12:35 13:48 RBC 3.27 L (4.30-5.90) m/uL Hgb 11.4 L (13.0-17.5) gm/dL Hct 34.3 L (39.0-53.0) % MCV 105.0 H D (80.0-100.0) fL RDW 16.9 H (11.5-15.5) % Plt Count 127 L (150-450) k/uL Lymphocytes # 0.7 L (1.0-4.8) k/uL Sodium (137-145) mmol/L Potassium 5.9 H (3.5-5.1) mmol/L Carbon Dioxide 14 L (22-30) mmol/L BUN 87 H (9-20) mg/dL Creatinine 4.33 H (0.66-1.25) mg/dL Glucose 109 H (74-99) mg/dL POC Glucose (mg/dL) (75-99) mg/dL Calcium (8.4-10.2) mg/dL Phosphorus 6.1 H (2.5-4.5) mg/dL Magnesium 2.7 H (1.6-2.3) mg/dL Total Bilirubin 12.8 H (0.2-1.3) mg/dL AST 266 H (17-59) U/L Alkaline Phosphatase 160 H (38-126) U/L Albumin 2.8 L (3.5-5.0) g/dL Urine Protein Trace H (Negative) Urine Bilirubin 1+ H (Negative) Ur Leukocyte Esterase Small H (Negative) Urine WBC 10 H (0-5) /hpf Urine Bacteria Rare H (None) /hpf Hyaline Casts 8 H (0-2) /lpf 04/18/18 04/19/18 Range/Units 20:49 02:25 RBC (4.30-5.90) m/uL Hgb (13.0-17.5) gm/dL Hct (39.0-53.0) % MCV (80.0-100.0) fL RDW (11.5-15.5) % Plt Count (150-450) k/uL Lymphocytes # (1.0-4.8) k/uL Sodium 135 L (137-145) mmol/L Potassium (3.5-5.1) mmol/L Carbon Dioxide 13 L (22-30) mmol/L BUN 91 H (9-20) mg/dL Creatinine 3.90 H (0.66-1.25) mg/dL Glucose (74-99) mg/dL POC Glucose (mg/dL) 111 H (75-99) mg/dL Calcium 8.2 L (8.4-10.2) mg/dL Phosphorus (2.5-4.5) mg/dL Magnesium (1.6-2.3) mg/dL Total Bilirubin 12.6 H (0.2-1.3) mg/dL AST 242 H (17-59) U/L Alkaline Phosphatase 143 H (38-126) U/L Albumin 2.6 L (3.5-5.0) g/dL Urine Protein (Negative) Urine Bilirubin (Negative) Ur Leukocyte Esterase (Negative) Urine WBC (0-5) /hpf Urine Bacteria (None) /hpf Hyaline Casts (0-2) /lpf Microbiology - Last 24 Hours (Table) 04/19/18 02:24 Urine Culture - Preliminary Urine,Voided Assessment and Plan (1) Jaundice Narrative/Plan: 72-year-old gentleman with presumed hepatocellular carcinoma with AFP greater than 100,000 liver lesions per [place] presents with worsening renal function acute kidney injury possible hepatorenal syndrome and worsening jaundice and ascites. Status post-therapeutic diagnostic paracentesis a week ago with negative cytology. Jaundice is secondary to intrahepatic malignancy possible component of decompensated nonalcoholic liver cirrhosis. Current Visit: Yes Status: Acute Code(s): R17 - UNSPECIFIED JAUNDICE SNOMED Code(s): 88363332 (2) Acute renal failure Current Visit: Yes Status: Acute Code(s): N17.9 - ACUTE KIDNEY FAILURE, UNSPECIFIED SNOMED Code(s): 95259100 (3) Liver cirrhosis Current Visit: Yes Status: Acute Code(s): K74.60 - UNSPECIFIED CIRRHOSIS OF LIVER SNOMED Code(s): 97996289 (4) Abnormal MRI, liver Current Visit: No Status: Acute Code(s): R93.2 - ABNORMAL FINDINGS ON DX IMAGING OF LIVER AND BILIARY TRACT SNOMED Code(s): 764531008 (5) Elevated AFP Current Visit: No Status: Acute Code(s): R77.2 - ABNORMALITY OF ALPHAFETOPROTEIN SNOMED Code(s): 742127120 Plan: 1. Therapeutic paracentesis. We'll proceed with ultrasound of the abdomen today. PT/INR. Oncology consultation. Supportive measures. Daily CMP/PT/ INR. Renal low-sodium diet. We'll defer to diuretic therapy nephrology service. Patient will require pre and post-albumin for paracentesis. Will follow closely with you. Thank you for this kind referral and the opportunity to participate in the care of your patient. This consultation was discussed with Dr. Black. The impression and plan of care have been directed as dictated.
[2018-04-19 11:47] LABS: Glucose,Whole Blood 60 mg/dL (75-99)
[2018-04-19 12:11] LABS: Glucose,Whole Blood 68 mg/dL (75-99)
[2018-04-19] MEDS: ALBUMIN HUMAN 25% 50 ML in EMPTY BAG 1 BAG IVPB SCH ×2 (12:24→12:26)
[2018-04-19 12:26] LABS: Glucose,Whole Blood 75 mg/dL (75-99)
[2018-04-19 12:58] LABS: INR 1.8 (<1.2); Prothrombin Time 16.1 sec (9.0-12.0)
--- NOTE | 2018-04-19 13:11 | P.CONS ---
History of Present Illness - Reason for Consult Consult date: 04/19/18 Hepatocellular Carcinoma Requesting physician: Vandana Leija - Chief Complaint Worsening Jaundice and renal function - History of Present Illness This is a very nice patient who was referred because of persistent pancytopenia in July of 2017. he was seen in the office at that time by Dr. courtney and was was apparently diagnosed with non-alcholic liver cirrhosis in November 2016 when he presented with GIB,had EGD/colonoscopy which revealed evidence of esophageal varices,CT scan of abdomen revealed cirrhotic liver and ascites, he had paracentesis done,work up was negative and it was felt to be related to fatty liver since he used to be over 300 pounds. Recently he was hospitalized with elevated AFP, MRI March 2018 reported liver masses presumed hepatocellular carcinoma. He underwent a diagnostic therapeutic paracentesis 04/12/2018 2.1 L removal negative for malignancy Patient was scheduled for outpatient open MRI with IV contrast yesterday but it was canceled secondary to elevated kidney function. Today Creatinine 3.90, in Septemeber Creat 1.19 and 04/10 = 2.01 Total Bili today 12.6, AST = 242 04/13 = T. Bili 7.1 US abdomen 04/10/18: indeterminate liver masses inferior right lobe largest 3.7 x 4.9 x 4.4 cm, cirrhosis, CT CHest,Abd, Pelvis 04/18 = Increased Ascites and solid nodule potential right hepatic lobe AFP = Greater than 100,000 Review of Systems A 14 point review of systems assessed and completed and all negative except HPI Past Medical History Past Medical History: Diabetes Mellitus, GERD/Reflux, GI Bleed, Hypertension, Pneumonia Additional Past Medical History / Comment(s): Renal cysts, hepatic cirrhosis, diverticulosis, hiatal hernia(per past egd summary -segment of barretts esophagus),anemia-required blood transfusions History of Any Multi-Drug Resistant Organisms: None Reported Past Surgical History: No Surgical Hx Reported Additional Past Surgical History / Comment(s): kosta cataracts, egd/ colonoscopy, wisdom teeth extracted Past Anesthesia/Blood Transfusion Reactions: No Reported Reaction Additional Past Anesthesia/Blood Transfusion Reaction / Comm: past blood transfusions-no reaction Past Psychological History: No Psychological Hx Reported Smoking Status: Never smoker Past Alcohol Use History: None Reported Past Drug Use History: None Reported - Past Family History Mother Family Medical History: No Reported History Additional Family Medical History / Comment(s): Pt adopted, but knows mother. Healthy at 95y/o Father Family Medical History: Liver Disease, Myocardial Infarction (HI) Additional Family Medical History / Comment(s): , heavy drinker Medications and Allergies Home Medications Medication Instructions Recorded Confirmed Type Cyanocobalamin (Vitamin B-12) 1,000 mcg PO DAILY 11/23/16 04/18/18 History [Vitamin B-12] Ferrous Sulfate [Iron (65 MG 325 mg PO DAILY 11/23/16 04/18/18 History Elemental)] Promethazine HCl/Codeine 5 - 10 ml PO Q6HR PRN 01/04/17 04/18/18 History [Prometh-Codein 6.25-10 mg/5 ml] Fluticasone/Vilanterol [Breo 1 puff INHALATION RT-DAILY 04/10/18 04/18/18 History Ellipta 100-25 Mcg Inhaler] Meclizine [Antivert] 25 mg PO BID 04/10/18 04/18/18 History Omeprazole [PriLOSEC] 20 mg PO DAILY 04/10/18 04/18/18 History Sodium Bicarbonate Tab 650 mg PO BID #30 tab 04/13/18 04/18/18 Rx Amoxicillin 1,000 mg PO Q12H 04/18/18 04/18/18 History amLODIPine [Norvasc] 5 mg PO BID 04/18/18 04/18/18 History Allergies Allergy/AdvReac Type Severity Reaction Status Date / Time No Known Allergies Allergy Verified 04/18/18 13:02 Physical Exam Vitals: Vital Signs Temp Pulse Pulse Resp BP BP Pulse Ox 04/19/18 04:00 97.9 F 94 18 110/55 91 L 04/19/18 00:00 97.2 F L 102 H 18 118/61 94 L 04/18/18 20:00 97.6 F 94 18 128/61 94 L 04/18/18 16:44 97.8 F 92 18 135/62 93 L 04/18/18 13:05 88 18 130/62 94 L Intake and Output 04/18/18 04/19/18 04/19/18 22:59 06:59 14:59 Intake Total 240 Output Total 100 Balance -100 240 Intake: Oral 240 Output: Urine 100 Other: Voiding Method Toilet Toilet Urinal Urinal # Voids 0 1 1 # Bowel Movements 0 Weight 103.419 kg 105.6 kg Gen: The patient is alert, oriented, in no acute distress. jaundice HEAD: Head is normocephalic and atraumatic. Positive Sclerae icterus. Neck: Supple Trachea midline. LN: No cervical, axillary LN on Palpation Heart: S1 S2. Regular rate and rhythm. Lungs: No increased respiratory effort, Diminished bilateral lower lobes Abdomen:distended with moderate ascites Extremities: Jaundice, Dry No cyanosis, rash. BLE Edema Neuro: No focal deficits. Strength and sensation are grossly intact. Results CBC & Chem 7: 04/18/18 12:35 04/19/18 02:25 Labs: Abnormal Lab Results - Last 24 Hours (Table) 04/18/18 04/18/18 04/18/18 Range/Units 12:35 12:35 13:48 RBC 3.27 L (4.30-5.90) m/uL Hgb 11.4 L (13.0-17.5) gm/dL Hct 34.3 L (39.0-53.0) % MCV 105.0 H D (80.0-100.0) fL RDW 16.9 H (11.5-15.5) % Plt Count 127 L (150-450) k/uL Lymphocytes # 0.7 L (1.0-4.8) k/uL Sodium (137-145) mmol/L Potassium 5.9 H (3.5-5.1) mmol/L Carbon Dioxide 14 L (22-30) mmol/L BUN 87 H (9-20) mg/dL Creatinine 4.33 H (0.66-1.25) mg/dL Glucose 109 H (74-99) mg/dL POC Glucose (mg/dL) (75-99) mg/dL Calcium (8.4-10.2) mg/dL Phosphorus 6.1 H (2.5-4.5) mg/dL Magnesium 2.7 H (1.6-2.3) mg/dL Total Bilirubin 12.8 H (0.2-1.3) mg/dL AST 266 H (17-59) U/L Alkaline Phosphatase 160 H (38-126) U/L Albumin 2.8 L (3.5-5.0) g/dL Urine Protein Trace H (Negative) Urine Bilirubin 1+ H (Negative) Ur Leukocyte Esterase Small H (Negative) Urine WBC 10 H (0-5) /hpf Urine Bacteria Rare H (None) /hpf Hyaline Casts 8 H (0-2) /lpf 04/18/18 04/19/18 04/19/18 Range/Units 20:49 02:25 11:45 RBC (4.30-5.90) m/uL Hgb (13.0-17.5) gm/dL Hct (39.0-53.0) % MCV (80.0-100.0) fL RDW (11.5-15.5) % Plt Count (150-450) k/uL Lymphocytes # (1.0-4.8) k/uL Sodium 135 L (137-145) mmol/L Potassium (3.5-5.1) mmol/L Carbon Dioxide 13 L (22-30) mmol/L BUN 91 H (9-20) mg/dL Creatinine 3.90 H (0.66-1.25) mg/dL Glucose (74-99) mg/dL POC Glucose (mg/dL) 111 H 60 L (75-99) mg/dL Calcium 8.2 L (8.4-10.2) mg/dL Phosphorus (2.5-4.5) mg/dL Magnesium (1.6-2.3) mg/dL Total Bilirubin 12.6 H (0.2-1.3) mg/dL AST 242 H (17-59) U/L Alkaline Phosphatase 143 H (38-126) U/L Albumin 2.6 L (3.5-5.0) g/dL Urine Protein (Negative) Urine Bilirubin (Negative) Ur Leukocyte Esterase (Negative) Urine WBC (0-5) /hpf Urine Bacteria (None) /hpf Hyaline Casts (0-2) /lpf 04/19/18 Range/Units 12:00 RBC (4.30-5.90) m/uL Hgb (13.0-17.5) gm/dL Hct (39.0-53.0) % MCV (80.0-100.0) fL RDW (11.5-15.5) % Plt Count (150-450) k/uL Lymphocytes # (1.0-4.8) k/uL Sodium (137-145) mmol/L Potassium (3.5-5.1) mmol/L Carbon Dioxide (22-30) mmol/L BUN (9-20) mg/dL Creatinine (0.66-1.25) mg/dL Glucose (74-99) mg/dL POC Glucose (mg/dL) 68 L (75-99) mg/dL Calcium (8.4-10.2) mg/dL Phosphorus (2.5-4.5) mg/dL Magnesium (1.6-2.3) mg/dL Total Bilirubin (0.2-1.3) mg/dL AST (17-59) U/L Alkaline Phosphatase (38-126) U/L Albumin (3.5-5.0) g/dL Urine Protein (Negative) Urine Bilirubin (Negative) Ur Leukocyte Esterase (Negative) Urine WBC (0-5) /hpf Urine Bacteria (None) /hpf Hyaline Casts (0-2) /lpf Microbiology - Last 24 Hours (Table) 04/19/18 02:24 Urine Culture - Preliminary Urine,Voided CT scan - abdomen: report reviewed CT scan - chest: report reviewed CT scan - pelvis: report reviewed MRI - abdomen: report reviewed Assessment and Plan Plan: Assessment and Recommendations: 1. Abnormal Liver MRI: - Ultrasound and CT scan reviewed and compared to previous. In the picture of increasing Jaundice, Abdominal Ascites and very elevated AFP differential concer for underlying Hepatocellular Carcinoma - Although clinically a diagnosis of hepatocellular cancer is likely in order to offer any treatment a tissue biopsy will be needed to obtain coverage for treatment. - Set up for Interventional Radiology to biopsy Liver on Sunday - Plan for diagnostic biopsy for Sunday 2. Elevated Bilirubin: - Likely secondary to known cirrhosis and tumor burden from likely hepatocellular cancer - Monitor Closely 3. Coagulopathy secondary to Liver Disease: - Vitamin K and likely require FFP prior to biopsy - Monitor PT/INR Closely 4. Increasing Abdominal Ascites: - Previous Paracentesis failed to show malignant cells 5. Increasing Jaundice - Secondary to above. Physician Attestation: I have completed the Full History and Physical of this patient and agree with above dictation by Mitra Chow NP. DIctated as a scribe
--- NOTE | 2018-04-19 14:25 | US ---
EXAMINATION TYPE: US abdomen limited DATE OF EXAM: 04/19/2018 COMPARISON: NONE CLINICAL HISTORY: ascites. Limited ultrasound demonstrates a small amount ascites. IMPRESSION: Small amount of ascites
--- NOTE | 2018-04-19 14:25 | US ---
Therapeutic paracentesis. DATE OF EXAM: 04/19/2018 CLINICAL HISTORY: Ascites The procedure was discussed with the patient. The risks, complications, benefits, and alternatives we re discussed and any questions were answered. Informed consent was obtained. The patient was placed s upine on the ultrasound table and prepped and draped in the usual sterile fashion. All elements of maximal barrier technique were utilized. Under ultrasound guidance, access into the left lower quadrant was obtained, via the paracentesis catheter system and direct ultrasound guidance . Approximately 1.4 liters of straw-colored fluid was removed. The patient was stable throughout the pr ocedure and remained stable upon discharge from Department of Radiology. IMPRESSION: Successful therapeutic paracentesis under ultrasound guidance.
[2018-04-19 15:24] LABS: Hemoglobin A1C 6.1 % (4.0-6.0)
[2018-04-19] MEDS: BENZOCAINE/MENTHOL LOZENG 1 EACH LOZENGE MUCOUS MEM PRN ×2 (16:05→21:10)
[2018-04-19] MEDS: DEXTROSE 5% IN WATER 1,000 ML with SODIUM BICARB (1 MEQ/ML) 100 ML IV SCH (16:05)
[2018-04-19 16:31] LABS: Glucose,Whole Blood 109 mg/dL (75-99)
--- NOTE | 2018-04-19 19:03 | PN ---
PROGRESS NOTE DATE OF SERVICE: 04/19/2018 This 72-year-old gentleman who was admitted with multiple was abdominal distention, also had AFB positive serum markers. Gastroenterology and as well as Hematology- Oncology are following the patient to rule out the possibility of malignancy. No chest pain. No palpitations. No fever. No rash on exam. PAST MEDICAL HISTORY: Reviewed. REVIEW OF SYSTEMS: CARDIOVASCULAR: No angina. RESPIRATORY: As mentioned earlier. GI: As mentioned. : No dysuria. NERVOUS SYSTEM: No numbness, weakness. CURRENT MEDICATIONS: Reviewed and include: 1. Xanax 0.5 t.i.d. p.r.n. 2. Symbicort 80/4.5, 1 puff b.i.d. 3. Vitamin D 2000 mg daily. 4. NovoLog scale. 5. Antivert 25 mg b.i.d. 6. Protonix 40 mg b.i.d. PHYSICAL EXAM: Patient is alert, oriented x3. Pulse 70, blood pressure 96/64, respiration 18, temperature 97.8, pulse ox 94% on room air. HEENT: Conjunctivae normal. Oral mucosa moist. Neck is no jugular venous distention. No carotid bruit. No lymph node enlargement. CARDIOVASCULAR: S1, S2. RESPIRATORY: Breath sounds diminished in the bases. A few scattered rhonchi and crackles. ABDOMEN: Soft, obese. Ascites present. LEGS: No edema. NERVOUS SYSTEM: No focal deficit. LAB: INR 1.8 and calcium 8.8, hemoglobin is 12.6. ASSESSMENT: 1. Ascites status post abdominal paracentesis. multiple medical problems Admitted with multiple medical problems, elevated bilirubin levels and significant pain also had ascitic aspiration. The patient is feeling slightly better. Discussed with Hematology/Oncology and Gastroenterology. AST level is elevated. Will recommend to continue to monitor. Patient might require liver biopsy down the line. Prognosis guarded. Further recommendations to follow. MMODL / IJN: [id number] / [place]
--- NOTE | 2018-04-19 19:57 | CONS ---
CONSULTATION REASON FOR CONSULT: Renal failure, hyperkalemia. HISTORY OF PRESENT ILLNESS: The patient is a 72-year-old male who was admitted to the hospital, as his renal function had deteriorated on outpatient labs. He was found to have an elevated potassium as well. Bilirubin was up to 12.8. Serum creatinine was 4.3 mg/dL. Patient stated his lower extremities has been more swollen as outpatient. Patient has an underlying history of recent liver mass with high suspicion for underlying hepatocellular carcinoma. Patient has underlying liver cirrhosis as well. He was recently discharged from the hospital after paracentesis, which was his first paracentesis, on his last admission. Serum creatinine had gone up to around 2.2 mg/dL. At that time blood pressure was low, and it has improved. Previous creatinine on 03/26/2018 was 1.19. Currently heart rate has been about 90 to 100 per minute, systolic blood pressure about 118 to 128 mmHg. The patient has had some loose bowel movements. He denied any worsening diarrhea prior to this admission. PAST MEDICAL HISTORY: Recent diagnosis of liver mass with previous underlying liver cirrhosis with AFP greater than 100,000, status post diagnostic paracentesis done on his last admission on 04/12/2018. Patient also has type 2 diabetes, previous history of hypertension, gastroesophageal reflux disease, diverticulosis, history of Sage's esophagus. PAST SURGICAL HISTORY: 1. Cataract surgery. 2. EGD. 3. Colonoscopy. 4. [place] teeth extraction. SOCIAL HISTORY: Negative for smoking, drug abuse or alcohol abuse. PHYSICAL EXAMINATION: Patient is currently comfortable, awake. He is not in any acute distress. Blood pressure is 110/55, heart rate 94 per minute. He is afebrile. EXAMINATION OF THE HEART: S1, S2. EXAMINATION OF LUNGS: Bilateral breath sounds are heard. ABDOMEN: Soft, non-tender, distended. Examination of lower extremities shows edema 2+ bilaterally. 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 Labs show sodium of 135, potassium 5.1, CO2 of 13, BUN 91, serum creatinine 3.9. UA shows trace protein. ASSESSMENT: 1. Acute kidney injury; appears to be prerenal with improvement in renal function with IV fluids. The patient does have underlying edema secondary to his liver failure and portal hypertension. I will continue with the IV fluids but switch it to IV bicarb. Definitely the severe hyperbilirubinemia is also contributing to some degree of acute kidney injury. 2. Hyperkalemia on admission associated with acute kidney injury and acidosis, currently improved. 3. Non-gap metabolic acidosis secondary to gastrointestinal fluid loss and renal failure. Start patient on IV bicarb. Continue with oral sodium bicarb as well. 4. Liver mass with significantly elevated alpha fetoprotein with high suspicion for hepatocellular carcinoma. 5. History of Sage's esophagus. 6. Type 2 diabetes. 7. History of hypertension; blood pressure currently low. PLAN: Switch IV fluids to IV bicarb. Continue with oral sodium bicarb. Discontinue Norvasc. Repeat labs in a.m. Patient may benefit from small dose of loop diuretics as outpatient with close monitoring of renal function and volume status. Overall prognosis is guarded. MMODL / IJN: [id number] /
[2018-04-19 21:34] LABS: Glucose,Whole Blood 120 mg/dL (75-99)
[2018-04-19] MEDS ORDERED: PHYTONADIONE 5 MG in SODIUM CHLORIDE 0.9% 50 ML IVPB STA (23:18)
[2018-04-20] MEDS: BENZOCAINE/MENTHOL LOZENG 1 EACH LOZENGE MUCOUS MEM PRN ×3 (02:43→22:13)
[2018-04-20 06:39] LABS: Anisocytosis Slight; Basophils % (A) 1 %; Eosinophils # (A) 0.2 k/uL (0-0.7); Eosinophils % (A) 4 %; HCT 30.7 % (39.0-53.0); HGB 10.1 gm/dL (13.0-17.5); Lymphocytes # (A) 0.8 k/uL (1.0-4.8); Lymphocytes % (A) 15 %; MCH 34.7 pg (25.0-35.0); MCV 105.4 fL (80.0-100.0); Macrocytosis Moderate; Mean Platelet Volume 7.9; Monocytes # (A) 0.5 k/uL (0-1.0); Monocytes % (A) 9 %; Neutrophils # (A) 3.9 k/uL (1.3-7.7); Neutrophils % (A) 69 %; Platelet Count 104 k/uL (150-450); RBC 2.92 m/uL (4.30-5.90); WBC 5.7 k/uL (3.8-10.6)
[2018-04-20 06:45] LABS: Albumin 2.4 g/dL (3.5-5.0); Calcium 8.2 mg/dL (8.4-10.2); Magnesium 2.5 mg/dL (1.6-2.3); Potassium 4.6 mmol/L (3.5-5.1); Total Bilirubin 12.6 mg/dL (0.2-1.3); Total Protein 6.4 g/dL (6.3-8.2)
[2018-04-20] MEDS: INSULIN ASPART 100 UNIT/ML 1 ML 10 ML VIAL SQ SCH ×4 (06:46→21:20)
[2018-04-20 06:47] LABS: INR 1.7 (<1.2); Prothrombin Time 15.7 sec (9.0-12.0)
[2018-04-20] MEDS: PANTOPRAZOLE 40 MG TABLET PO SCH ×2 (06:48→18:05)
[2018-04-20 07:03] LABS: Glucose,Whole Blood 114 mg/dL (75-99)
[2018-04-20] MEDS: SYMBICORT 80-4.5 MCG INHALER INHALATION SCH (07:46)
[2018-04-20] MEDS: SODIUM BICARBONATE TAB 650 MG TAB PO SCH ×2 (08:10→21:08)
[2018-04-20] MEDS: CYANOCOBALAMIN 500 MCG TAB PO SCH (08:10)
[2018-04-20] MEDS: MECLIZINE 25 MG TAB PO SCH ×2 (08:10→21:08)
[2018-04-20] MEDS ORDERED: PHYTONADIONE 5 MG in SODIUM CHLORIDE 0.9% 50 ML IVPB STA (08:25)
[2018-04-20 11:15] LABS: Glucose,Whole Blood 264 mg/dL (75-99)
[2018-04-20] MEDS: DEXTROSE 5% IN WATER 1,000 ML with SODIUM BICARB (1 MEQ/ML) 100 ML IV SCH (12:01)
--- NOTE | 2018-04-20 14:12 | P.PN ---
Subjective Progress Note Date: 04/20/18 Principal diagnosis: This is a 72-year-old male seen in consultation with acute kidney injury. The cause of this likely is hepatorenal syndrome, in the absence of any other explanation. He has liver cirrhosis with high likelihood of hepatocellular carcinoma based on a high alpha-fetoprotein. In the hospital his creatinine has been getting worse. He is on IV fluids in spite of which his creatinine going up. The urine output is not well documented. Patient is deeply jaundiced, is waiting for a biopsy of his liver mass, apparently diagnosed with non-alcholic liver cirrhosis in November 2016 when he presented with GIB,had EGD/colonoscopy which revealed evidence of esophageal varices,CT scan of abdomen revealed cirrhotic liver and ascites, he had paracentesis done,work up was negative and it was felt to be related to fatty liver since he used to be over 300 pounds. Recently he was hospitalized with elevated AFP, MRI March 2018 reported liver masses presumed hepatocellular carcinoma. He underwent a diagnostic therapeutic paracentesis 04/12/2018 2.1 L removal Is also known with diabetes hypertension. The computed tomography scan and ultrasound done yesterday show small amount of ascites. There is no hydronephrosis. The blood pressure is somewhat low in the 100 to 110 range. He is not on any blood pressure medications. Objective - Vital Signs Vital signs: Vital Signs Temp 97.5 F L 04/20/18 11:27 Pulse 95 04/20/18 11:27 Resp 16 04/20/18 11:27 BP 114/57 04/20/18 11:27 Pulse Ox 92 L 04/20/18 11:27 Intake & Output 04/19/18 04/20/18 04/20/18 18:59 06:59 18:59 Intake Total 940 690 Output Total 200 Balance 940 -200 690 Weight 105.3 kg Intake: Intake, IV Titration 450 Amount Dextrose 5% in Water 1, 400 000 ml @ 50 mls/hr IV . Q22H MEGHANN with Sodium Bicarb (1 Meq/ml) 100 ml Rx#:[id number] Phytonadione 5 mg In 50 Sodium Chloride 0.9% 50 ml @ 100 mls/hr IVPB ONCE STA Rx#:[id number] Oral 940 240 Output: Urine 200 Other: Voiding Method Toilet Toilet Urinal # Voids 3 # Bowel Movements 1 On examination is awake alert oriented comfortable. He is deeply jaundiced. HEENT exam no JVP neck is supple no facial asymmetry Lungs are clear to auscultation with somewhat diminished air entry at bases. Heart sounds are unremarkable for any murmur rub gallop Abdomen is soft and distended with ascites. No rebound. No masses felt possibly splenomegaly but I'm not sure Extremity exam was 2+ edema Neuro logically awake alert oriented no asterixis - Labs CBC & Chem 7: 04/20/18 05:44 04/20/18 05:44 Labs: Abnormal Lab Results - Last 24 Hours (Table) 04/19/18 04/19/18 04/19/18 Range/Units 02:25 16:30 21:31 RBC (4.30-5.90) m/uL Hgb (13.0-17.5) gm/dL Hct (39.0-53.0) % MCV (80.0-100.0) fL RDW (11.5-15.5) % Plt Count (150-450) k/uL Lymphocytes # (1.0-4.8) k/uL PT (9.0-12.0) sec INR (<1.2) Carbon Dioxide (22-30) mmol/L BUN (9-20) mg/dL Creatinine (0.66-1.25) mg/dL Glucose (74-99) mg/dL POC Glucose (mg/dL) 109 H 120 H (75-99) mg/dL Hemoglobin A1c 6.1 H (4.0-6.0) % Calcium (8.4-10.2) mg/dL Magnesium (1.6-2.3) mg/dL Total Bilirubin (0.2-1.3) mg/dL AST (17-59) U/L Albumin (3.5-5.0) g/dL 04/20/18 04/20/18 04/20/18 Range/Units 05:44 05:44 05:44 RBC 2.92 L (4.30-5.90) m/uL Hgb 10.1 L (13.0-17.5) gm/dL Hct 30.7 L (39.0-53.0) % MCV 105.4 H (80.0-100.0) fL RDW 17.0 H (11.5-15.5) % Plt Count 104 L (150-450) k/uL Lymphocytes # 0.8 L (1.0-4.8) k/uL PT 15.7 H (9.0-12.0) sec INR 1.7 H (<1.2) Carbon Dioxide 17 L (22-30) mmol/L BUN 99 H (9-20) mg/dL Creatinine 5.21 H (0.66-1.25) mg/dL Glucose 111 H (74-99) mg/dL POC Glucose (mg/dL) (75-99) mg/dL Hemoglobin A1c (4.0-6.0) % Calcium 8.2 L (8.4-10.2) mg/dL Magnesium 2.5 H (1.6-2.3) mg/dL Total Bilirubin 12.6 H (0.2-1.3) mg/dL AST 283 H (17-59) U/L Albumin 2.4 L (3.5-5.0) g/dL 04/20/18 04/20/18 Range/Units 06:44 11:12 RBC (4.30-5.90) m/uL Hgb (13.0-17.5) gm/dL Hct (39.0-53.0) % MCV (80.0-100.0) fL RDW (11.5-15.5) % Plt Count (150-450) k/uL Lymphocytes # (1.0-4.8) k/uL PT (9.0-12.0) sec INR (<1.2) Carbon Dioxide (22-30) mmol/L BUN (9-20) mg/dL Creatinine (0.66-1.25) mg/dL Glucose (74-99) mg/dL POC Glucose (mg/dL) 114 H 264 H (75-99) mg/dL Hemoglobin A1c (4.0-6.0) % Calcium (8.4-10.2) mg/dL Magnesium (1.6-2.3) mg/dL Total Bilirubin (0.2-1.3) mg/dL AST (17-59) U/L Albumin (3.5-5.0) g/dL Microbiology - Last 24 Hours (Table) 04/19/18 02:24 Urine Culture - Final Urine,Voided 04/19/18 02:25 Blood Culture - Preliminary Blood No Growth after 24 hours Assessment and Plan Assessment: Impression 1. Acute kidney injury from hepatorenal syndrome. Baseline creatinine is 1.19 on 03/26/2018. Previously was 0.7 dated 01/05/2017. 2. Cirrhosis nonalcoholic , B surface antigen and hep C antibody is negative. 3. High alpha-fetoprotein likely liver cancer but computed tomography scan is not showing any mass lesion. 4. Diabetes mellitus. 5. Mild degree of gap and non-gap acidosis secondary to acute kidney injury. Recommendation. 1. Check urine osmolality and sodium and creatinine did 2. Check postvoid residual. 3. Start the hepatorenal syndrome cocktail with Midrin 10 mg 3 times a day, albumin 25 g 3 times a day and octreotide 100 g 3 times a day. 4. Discussed with patient the possibility of requiring renal replacement therapy 2 days.
[2018-04-20] MEDS: ALBUMIN HUMAN 25% 50 ML in EMPTY BAG 1 BAG IVPB SCH ×3 (15:40→23:55)
[2018-04-20] MEDS: OCTREOTIDE 100 MCG/ML INJ SQ SCH ×2 (15:42→23:54)
[2018-04-20 16:46] LABS: Glucose,Whole Blood 108 mg/dL (75-99)
[2018-04-20] MEDS: MIDODRINE 5 MG TAB PO SCH (18:05)
--- NOTE | 2018-04-20 18:44 | P.PN ---
Subjective Progress Note Date: 04/20/18 Principal diagnosis: Hyperkalemia and acute kidney injury Mr. 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 Patient was having workup done for liver cirrhosis, he had EGD colonoscopy which revealed evidence of diffuse esophageal varices and CAT scan of the abdomen with the cirrhotic liver and ascites. Patient had 1.4 L of paracentesis fluid removed yesterday. Patient also had elevated AFP and MRI in March 2018 reported liver mass presumed to be hepatocellular carcinoma. The patient also had hyperkalemia and acute kidney injury at the time of admission thought to be cyclic due to hepatorenal syndrome and currently being followed by nephrology. Today the patient is lying in bed appears to be tearful as he is worried about his health and concerned about being on dialysis as this was discussed by nephrology today. Patient doesn't appear to be depressed but tearful and concerned about his disease. On review of systems patient denies having any chest pain, difficulty in breathing, cough. States abdominal discomfort is much better after the paracentesis. No dysuria or hematuria. No headache nausea vomiting or diarrhea. Patient's medications have been reviewed. Objective - Vital Signs Vital signs: Vital Signs Temp 97.5 F L 04/20/18 11:27 Pulse 95 04/20/18 11:27 Resp 16 04/20/18 11:27 BP 114/57 04/20/18 11:27 Pulse Ox 92 L 04/20/18 11:27 Intake & Output 04/19/18 04/20/18 04/20/18 18:59 06:59 18:59 Intake Total 940 690 Output Total 200 Balance 940 -200 690 Weight 105.3 kg Intake: Intake, IV Titration 450 Amount Dextrose 5% in Water 1, 400 000 ml @ 50 mls/hr IV . Q22H MEGHANN with Sodium Bicarb (1 Meq/ml) 100 ml Rx#:[id number] Phytonadione 5 mg In 50 Sodium Chloride 0.9% 50 ml @ 100 mls/hr IVPB ONCE STA Rx#:[id number] Oral 940 240 Output: Urine 200 Other: Voiding Method Toilet Toilet Urinal # Voids 3 # Bowel Movements 1 - Exam GENERAL EXAM GEN. APPEARANCE: alert, in no apparent distress HEAD EXAM: atraumatic, normocephalic, normal inspection EYE EXAM: normal appearance, PERRL, EOMI. Absent: scleral icterus, conjunctival injection, periorbital swelling ENT EXAM: normal exam, mucous membranes moist NECK EXAM: normal inspection. Absent: tenderness, meningismus, full ROM, lymphadenopathy RESPIRATORY EXAM: Decreased breath sounds bilaterally in the lower lung bases CARDIOVASCULAR EXAM: regular rate, normal rhythm, normal heart sounds. Absent : systolic murmur, diastolic murmur, rubs, gallop, clicks GI/ABDOMINAL EXAM: Distended with moderate arthritis EXTREMITIES EXAM: Mild pitting edema NEUROLOGICAL EXAM: alert, oriented X3, no focal neurological deficits PSYCHIATRIC EXAM: Tearful and anxious - Labs CBC & Chem 7: 04/20/18 05:44 04/20/18 05:44 Labs: Abnormal Lab Results - Last 24 Hours (Table) 04/19/18 04/19/18 04/19/18 Range/Units 02:25 16:30 21:31 RBC (4.30-5.90) m/uL Hgb (13.0-17.5) gm/dL Hct (39.0-53.0) % MCV (80.0-100.0) fL RDW (11.5-15.5) % Plt Count (150-450) k/uL Lymphocytes # (1.0-4.8) k/uL PT (9.0-12.0) sec INR (<1.2) Carbon Dioxide (22-30) mmol/L BUN (9-20) mg/dL Creatinine (0.66-1.25) mg/dL Glucose (74-99) mg/dL POC Glucose (mg/dL) 109 H 120 H (75-99) mg/dL Hemoglobin A1c 6.1 H (4.0-6.0) % Calcium (8.4-10.2) mg/dL Magnesium (1.6-2.3) mg/dL Total Bilirubin (0.2-1.3) mg/dL AST (17-59) U/L Albumin (3.5-5.0) g/dL 04/20/18 04/20/18 04/20/18 Range/Units 05:44 05:44 05:44 RBC 2.92 L (4.30-5.90) m/uL Hgb 10.1 L (13.0-17.5) gm/dL Hct 30.7 L (39.0-53.0) % MCV 105.4 H (80.0-100.0) fL RDW 17.0 H (11.5-15.5) % Plt Count 104 L (150-450) k/uL Lymphocytes # 0.8 L (1.0-4.8) k/uL PT 15.7 H (9.0-12.0) sec INR 1.7 H (<1.2) Carbon Dioxide 17 L (22-30) mmol/L BUN 99 H (9-20) mg/dL Creatinine 5.21 H (0.66-1.25) mg/dL Glucose 111 H (74-99) mg/dL POC Glucose (mg/dL) (75-99) mg/dL Hemoglobin A1c (4.0-6.0) % Calcium 8.2 L (8.4-10.2) mg/dL Magnesium 2.5 H (1.6-2.3) mg/dL Total Bilirubin 12.6 H (0.2-1.3) mg/dL AST 283 H (17-59) U/L Albumin 2.4 L (3.5-5.0) g/dL 04/20/18 04/20/18 Range/Units 06:44 11:12 RBC (4.30-5.90) m/uL Hgb (13.0-17.5) gm/dL Hct (39.0-53.0) % MCV (80.0-100.0) fL RDW (11.5-15.5) % Plt Count (150-450) k/uL Lymphocytes # (1.0-4.8) k/uL PT (9.0-12.0) sec INR (<1.2) Carbon Dioxide (22-30) mmol/L BUN (9-20) mg/dL Creatinine (0.66-1.25) mg/dL Glucose (74-99) mg/dL POC Glucose (mg/dL) 114 H 264 H (75-99) mg/dL Hemoglobin A1c (4.0-6.0) % Calcium (8.4-10.2) mg/dL Magnesium (1.6-2.3) mg/dL Total Bilirubin (0.2-1.3) mg/dL AST (17-59) U/L Albumin (3.5-5.0) g/dL Microbiology - Last 24 Hours (Table) 04/19/18 02:24 Urine Culture - Final Urine,Voided 04/19/18 02:25 Blood Culture - Preliminary Blood No Growth after 24 hours Assessment and Plan Assessment: ASSESSMENT Acute kidney injury most likely secondary to hepatorenal syndrome Hyperkalemia resolved Ascites is secondary to cirrhosis of the liver Nonalcoholic liver cirrhosis Elevated bilirubin 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 Nephrology on board and following the patient closely. Patient's infectious hepatitis panel has been negative for hep B and hep C. Probable liver biopsy on Sunday. Overall prognosis is poor. Further recommendations to follow depending on the progress of the patient.
[2018-04-20 21:40] LABS: Glucose,Whole Blood 152 mg/dL (75-99)
[2018-04-21 05:15] LABS: Anisocytosis Slight; Basophils % (A) 1 %; Eosinophils # (A) 0.3 k/uL (0-0.7); Eosinophils % (A) 5 %; HCT 30.5 % (39.0-53.0); Lymphocytes % (A) 17 %; MCH 34.5 pg (25.0-35.0); MCHC 32.9 g/dL (31.0-37.0); MCV 104.9 fL (80.0-100.0); Macrocytosis Moderate; Monocytes # (A) 0.6 k/uL (0-1.0); Monocytes % (A) 10 %; Neutrophils # (A) 3.9 k/uL (1.3-7.7); Neutrophils % (A) 64 %; Platelet Count 105 k/uL (150-450); RDW 16.9 % (11.5-15.5)
[2018-04-21 05:28] LABS: Albumin 2.9 g/dL (3.5-5.0); Calcium 8.4 mg/dL (8.4-10.2); Potassium 5.1 mmol/L (3.5-5.1); Total Bilirubin 13.7 mg/dL (0.2-1.3); Total Protein 6.8 g/dL (6.3-8.2)
[2018-04-21] MEDS: BENZOCAINE/MENTHOL LOZENG 1 EACH LOZENGE MUCOUS MEM PRN ×3 (05:29→22:50)
[2018-04-21 05:51] LABS: Glucose,Whole Blood 142 mg/dL (75-99)
[2018-04-21] MEDS: INSULIN ASPART 100 UNIT/ML 1 ML 10 ML VIAL SQ SCH ×4 (06:47→21:21)
[2018-04-21] MEDS: PANTOPRAZOLE 40 MG TABLET PO SCH ×2 (06:47→17:00)
[2018-04-21] MEDS: MIDODRINE 5 MG TAB PO SCH ×3 (06:48→17:00)
[2018-04-21] MEDS: SYMBICORT 80-4.5 MCG INHALER INHALATION SCH ×2 (07:05→20:51)
[2018-04-21] MEDS: ALBUMIN HUMAN 25% 50 ML in EMPTY BAG 1 BAG IVPB SCH ×7 (08:07→23:43)
[2018-04-21] MEDS: CYANOCOBALAMIN 500 MCG TAB PO SCH (08:08)
[2018-04-21] MEDS: SODIUM BICARBONATE TAB 650 MG TAB PO SCH ×2 (08:08→21:21)
[2018-04-21] MEDS: MECLIZINE 25 MG TAB PO SCH ×2 (08:08→21:19)
[2018-04-21] MEDS: OCTREOTIDE 100 MCG/ML INJ SQ SCH ×3 (08:23→23:44)
[2018-04-21] MEDS: DEXTROSE 5% IN WATER 1,000 ML with SODIUM BICARB (1 MEQ/ML) 100 ML IV SCH (12:12)
[2018-04-21 12:35] LABS: Glucose,Whole Blood 141 mg/dL (75-99)
--- NOTE | 2018-04-21 14:07 | P.PN ---
Subjective Progress Note Date: 04/21/18 Principal diagnosis: This is a 72-year-old male seen in consultation with acute kidney injury. The cause of this likely is hepatorenal syndrome, in the absence of any other explanation. He has liver cirrhosis with high likelihood of hepatocellular carcinoma based on a extremely high alpha-fetoprotein, and a computed tomography scan is suggestive of a mass in the liver. In the hospital his creatinine has been getting worse. He is on IV fluids in spite of which his creatinine going up. He was started on the hepatorenal syndrome cocktail yesterday 04/20/2018. He is feeling somewhat better says his urine output has picked up. Creatinine continues to go although. Patient is deeply jaundiced, is waiting for a biopsy of his liver mass, apparently diagnosed with non-alcholic liver cirrhosis in November 2016 when he presented with GIB,had EGD/colonoscopy which revealed evidence of esophageal varices,CT scan of abdomen revealed cirrhotic liver and ascites, he had paracentesis done,work up was negative and it was felt to be related to fatty liver since he used to be over 300 pounds. Recently he was hospitalized with elevated AFP, MRI March 2018 reported liver masses presumed hepatocellular carcinoma. He underwent a diagnostic therapeutic paracentesis 04/12/2018 2.1 L removal Is also known with diabetes hypertension. The computed tomography scan and ultrasound done yesterday show small amount of ascites. There is no hydronephrosis. Objective - Vital Signs Vital signs: Vital Signs Temp 97.6 F 04/21/18 11:31 Pulse 90 04/21/18 11:31 Resp 18 04/21/18 11:31 BP 114/54 04/21/18 11:31 Pulse Ox 90 L 04/21/18 11:31 Intake & Output 04/20/18 04/21/18 04/21/18 18:59 06:59 18:59 Intake Total 808 768 240 Output Total 100 200 200 Balance 708 568 40 Weight 108.3 kg Intake: Intake, IV Titration 450 50 Amount Dextrose 5% in Water 1, 400 50 000 ml @ 50 mls/hr IV . Q22H MEGHANN with Sodium Bicarb (1 Meq/ml) 100 ml Rx#:[id number] Phytonadione 5 mg In 50 Sodium Chloride 0.9% 50 ml @ 100 mls/hr IVPB ONCE STA Rx#:[id number] Oral 358 718 240 Output: Urine 100 200 200 Other: Voiding Method Toilet Toilet On examination his awake alert oriented jaundice HEENT exam no JVP neck is supple no facial asymmetry Lungs are clear to auscultation fair air entry bilaterally No adventitious sounds were heard Heart sounds are unremarkable for any murmur rub gallop Abdomen is soft nontender slightly distended probably has mild ascites. Extremity exam was reveals mild edema There is some bruising in his lower extremities Neurologically awake alert oriented. No asterixis noted - Labs CBC & Chem 7: 04/21/18 04:25 04/21/18 04:25 Labs: Abnormal Lab Results - Last 24 Hours (Table) 04/20/18 04/20/18 04/21/18 Range/Units 16:44 21:15 04:25 RBC 2.90 L (4.30-5.90) m/uL Hgb 10.0 L (13.0-17.5) gm/dL Hct 30.5 L (39.0-53.0) % MCV 104.9 H (80.0-100.0) fL RDW 16.9 H (11.5-15.5) % Plt Count 105 L (150-450) k/uL Sodium (137-145) mmol/L Carbon Dioxide (22-30) mmol/L BUN (9-20) mg/dL Creatinine (0.66-1.25) mg/dL Glucose (74-99) mg/dL POC Glucose (mg/dL) 108 H 152 H (75-99) mg/dL Total Bilirubin (0.2-1.3) mg/dL AST (17-59) U/L Albumin (3.5-5.0) g/dL 04/21/18 04/21/18 04/21/18 Range/Units 04:25 05:49 11:56 RBC (4.30-5.90) m/uL Hgb (13.0-17.5) gm/dL Hct (39.0-53.0) % MCV (80.0-100.0) fL RDW (11.5-15.5) % Plt Count (150-450) k/uL Sodium 135 L (137-145) mmol/L Carbon Dioxide 19 L (22-30) mmol/L BUN 105 H* (9-20) mg/dL Creatinine 5.92 H (0.66-1.25) mg/dL Glucose 115 H (74-99) mg/dL POC Glucose (mg/dL) 142 H 141 H (75-99) mg/dL Total Bilirubin 13.7 H (0.2-1.3) mg/dL AST 280 H (17-59) U/L Albumin 2.9 L (3.5-5.0) g/dL Microbiology - Last 24 Hours (Table) 04/19/18 02:25 Blood Culture - Preliminary Blood No Growth after 48 hours 04/19/18 02:24 Urine Culture - Final Urine,Voided Assessment and Plan Assessment: Impression 1. Acute kidney injury from hepatorenal syndrome. Baseline creatinine is 1.19 on 03/26/2018. Previously was 0.7 dated 01/05/2017. His creatinine continues to go up. He is currently on hepatorenal syndrome cocktail started yesterday 2. Cirrhosis nonalcoholic , B surface antigen and hep C antibody is negative. 3. High alpha-fetoprotein (greater than 100,000 ) likely liver cancer but computed tomography scan is only suggestive of a mass in the liver 4. Diabetes mellitus. 5. Mild degree of gap and non-gap acidosis secondary to acute kidney injury. Recommendation. 1. Check urine osmolality and sodium and creatinine ordered yesterday but not done 2. continue the cocktail for hepatorenal syndrome. ( Midrin 10 mg 3 times a day, albumin 25 g 3 times a day and octreotide 100 g 3 times a day. 3. He'll need a quick confirmation of the possible hepatocellular carcinoma with the FNA or if took a biopsy of his liver. If it is negative we will have to look at possibly biopsying his kidney. 4. Discussed with patient the possibility of requiring renal replacement therapy
[2018-04-21 17:24] LABS: Glucose,Whole Blood 131 mg/dL (75-99)
--- NOTE | 2018-04-21 17:59 | P.PN ---
Subjective Progress Note Date: 04/21/18 Principal diagnosis: Hyperkalemia and acute kidney injury Mr. 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 Patient was having workup done for liver cirrhosis, he had EGD colonoscopy which revealed evidence of diffuse esophageal varices and CAT scan of the abdomen with the cirrhotic liver and ascites. Patient had 1.4 L of paracentesis fluid removed yesterday. Patient also had elevated AFP and MRI in March 2018 reported liver mass presumed to be hepatocellular carcinoma. The patient also had hyperkalemia and acute kidney injury at the time of admission thought to be cyclic due to hepatorenal syndrome and currently being followed by nephrology. On 04/21/18 - Patient is lying in bed appears to be tearful as he is worried about his health and concerned about getting a liver biopsy tomorrow. Patient doesn't appear to be depressed but tearful and concerned about his disease. On review of systems patient denies having any chest pain, difficulty in breathing , cough. States abdominal discomfort is much better after the paracentesis. No dysuria or hematuria. No headache nausea vomiting or diarrhea. Patient's medications have been reviewed. Objective - Vital Signs Vital signs: Vital Signs Temp 97.5 F L 04/21/18 16:00 Pulse 87 04/21/18 16:00 Resp 18 04/21/18 16:00 BP 119/58 04/21/18 16:00 Pulse Ox 90 L 04/21/18 16:00 Intake & Output 04/20/18 04/21/18 04/21/18 18:59 06:59 18:59 Intake Total 808 768 240 Output Total 100 200 200 Balance 708 568 40 Weight 108.3 kg Intake: Intake, IV Titration 450 50 Amount Dextrose 5% in Water 1, 400 50 000 ml @ 50 mls/hr IV . Q22H MEGHANN with Sodium Bicarb (1 Meq/ml) 100 ml Rx#:[id number] Phytonadione 5 mg In 50 Sodium Chloride 0.9% 50 ml @ 100 mls/hr IVPB ONCE STA Rx#:[id number] Oral 358 718 240 Output: Urine 100 200 200 Other: Voiding Method Toilet Toilet - Exam GEN. APPEARANCE: alert, in no apparent distress HEAD EXAM: atraumatic, normocephalic, normal inspection EYE EXAM: Positive for icterus ENT EXAM: normal exam, mucous membranes moist NECK EXAM: normal inspection. Absent: tenderness, meningismus, full ROM, lymphadenopathy RESPIRATORY EXAM: Decreased breath sounds bilaterally in the lower lung bases CARDIOVASCULAR EXAM: regular rate, normal rhythm, normal heart sounds. Absent : systolic murmur, diastolic murmur, rubs, gallop, clicks GI/ABDOMINAL EXAM: Distended with moderate arthritis EXTREMITIES EXAM: Mild pitting edema NEUROLOGICAL EXAM: alert, oriented X3, no focal neurological deficits PSYCHIATRIC EXAM: Tearful and anxious - Labs CBC & Chem 7: 04/21/18 04:25 04/21/18 04:25 Labs: Abnormal Lab Results - Last 24 Hours (Table) 04/20/18 04/21/18 04/21/18 Range/Units 21:15 04:25 04:25 RBC 2.90 L (4.30-5.90) m/uL Hgb 10.0 L (13.0-17.5) gm/dL Hct 30.5 L (39.0-53.0) % MCV 104.9 H (80.0-100.0) fL RDW 16.9 H (11.5-15.5) % Plt Count 105 L (150-450) k/uL Sodium 135 L (137-145) mmol/L Carbon Dioxide 19 L (22-30) mmol/L BUN 105 H* (9-20) mg/dL Creatinine 5.92 H (0.66-1.25) mg/dL Glucose 115 H (74-99) mg/dL POC Glucose (mg/dL) 152 H (75-99) mg/dL Total Bilirubin 13.7 H (0.2-1.3) mg/dL AST 280 H (17-59) U/L Albumin 2.9 L (3.5-5.0) g/dL 04/21/18 04/21/18 04/21/18 Range/Units 05:49 11:56 17:03 RBC (4.30-5.90) m/uL Hgb (13.0-17.5) gm/dL Hct (39.0-53.0) % MCV (80.0-100.0) fL RDW (11.5-15.5) % Plt Count (150-450) k/uL Sodium (137-145) mmol/L Carbon Dioxide (22-30) mmol/L BUN (9-20) mg/dL Creatinine (0.66-1.25) mg/dL Glucose (74-99) mg/dL POC Glucose (mg/dL) 142 H 141 H 131 H (75-99) mg/dL Total Bilirubin (0.2-1.3) mg/dL AST (17-59) U/L Albumin (3.5-5.0) g/dL Microbiology - Last 24 Hours (Table) 04/19/18 02:25 Blood Culture - Preliminary Blood No Growth after 48 hours Assessment and Plan Assessment: ASSESSMENT Acute kidney injury most likely secondary to hepatorenal syndrome Hyperkalemia resolved Ascites is secondary to cirrhosis of the liver Nonalcoholic liver cirrhosis Elevated bilirubin 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 Nephrology on board and discussed with Dr. Valdez today regarding the need for dialysis - if the patient's kidney function does not improve in the next couple of days he might be started on dialysis. Patient's infectious hepatitis panel has been negative for hep B and hep C. Probable liver biopsy on Sunday. Overall prognosis is poor. Further recommendations to follow depending on the progress of the patient.
[2018-04-21 21:17] LABS: Glucose,Whole Blood 129 mg/dL (75-99)
[2018-04-21] MEDS: ALPRAZolam 0.25 MG TAB PO PRN (22:50)
[2018-04-22] MEDS: DEXTROSE 5% IN WATER 1,000 ML with SODIUM BICARB (1 MEQ/ML) 100 ML IV SCH (04:59)
[2018-04-22 06:14] LABS: Glucose,Whole Blood 90 mg/dL (75-99)
[2018-04-22] MEDS: INSULIN ASPART 100 UNIT/ML 1 ML 10 ML VIAL SQ SCH ×4 (06:20→21:41)
[2018-04-22] MEDS: PANTOPRAZOLE 40 MG TABLET PO SCH ×2 (06:22→17:04)
[2018-04-22] MEDS: MIDODRINE 5 MG TAB PO SCH ×3 (06:22→17:04)
[2018-04-22 07:18] LABS: Anisocytosis Slight; Basophils % (A) 0 %; Eosinophils # (A) 0.3 k/uL (0-0.7); Eosinophils % (A) 4 %; HCT 32.2 % (39.0-53.0); HGB 10.7 gm/dL (13.0-17.5); Lymphocytes # (A) 1.1 k/uL (1.0-4.8); Lymphocytes % (A) 16 %; MCH 34.8 pg (25.0-35.0); MCHC 33.3 g/dL (31.0-37.0); MCV 104.5 fL (80.0-100.0); Macrocytosis Moderate; Mean Platelet Volume 7.6; Monocytes # (A) 0.7 k/uL (0-1.0); Monocytes % (A) 9 %; Neutrophils # (A) 4.7 k/uL (1.3-7.7); Neutrophils % (A) 67 %; Platelet Count 120 k/uL (150-450); RBC 3.09 m/uL (4.30-5.90); RDW 16.8 % (11.5-15.5)
[2018-04-22 07:25] LABS: Albumin 3.1 g/dL (3.5-5.0); Calcium 8.4 mg/dL (8.4-10.2); INR 1.8 (<1.2); Partial Thromboplastin Time 39.7 sec (22.0-30.0); Potassium 4.9 mmol/L (3.5-5.1); Prothrombin Time 16.3 sec (9.0-12.0); Total Protein 6.8 g/dL (6.3-8.2)
[2018-04-22 07:32] LABS: Total Bilirubin 16.4 mg/dL (0.2-1.3)
[2018-04-22] MEDS: SYMBICORT 80-4.5 MCG INHALER INHALATION SCH ×2 (08:28→21:01)
[2018-04-22] MEDS: CYANOCOBALAMIN 500 MCG TAB PO SCH (08:30)
[2018-04-22] MEDS: MECLIZINE 25 MG TAB PO SCH ×2 (08:30→19:42)
[2018-04-22] MEDS: SODIUM BICARBONATE TAB 650 MG TAB PO SCH ×2 (08:30→19:42)
[2018-04-22] MEDS: ALBUMIN HUMAN 25% 50 ML in EMPTY BAG 1 BAG IVPB SCH ×7 (10:16→23:47)
[2018-04-22] MEDS: OCTREOTIDE 100 MCG/ML INJ SQ SCH ×3 (10:17→23:30)
--- NOTE | 2018-04-22 11:07 | P.PN ---
Subjective Progress Note Date: 04/22/18 Principal diagnosis: Jaundice renal failure and hepatorenal syndrome liver masses 72-year-old male with presumed HCC AFP greater than 100,000 with liver masses per MRI presents with worsening renal failure and jaundice. Status post paracentesis Sunday 1.5 L removed. Patient received vitamin K over the weekend for coagulopathy. Possible liver biopsy today. Present INR 1.8. Total bilirubin increased to 16.4. Creatinine increased to 6.6. Objective - Vital Signs Vital signs: Vital Signs Temp 97.8 F 04/22/18 08:00 Pulse 77 04/22/18 08:00 Resp 18 04/22/18 08:00 BP 117/58 04/22/18 08:00 Pulse Ox 93 L 04/22/18 08:30 Intake & Output 04/21/18 04/22/18 04/22/18 18:59 06:59 18:59 Intake Total 358 600 100 Output Total 200 300 Balance 158 300 100 Weight 108.9 kg Intake: Intake, IV Titration 600 Amount Albumin Human 25% 50 ml 50 In Empty Bag 1 bag @ 200 mls/hr IVPB Q8H MEGHANN Rx#: [id number] Albumin Human 25% 50 ml 50 In Empty Bag 1 bag @ 200 mls/hr IVPB Q8H MEGHANN Rx#: [id number] Dextrose 5% in Water 1, 500 000 ml @ 50 mls/hr IV . Q22H MEGHANN with Sodium Bicarb (1 Meq/ml) 100 ml Rx#:[id number] Oral 358 100 Output: Urine 200 300 Other: Voiding Method Toilet Toilet Toilet # Voids 0 - Exam General appearance: The patient is alert, oriented, in no acute distress. Jaundice. HET: Head is normocephalic and atraumatic. Pupils are equal and reactive. Sclerae icterus. Oropharynx is clear without lesions. Neck: Supple without lymphadenopathy. Trachea midline. Heart: S1 S2. Regular rate and rhythm. Lungs: No crackles or wheezes are heard. Abdomen: Soft, nontender, mildly bloated with bowel sounds. No peritoneal signs. No palpable organomegaly or masses. Extremities: Normal skin color and turgor. No cyanosis, rash, ulceration, clubbing, or edema. Radial and pedal pulses are 2/4 bilaterally. Neurological: No focal deficits. Strength and sensation are grossly intact. - Labs CBC & Chem 7: 04/22/18 06:53 04/22/18 06:53 Labs: Abnormal Lab Results - Last 24 Hours (Table) 04/21/18 04/21/18 04/21/18 Range/Units 11:56 17:03 21:15 RBC (4.30-5.90) m/uL Hgb (13.0-17.5) gm/dL Hct (39.0-53.0) % MCV (80.0-100.0) fL RDW (11.5-15.5) % Plt Count (150-450) k/uL PT (9.0-12.0) sec INR (<1.2) APTT (22.0-30.0) sec Sodium (137-145) mmol/L Carbon Dioxide (22-30) mmol/L BUN (9-20) mg/dL Creatinine (0.66-1.25) mg/dL POC Glucose (mg/dL) 141 H 131 H 129 H (75-99) mg/dL Total Bilirubin (0.2-1.3) mg/dL AST (17-59) U/L Albumin (3.5-5.0) g/dL 04/22/18 04/22/18 04/22/18 Range/Units 06:53 06:53 06:53 RBC 3.09 L (4.30-5.90) m/uL Hgb 10.7 L (13.0-17.5) gm/dL Hct 32.2 L (39.0-53.0) % MCV 104.5 H (80.0-100.0) fL RDW 16.8 H (11.5-15.5) % Plt Count 120 L (150-450) k/uL PT 16.3 H (9.0-12.0) sec INR 1.8 H (<1.2) APTT 39.7 H (22.0-30.0) sec Sodium 134 L (137-145) mmol/L Carbon Dioxide 20 L (22-30) mmol/L BUN 106 H* (9-20) mg/dL Creatinine 6.69 H (0.66-1.25) mg/dL POC Glucose (mg/dL) (75-99) mg/dL Total Bilirubin 16.4 H* (0.2-1.3) mg/dL AST 208 H (17-59) U/L Albumin 3.1 L (3.5-5.0) g/dL Microbiology - Last 24 Hours (Table) 04/19/18 02:25 Blood Culture - Preliminary Blood No Growth after 72 hours Assessment and Plan (1) Jaundice Narrative/Plan: 72-year-old gentleman with presumed hepatocellular carcinoma with AFP greater than 100,000 liver lesions per NE presents with worsening renal function acute kidney injury possible hepatorenal syndrome and worsening jaundice and ascites. Status post-therapeutic diagnostic paracentesis a week ago with negative cytology. Jaundice is secondary to intrahepatic malignancy possible component of decompensated nonalcoholic liver cirrhosis. Current Visit: Yes Status: Acute Code(s): R17 - UNSPECIFIED JAUNDICE SNOMED Code(s): 66797778 (2) Acute renal failure Current Visit: Yes Status: Acute Code(s): N17.9 - ACUTE KIDNEY FAILURE, UNSPECIFIED SNOMED Code(s): 31252076 (3) Liver cirrhosis Current Visit: Yes Status: Acute Code(s): K74.60 - UNSPECIFIED CIRRHOSIS OF LIVER SNOMED Code(s): 25269063 (4) Abnormal MRI, liver Current Visit: No Status: Acute Code(s): R93.2 - ABNORMAL FINDINGS ON DX IMAGING OF LIVER AND BILIARY TRACT SNOMED Code(s): 203182349 (5) Elevated AFP Current Visit: No Status: Acute Code(s): R77.2 - ABNORMALITY OF ALPHAFETOPROTEIN SNOMED Code(s): 667192663 (6) Coagulopathy Current Visit: Yes Status: Acute Code(s): D68.9 - COAGULATION DEFECT, UNSPECIFIED SNOMED Code(s): 18850437 Plan: 1. Case was discussed with oncology nephrology and interventional radiology possible liver biopsy today patient will require FFP prior to biopsy. Renal low -sodium diet. Daily CMP/INR. We'll defer to diuretic therapy to nephrology service; spoke with Dr. Granger dialysis catheter a possibility. Will follow closely with you. Assessment and plan a care discussed with Dr. Black
[2018-04-22 11:12] LABS: Glucose,Whole Blood 106 mg/dL (75-99)
[2018-04-22 14:51] VITALS: BMI 32.5
[2018-04-22] MEDS: ALPRAZolam 0.25 MG TAB PO PRN ×2 (14:58→19:43)
--- NOTE | 2018-04-22 16:27 | PN ---
PROGRESS NOTE Patient is seen for followup for acute kidney injury. Over the weekend his renal function has worsened. Serum creatinine is up to 6.69 today. Overall patient states he feels about the same. He is feeling weak. He states he is voiding more urine; however, 24-hour urine is documented at 500 mL. Patient is currently maintained on cocktail for hepatorenal syndrome. He has been talked to regarding dialysis. This morning patient is tearful. He states he is scared and "I do not want to ." Patient is also scheduled for a biopsy of the liver mass later on this afternoon. On examination this morning, blood pressure is 109/58, heart rate 83 per minute. He is afebrile. EXAMINATION OF THE HEART: S1, S2. EXAMINATION OF LUNGS: Decreased breath sounds in the bases. ABDOMEN: Distended, soft, nontender. Examination of lower extremity shows edema 2+ bilaterally. [employer] exam is grossly intact. Labs show sodium 134, potassium 4.9, BUN 106, serum creatinine 6.69, hemoglobin 10.7 g/dL. Bilirubin is at 16.4. ASSESSMENT: 1. Acute kidney injury; appears to be hepatorenal syndrome. Currently maintained on midodrine, albumin and Sandostatin. I will check a random urine sodium. Patient's urine output remains on the lower side. He is agreeable to dialysis, which we will need to start, given his worsening renal failure. Today there is no urgency to start renal replacement therapy. We can proceed with vascular surgery consult and placement of dialysis catheter, particularly if patient will be getting the vitamin K and FFP for the liver biopsy. 2. Liver mass with significantly elevated alpha fetoprotein, highly suggestive of hepatocellular cancer, scheduled for liver biopsy, possibly today. 3. Severe hyperbilirubinemia. 4. Ascites. 5. Metabolic acidosis, currently maintained on IV bicarb. PLAN: Continue with current treatment. Proceed with vascular surgery consult and dialysis catheter placement. Plan for hemodialysis in a.m. unless there is significant improvement in renal function. Overall prognosis is guarded. MMODL / IJN: [id number] /
[2018-04-22 16:51] LABS: Glucose,Whole Blood 103 mg/dL (75-99)
[2018-04-22] MEDS ORDERED: MENTHOL (NICE) LOZENGE MUCOUS MEM PRN (17:34)
--- NOTE | 2018-04-22 18:24 | CONS ---
CONSULTATION This is a 72-year-old gentleman who has been admitted with history of acute and chronic renal failure. I was consulted for placement of dialysis catheter. Patient has been diagnosed with hepatocellular carcinoma of the liver. Patient was going to have a biopsy done. Because BUN and creatinine were high and INR was 1.8, they held the biopsy and they want me to place a catheter so patient can be dialyzed. Patient also has a history of cirrhosis of the liver. MEDICAL HISTORY: 1. History of type 2 diabetes. 2. History of hypertension. 3. History of Sage esophagus. 4. History of liver mass. PHYSICAL EXAMINATION: Patient was seen in his room, lying comfortably in bed. Patient has jaundice. CHEST: Clear. A few crackles at the lung bases. ABDOMEN: Soft. Femoral pulses are present. PLAN: Placement of dialysis catheter. The patient has been given fresh frozen plasma. We will arrange for dialysis catheter placement. Risks and complications of bleeding, infection, thrombosis have been discussed. MMODL / IJN: [id number] /
[2018-04-22] MEDS ORDERED: LIDOCAINE 1% INJ 10MG/ML (20 ML MDV) SQ ONE (18:45)
--- NOTE | 2018-04-22 19:17 | P.PN ---
Subjective Progress Note Date: 04/22/18 Principal diagnosis: Hyperkalemia and acute kidney injury Mr. 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 Patient was having workup done for liver cirrhosis, he had EGD colonoscopy which revealed evidence of diffuse esophageal varices and CAT scan of the abdomen with the cirrhotic liver and ascites. Patient had 1.4 L of paracentesis fluid removed yesterday. Patient also had elevated AFP and MRI in March 2018 reported liver mass presumed to be hepatocellular carcinoma. The patient also had hyperkalemia and acute kidney injury at the time of admission thought to be cyclic due to hepatorenal syndrome and currently being followed by nephrology. On 04/22/18 - patient lying in bed appears to be in no acute distress. Overnight no active issues reported by the nursing staff. He states that they did give him vitamin K as his INR was elevated and he might not go for a liver biopsy today. Patient doesn't appear to be depressed but tearful and concerned about his disease. On review of systems patient denies having any chest pain, difficulty in breathing, cough. States abdominal discomfort is much better after the paracentesis. No dysuria or hematuria. No headache nausea vomiting or diarrhea. Patient's medications have been reviewed. Objective - Vital Signs Vital signs: Vital Signs Temp 96.6 F L 04/22/18 18:54 Pulse 76 04/22/18 18:54 Resp 16 04/22/18 18:54 BP 103/54 04/22/18 18:54 Pulse Ox 92 L 04/22/18 16:00 Intake & Output 04/22/18 04/22/18 04/23/18 06:59 18:59 06:59 Intake Total 600 422 Output Total 300 Balance 300 422 Weight 108.9 kg 108.9 kg Intake: Intake, IV Titration 600 Amount Albumin Human 25% 50 ml 50 In Empty Bag 1 bag @ 200 mls/hr IVPB Q8H MEGHANN Rx#: [id number] Albumin Human 25% 50 ml 50 In Empty Bag 1 bag @ 200 mls/hr IVPB Q8H MEGHANN Rx#: [id number] Dextrose 5% in Water 1, 500 000 ml @ 50 mls/hr IV . Q22H MEGHANN with Sodium Bicarb (1 Meq/ml) 100 ml Rx#:[id number] Oral 100 Blood Product 322 Ffp 24 Cpd Unit 322 [id number] Output: Urine 300 Other: Voiding Method Toilet Toilet # Voids 0 1 - Exam GEN. APPEARANCE: alert, in no apparent distress HEAD EXAM: atraumatic, normocephalic, normal inspection EYE EXAM: Positive for icterus NECK EXAM: normal inspection. Absent: tenderness, meningismus, full ROM, lymphadenopathy RESPIRATORY EXAM: Decreased breath sounds bilaterally in the lower lung bases CARDIOVASCULAR EXAM: regular rate, normal rhythm, normal heart sounds. Absent : systolic murmur, diastolic murmur, rubs, gallop, clicks GI/ABDOMINAL EXAM: Distended with moderate arthritis EXTREMITIES EXAM: Mild pitting edema NEUROLOGICAL EXAM: alert, oriented X3, no focal neurological deficits PSYCHIATRIC EXAM: Tearful and anxious - Labs CBC & Chem 7: 04/22/18 06:53 04/22/18 06:53 Labs: Abnormal Lab Results - Last 24 Hours (Table) 04/21/18 04/22/18 04/22/18 Range/Units 21:15 06:53 06:53 RBC 3.09 L (4.30-5.90) m/uL Hgb 10.7 L (13.0-17.5) gm/dL Hct 32.2 L (39.0-53.0) % MCV 104.5 H (80.0-100.0) fL RDW 16.8 H (11.5-15.5) % Plt Count 120 L (150-450) k/uL PT (9.0-12.0) sec INR (<1.2) APTT (22.0-30.0) sec Sodium 134 L (137-145) mmol/L Carbon Dioxide 20 L (22-30) mmol/L BUN 106 H* (9-20) mg/dL Creatinine 6.69 H (0.66-1.25) mg/dL POC Glucose (mg/dL) 129 H (75-99) mg/dL Total Bilirubin 16.4 H* (0.2-1.3) mg/dL AST 208 H (17-59) U/L Albumin 3.1 L (3.5-5.0) g/dL 04/22/18 04/22/18 04/22/18 Range/Units 06:53 11:09 16:49 RBC (4.30-5.90) m/uL Hgb (13.0-17.5) gm/dL Hct (39.0-53.0) % MCV (80.0-100.0) fL RDW (11.5-15.5) % Plt Count (150-450) k/uL PT 16.3 H (9.0-12.0) sec INR 1.8 H (<1.2) APTT 39.7 H (22.0-30.0) sec Sodium (137-145) mmol/L Carbon Dioxide (22-30) mmol/L BUN (9-20) mg/dL Creatinine (0.66-1.25) mg/dL POC Glucose (mg/dL) 106 H 103 H (75-99) mg/dL Total Bilirubin (0.2-1.3) mg/dL AST (17-59) U/L Albumin (3.5-5.0) g/dL Microbiology - Last 24 Hours (Table) 04/19/18 02:25 Blood Culture - Preliminary Blood No Growth after 72 hours Assessment and Plan Assessment: ASSESSMENT Acute kidney injury most likely secondary to hepatorenal syndrome Hyperkalemia resolved Ascites is secondary to cirrhosis of the liver Nonalcoholic liver cirrhosis Elevated bilirubin 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 As per nephrology the patient will be getting his permacath tomorrow as he will need dialysis. Patient getting vitamin K as his INR has been high. Liver biopsy procedure currently pending. Patient's infectious hepatitis panel has been negative for hep B and hep C. Overall prognosis is poor. Further recommendations to follow depending on the progress of the patient.
--- NOTE | 2018-04-22 19:29 | P.PN ---
Subjective Progress Note Date: 04/22/18 Principal diagnosis: Suspect HCC, coagulopathy secondary to liver disease Pt seen today in f/u, he is pending liver biopsy, he is in renal failure requiring dialysis. He is very scared, abd is distended and uncomfortable, appetite is poor, no vomiting, urine is very dark, denies grossly bloody or black stool, no bleeding. Objective - Vital Signs Vital signs: Vital Signs Temp 96.6 F L 04/22/18 18:54 Pulse 76 04/22/18 18:54 Resp 16 04/22/18 18:54 BP 103/54 04/22/18 18:54 Pulse Ox 92 L 04/22/18 16:00 Intake & Output 04/22/18 04/22/18 04/23/18 06:59 18:59 06:59 Intake Total 600 422 Output Total 300 Balance 300 422 Weight 108.9 kg 108.9 kg Intake: Intake, IV Titration 600 Amount Albumin Human 25% 50 ml 50 In Empty Bag 1 bag @ 200 mls/hr IVPB Q8H MEGHANN Rx#: [id number] Albumin Human 25% 50 ml 50 In Empty Bag 1 bag @ 200 mls/hr IVPB Q8H MEGHANN Rx#: [id number] Dextrose 5% in Water 1, 500 000 ml @ 50 mls/hr IV . Q22H MEGHANN with Sodium Bicarb (1 Meq/ml) 100 ml Rx#:[id number] Oral 100 Blood Product 322 Ffp 24 Cpd Unit 322 [id number] Output: Urine 300 Other: Voiding Method Toilet Toilet # Voids 0 1 - Constitutional General appearance: Present: cooperative, mild distress - EENT Eyes: Present: scleral icterus - Neck Neck: Absent: lymphadenopathy, normal ROM, other, rigidity, stridor, thyromegaly - Respiratory Respiratory: bilateral: diminished (bases, inspirations are shallow) - Cardiovascular Heart sounds: normal: S1, S2 - Peripheral edema leg Peripheral Edema: bilateral: 3+, Pitting - Gastrointestinal Gastrointestinal Comment(s): distant bowel sounds General gastrointestinal: Present: distended, hepatomegaly - Integumentary Integumentary: Present: jaundiced - Neurologic Neurologic: Present: CNII-XII intact - Musculoskeletal Musculoskeletal: Present: generalized weakness - Psychiatric Psychiatric: Present: A&O x's 3, intact judgment & insight - Labs CBC & Chem 7: 04/22/18 06:53 04/22/18 06:53 Labs: Abnormal Lab Results - Last 24 Hours (Table) 04/21/18 04/22/18 04/22/18 Range/Units 21:15 06:53 06:53 RBC 3.09 L (4.30-5.90) m/uL Hgb 10.7 L (13.0-17.5) gm/dL Hct 32.2 L (39.0-53.0) % MCV 104.5 H (80.0-100.0) fL RDW 16.8 H (11.5-15.5) % Plt Count 120 L (150-450) k/uL PT (9.0-12.0) sec INR (<1.2) APTT (22.0-30.0) sec Sodium 134 L (137-145) mmol/L Carbon Dioxide 20 L (22-30) mmol/L BUN 106 H* (9-20) mg/dL Creatinine 6.69 H (0.66-1.25) mg/dL POC Glucose (mg/dL) 129 H (75-99) mg/dL Total Bilirubin 16.4 H* (0.2-1.3) mg/dL AST 208 H (17-59) U/L Albumin 3.1 L (3.5-5.0) g/dL 04/22/18 04/22/18 04/22/18 Range/Units 06:53 11:09 16:49 RBC (4.30-5.90) m/uL Hgb (13.0-17.5) gm/dL Hct (39.0-53.0) % MCV (80.0-100.0) fL RDW (11.5-15.5) % Plt Count (150-450) k/uL PT 16.3 H (9.0-12.0) sec INR 1.8 H (<1.2) APTT 39.7 H (22.0-30.0) sec Sodium (137-145) mmol/L Carbon Dioxide (22-30) mmol/L BUN (9-20) mg/dL Creatinine (0.66-1.25) mg/dL POC Glucose (mg/dL) 106 H 103 H (75-99) mg/dL Total Bilirubin (0.2-1.3) mg/dL AST (17-59) U/L Albumin (3.5-5.0) g/dL Microbiology - Last 24 Hours (Table) 04/19/18 02:25 Blood Culture - Preliminary Blood No Growth after 72 hours Assessment and Plan (1) Elevated AFP Narrative/Plan: Significant elevation >100,000. Since the liver biopsy is going to be postponed as pt needs dialysis and coagulopathy reversal will check with insurance to see if treatment for HCC can be ordered without tissue diagnosis. Will communicate with GI and Medical what, if anything, can be done differently. Current Visit: Yes Status: Acute Priority: High Code(s): R77.2 - ABNORMALITY OF ALPHAFETOPROTEIN SNOMED Code(s): 865114452 (2) Coagulopathy Narrative/Plan: Secondary to liver dysfunction. Pt being given vit K and/or FFP for procedures. No asa, NSAIDs or anticoagulants at this time Current Visit: Yes Status: Acute Priority: High Code(s): D68.9 - COAGULATION DEFECT, UNSPECIFIED SNOMED Code(s): 65508290 (3) Macrocytic anemia Narrative/Plan: Anemia is mild at this time, no iron deficiency noted, B12 and folate pending. CBC monitoring Current Visit: Yes Status: Acute Priority: Medium Code(s): D53.9 - NUTRITIONAL ANEMIA, UNSPECIFIED SNOMED Code(s): 14882637 (4) Thrombocytopenia Narrative/Plan: Mild, secondary to liver dysfunction, no acute intervention for the same. Current Visit: Yes Status: Acute Priority: Medium Code(s): D69.6 - THROMBOCYTOPENIA, UNSPECIFIED SNOMED Code(s): 674158580
[2018-04-22 21:03] LABS: Glucose,Whole Blood 70 mg/dL (75-99)
--- NOTE | 2018-04-22 23:12 | PCN ---
PROCEDURE NOTE PREOPERATIVE DIAGNOSIS: Acute and chronic renal failure. PROCEDURE: Ultrasound-guided 30 cm dialysis catheter placement via right femoral approach. This patient was brought to the lab assistant. Right groin was prepped and draped in the usual sterile manner. Lidocaine 1% was infiltrated. Ultrasound-guided micropuncture into the right femoral vein was performed. Micropuncture guidewire was passed. Then a 4-Hebrew dilator was advanced on the top of the guidewire. Then we passed a stiff guidewire and then we placed a dilator and then sheath was advanced on top of the guidewire. Through the sheath we placed a 30 cm cuffed catheter under fluoroscopic guidance. Catheter tip was found in the inferior vena cava, flushed with heparin and saline, hep-locked and secured with 3-0 nylon. Dressing was applied. Patient tolerated the procedure well. BALDEMAR / AYANNAN: [id number] /
[2018-04-23] MEDS: DEXTROSE 5% IN WATER 1,000 ML with SODIUM BICARB (1 MEQ/ML) 100 ML IV SCH ×2 (03:50→22:40)
[2018-04-23 06:15] LABS: Glucose,Whole Blood 85 mg/dL (75-99)
[2018-04-23] MEDS: INSULIN ASPART 100 UNIT/ML 1 ML 10 ML VIAL SQ SCH ×4 (06:15→21:23)
[2018-04-23] MEDS: PANTOPRAZOLE 40 MG TABLET PO SCH ×2 (06:45→16:42)
[2018-04-23] MEDS: MIDODRINE 5 MG TAB PO SCH ×3 (07:02→21:19)
[2018-04-23] MEDS: BENZOCAINE/MENTHOL LOZENG 1 EACH LOZENGE MUCOUS MEM PRN ×3 (07:03→23:36)
[2018-04-23 07:38] LABS: Anisocytosis Slight; Basophils % (A) 0 %; Eosinophils # (A) 0.3 k/uL (0-0.7); Eosinophils % (A) 4 %; HCT 31.8 % (39.0-53.0); HGB 10.4 gm/dL (13.0-17.5); Hypochromasia Slight; Lymphocytes # (A) 1.1 k/uL (1.0-4.8); Lymphocytes % (A) 15 %; MCH 35.4 pg (25.0-35.0); MCHC 32.9 g/dL (31.0-37.0); MCV 107.6 fL (80.0-100.0); Macrocytosis Marked; Mean Platelet Volume 7.8; Monocytes # (A) 0.6 k/uL (0-1.0); Monocytes % (A) 9 %; Neutrophils # (A) 4.9 k/uL (1.3-7.7); Neutrophils % (A) 68 %; Platelet Count 110 k/uL (150-450); RBC 2.95 m/uL (4.30-5.90); RDW 16.4 % (11.5-15.5); WBC 7.2 k/uL (3.8-10.6)
[2018-04-23 07:50] LABS: Albumin 3.4 g/dL (3.5-5.0); Calcium 8.6 mg/dL (8.4-10.2); Total Protein 6.9 g/dL (6.3-8.2)
[2018-04-23 07:51] LABS: INR 1.9 (<1.2); Prothrombin Time 17.7 sec (9.0-12.0)
[2018-04-23] MEDS: SYMBICORT 80-4.5 MCG INHALER INHALATION SCH ×2 (07:53→20:56)
[2018-04-23 08:16] LABS: Total Bilirubin 18.6 mg/dL (0.2-1.3)
--- NOTE | 2018-04-23 09:31 | IR ---
EXAMINATION TYPE: IR cvc insert non tunneled DATE OF EXAM: 04/22/2018 COMPARISON: NONE HISTORY: Peripheral vascular occlusive disease. Fluoroscopy was provided to the referring clinician. See dictated report from vascular surgery.
--- NOTE | 2018-04-23 09:56 | P.PN ---
Subjective Progress Note Date: 04/23/18 Principal diagnosis: Jaundice renal failure and hepatorenal syndrome liver masses 72-year-old male with presumed HCC AFP greater than 100,000 with liver masses per MRI presents with worsening renal failure and jaundice. Status post paracentesis Sunday 1.5 L removed. Patient received vitamin K over the weekend for coagulopathy. Liver biopsy potponed until dialysis is completed worsening renal failure. Dialysis catheter inserted last night. Present INR 1.9. Total bilirubin increased to 18.6. Creatinine increased to 7.4. Objective - Vital Signs Vital signs: Vital Signs Temp 97.5 F L 04/23/18 04:00 Pulse 84 04/23/18 04:00 Resp 18 04/23/18 04:00 BP 124/64 04/23/18 04:00 Pulse Ox 90 L 04/23/18 04:00 Intake & Output 04/22/18 04/23/18 04/23/18 18:59 06:59 18:59 Intake Total 422 Output Total 100 50 Balance 422 -100 -50 Weight 108.9 kg 111.7 kg Intake: Oral 100 Blood Product 322 Ffp 24 Cpd Unit 322 [id number] Output: Urine 100 50 Other: Voiding Method Toilet Toilet # Voids 1 - Exam General appearance: The patient is alert, oriented, in no acute distress. Jaundice. HET: Head is normocephalic and atraumatic. Pupils are equal and reactive. Sclerae icterus. Oropharynx is clear without lesions. Neck: Supple without lymphadenopathy. Trachea midline. Heart: S1 S2. Regular rate and rhythm. Lungs: No crackles or wheezes are heard. Abdomen: Soft, nontender, mildly bloated with bowel sounds. No peritoneal signs. No palpable organomegaly or masses. Extremities:Right groin catheter without bleeding hematoma or swelling. Normal turgor. No cyanosis, rash, ulceration, clubbing, or edema. Radial and pedal pulses are 2/4 bilaterally. Neurological: No focal deficits. Strength and sensation are grossly intact. - Labs CBC & Chem 7: 04/23/18 06:40 04/23/18 06:40 Labs: Abnormal Lab Results - Last 24 Hours (Table) 04/22/18 04/22/18 04/22/18 Range/Units 11:09 16:49 21:00 RBC (4.30-5.90) m/uL Hgb (13.0-17.5) gm/dL Hct (39.0-53.0) % MCV (80.0-100.0) fL MCH (25.0-35.0) pg RDW (11.5-15.5) % Plt Count (150-450) k/uL PT (9.0-12.0) sec INR (<1.2) Sodium (137-145) mmol/L Chloride (98-107) mmol/L Carbon Dioxide (22-30) mmol/L BUN (9-20) mg/dL Creatinine (0.66-1.25) mg/dL POC Glucose (mg/dL) 106 H 103 H 70 L (75-99) mg/dL Total Bilirubin (0.2-1.3) mg/dL AST (17-59) U/L Albumin (3.5-5.0) g/dL 04/23/18 04/23/18 04/23/18 Range/Units 06:40 06:40 06:40 RBC 2.95 L (4.30-5.90) m/uL Hgb 10.4 L (13.0-17.5) gm/dL Hct 31.8 L (39.0-53.0) % MCV 107.6 H (80.0-100.0) fL MCH 35.4 H (25.0-35.0) pg RDW 16.4 H (11.5-15.5) % Plt Count 110 L (150-450) k/uL PT 17.7 H (9.0-12.0) sec INR 1.9 H (<1.2) Sodium 131 L (137-145) mmol/L Chloride 95 L (98-107) mmol/L Carbon Dioxide 16 L (22-30) mmol/L BUN 116 H* (9-20) mg/dL Creatinine 7.48 H* (0.66-1.25) mg/dL POC Glucose (mg/dL) (75-99) mg/dL Total Bilirubin 18.6 H* (0.2-1.3) mg/dL AST 162 H (17-59) U/L Albumin 3.4 L (3.5-5.0) g/dL Microbiology - Last 24 Hours (Table) 04/19/18 02:25 Blood Culture - Preliminary Blood No Growth after 96 hours Assessment and Plan (1) Jaundice Narrative/Plan: 72-year-old gentleman with presumed hepatocellular carcinoma with AFP greater than 100,000 liver lesions per NV presents with worsening renal function acute kidney injury possible hepatorenal syndrome acute hepatic failure worsening jaundice and ascites. Status post-therapeutic diagnostic paracentesis a week ago with negative cytology. Jaundice is secondary to intrahepatic malignancy possible component of decompensated nonalcoholic liver cirrhosis. Current Visit: Yes Status: Acute Code(s): R17 - UNSPECIFIED JAUNDICE SNOMED Code(s): 96731458 (2) Acute renal failure Current Visit: Yes Status: Acute Code(s): N17.9 - ACUTE KIDNEY FAILURE, UNSPECIFIED SNOMED Code(s): 12782508 (3) Liver cirrhosis Current Visit: Yes Status: Acute Code(s): K74.60 - UNSPECIFIED CIRRHOSIS OF LIVER SNOMED Code(s): 28241988 (4) Abnormal MRI, liver Current Visit: No Status: Acute Code(s): R93.2 - ABNORMAL FINDINGS ON DX IMAGING OF LIVER AND BILIARY TRACT SNOMED Code(s): 687831237 (5) Elevated AFP Current Visit: Yes Status: Acute Priority: High Code(s): R77.2 - ABNORMALITY OF ALPHAFETOPROTEIN SNOMED Code(s): 794858521 (6) Coagulopathy Current Visit: Yes Status: Acute Priority: High Code(s): D68.9 - COAGULATION DEFECT, UNSPECIFIED SNOMED Code(s): 75206123 Plan: 1. Jaundice is worsening. Dialysis will attempt liver biopsy tomorrow. Will require FFP prior to biopsy. Renal low-sodium diet. Daily CMP/INR. Will follow closely with you. Assessment and plan a care discussed with Dr. Black
[2018-04-23] MEDS: SODIUM BICARBONATE TAB 650 MG TAB PO SCH ×2 (10:25→21:24)
[2018-04-23] MEDS: CYANOCOBALAMIN 500 MCG TAB PO SCH (10:25)
[2018-04-23] MEDS: MECLIZINE 25 MG TAB PO SCH ×2 (10:25→21:24)
--- NOTE | 2018-04-23 10:54 | P.PN ---
Subjective Patient is seen in follow-up for acute kidney injury. Renal function continues to worsen with creatinine up to 7.48 today. Patient is oliguric. Patient is scheduled to receive first treatment of hemodialysis today. Denies chest pain or shortness of breath. Liver biopsies pending. There is concern for hepatocellular carcinoma. Vital signs are stable. General: The patient appeared well nourished and normally developed. HEENT: Head exam is unremarkable. Neck is without jugular venous distension. LUNGS: Lungs are clear to auscultation and percussion. Breath sounds decreased. HEART: Rate and Rhythm are regular. First and second heart sounds normal. No murmurs, rubs or gallops. ABDOMEN: Distention noted. EXTREMITITES: 2+ edema. Objective - Vital Signs Vital signs: Vital Signs Temp 97.5 F L 04/23/18 04:00 Pulse 84 04/23/18 04:00 Resp 18 04/23/18 04:00 BP 124/64 04/23/18 04:00 Pulse Ox 90 L 04/23/18 04:00 Intake & Output 04/22/18 04/23/18 04/23/18 18:59 06:59 18:59 Intake Total 422 Output Total 100 50 Balance 422 -100 -50 Weight 108.9 kg 111.7 kg Intake: Oral 100 Blood Product 322 Ffp 24 Cpd Unit 322 [id number] Output: Urine 100 50 Other: Voiding Method Toilet Toilet # Voids 1 - Labs CBC & Chem 7: 04/23/18 06:40 04/23/18 06:40 Labs: Abnormal Lab Results - Last 24 Hours (Table) 04/22/18 04/22/18 04/22/18 Range/Units 11:09 16:49 21:00 RBC (4.30-5.90) m/uL Hgb (13.0-17.5) gm/dL Hct (39.0-53.0) % MCV (80.0-100.0) fL MCH (25.0-35.0) pg RDW (11.5-15.5) % Plt Count (150-450) k/uL PT (9.0-12.0) sec INR (<1.2) Sodium (137-145) mmol/L Chloride (98-107) mmol/L Carbon Dioxide (22-30) mmol/L BUN (9-20) mg/dL Creatinine (0.66-1.25) mg/dL POC Glucose (mg/dL) 106 H 103 H 70 L (75-99) mg/dL Total Bilirubin (0.2-1.3) mg/dL AST (17-59) U/L Albumin (3.5-5.0) g/dL 04/23/18 04/23/18 04/23/18 Range/Units 06:40 06:40 06:40 RBC 2.95 L (4.30-5.90) m/uL Hgb 10.4 L (13.0-17.5) gm/dL Hct 31.8 L (39.0-53.0) % MCV 107.6 H (80.0-100.0) fL MCH 35.4 H (25.0-35.0) pg RDW 16.4 H (11.5-15.5) % Plt Count 110 L (150-450) k/uL PT 17.7 H (9.0-12.0) sec INR 1.9 H (<1.2) Sodium 131 L (137-145) mmol/L Chloride 95 L (98-107) mmol/L Carbon Dioxide 16 L (22-30) mmol/L BUN 116 H* (9-20) mg/dL Creatinine 7.48 H* (0.66-1.25) mg/dL POC Glucose (mg/dL) (75-99) mg/dL Total Bilirubin 18.6 H* (0.2-1.3) mg/dL AST 162 H (17-59) U/L Albumin 3.4 L (3.5-5.0) g/dL Microbiology - Last 24 Hours (Table) 04/19/18 02:25 Blood Culture - Preliminary Blood No Growth after 96 hours Assessment and Plan Plan: Assessment: 1. Acute kidney injury secondary to ATN secondary to hepatorenal syndrome. Creatinine up to 7.48 today. 2. Metabolic acidosis secondary to acute kidney injury. 3. Hypervolemic hyponatremia. 4. Liver mass with elevated alpha-fetoprotein. Liver biopsy to confirm hepatocellular carcinoma pending. Oncology and GI following. 5. Severe hyperbilirubinemia. Plan: Maintain IV bicarb for now. Continue with oral bicarb as well. Maintain albumin, Sandostatin and midodrine. First treatment of hemodialysis today. Will try for 1 L ultrafiltration. Second treatment tomorrow. Check urine sodium. Check phosphorus level.
[2018-04-23] MEDS: ALBUMIN HUMAN 25% 50 ML in EMPTY BAG 1 BAG IVPB SCH ×2 (11:17→11:18)
[2018-04-23] MEDS: OCTREOTIDE 100 MCG/ML INJ SQ SCH ×3 (11:18→22:40)
[2018-04-23] MEDS: ALPRAZolam 0.25 MG TAB PO PRN ×2 (11:19→21:33)
[2018-04-23 11:42] LABS: Glucose,Whole Blood 89 mg/dL (75-99)
[2018-04-23 17:04] LABS: Glucose,Whole Blood 105 mg/dL (75-99)
[2018-04-23] MEDS ORDERED: LIDOCAINE URO-JET JELLY 2% 5 ML KIT URETHRAL STA (17:37)
[2018-04-23 17:39] LABS: Hepatitis B Surface AB- Quant 3.5 mIU/mL
[2018-04-23 21:05] LABS: Glucose,Whole Blood 93 mg/dL (75-99)
--- NOTE | 2018-04-23 21:09 | P.GSCN ---
History of Present Illness Consult date: 04/23/18 Reason for Consult: Urinary retention Requesting physician: Donna Munoz History of present illness: The patient is a 72-year-old white male who has been seen by Dr. Arita in the past for a renal abnormality. He is now admitted with renal failure, ascites, jaundice, and possible hepatocellular carcinoma. He underwent hemodialysis earlier today. He reports some difficulty voiding. Bladder scan has suggested he is in urinary retention, and attempts by the nursing staff to place a Alaniz catheter were unsuccessful. I'm consulted for this reason. A computed tomography scan showed a left renal cyst. Review of Systems - Constitutional Reports weakness - Gastrointestinal Reports jaundice Past Medical History Past Medical History: Diabetes Mellitus, GERD/Reflux, GI Bleed, Hypertension, Pneumonia Additional Past Medical History / Comment(s): Renal cysts, hepatic cirrhosis, diverticulosis, hiatal hernia(per past egd summary -segment of barretts esophagus),anemia-required blood transfusions History of Any Multi-Drug Resistant Organisms: None Reported Past Surgical History: No Surgical Hx Reported Additional Past Surgical History / Comment(s): kosta cataracts, egd/ colonoscopy, wisdom teeth extracted Past Anesthesia/Blood Transfusion Reactions: No Reported Reaction Additional Past Anesthesia/Blood Transfusion Reaction / Comm: past blood transfusions-no reaction Past Psychological History: No Psychological Hx Reported Smoking Status: Never smoker Past Alcohol Use History: None Reported Past Drug Use History: None Reported - Past Family History Mother Family Medical History: No Reported History Additional Family Medical History / Comment(s): Pt adopted, but knows mother. Healthy at 95y/o Father Family Medical History: Liver Disease, Myocardial Infarction ([place]) Additional Family Medical History / Comment(s): , heavy drinker Medications and Allergies Home Medications Medication Instructions Recorded Confirmed Type Cyanocobalamin (Vitamin B-12) 1,000 mcg PO DAILY 11/23/16 04/18/18 History [Vitamin B-12] Ferrous Sulfate [Iron (65 MG 325 mg PO DAILY 11/23/16 04/18/18 History Elemental)] Promethazine HCl/Codeine 5 - 10 ml PO Q6HR PRN 01/04/17 04/18/18 History [Prometh-Codein 6.25-10 mg/5 ml] Fluticasone/Vilanterol [Breo 1 puff INHALATION RT-DAILY 04/10/18 04/18/18 History Ellipta 100-25 Mcg Inhaler] Meclizine [Antivert] 25 mg PO BID 04/10/18 04/18/18 History Omeprazole [PriLOSEC] 20 mg PO DAILY 04/10/18 04/18/18 History Sodium Bicarbonate Tab 650 mg PO BID #30 tab 04/13/18 04/18/18 Rx Amoxicillin 1,000 mg PO Q12H 04/18/18 04/18/18 History amLODIPine [Norvasc] 5 mg PO BID 04/18/18 04/18/18 History Allergies Allergy/AdvReac Type Severity Reaction Status Date / Time No Known Allergies Allergy Verified 04/18/18 13:02 Surgical - Exam Vital Signs Temp Pulse Resp BP Pulse Ox 97.8 F 97 18 109/59 97 04/18/18 11:50 04/18/18 11:50 04/18/18 11:50 04/18/18 11:50 04/18/18 11:50 - General well developed, well nourished, other (There is evidence of jaundice.) - Respiratory normal respiratory effort - Abdomen Abdomen: soft, distended - Genitourinary other (The penis is uncircumcised. His not possible to retract the foreskin due to mild penile edema. The scrotum and testes are normal.) - Rectum Rectum: normal sphincter tone, no masses, other (The prostate is mildly enlarged , and smooth in consistency.) - Psychiatric oriented to time, oriented to person, oriented to place, speech is normal, memory intact Results - Labs 04/23/18 06:40 04/23/18 06:40 Abnormal Lab Results - Last 24 Hours (Table) 04/22/18 04/23/18 04/23/18 Range/Units 21:00 06:40 06:40 RBC 2.95 L (4.30-5.90) m/uL Hgb 10.4 L (13.0-17.5) gm/dL Hct 31.8 L (39.0-53.0) % MCV 107.6 H (80.0-100.0) fL MCH 35.4 H (25.0-35.0) pg RDW 16.4 H (11.5-15.5) % Plt Count 110 L (150-450) k/uL PT (9.0-12.0) sec INR (<1.2) Sodium (137-145) mmol/L Chloride (98-107) mmol/L Carbon Dioxide (22-30) mmol/L BUN (9-20) mg/dL Creatinine (0.66-1.25) mg/dL POC Glucose (mg/dL) 70 L (75-99) mg/dL Total Bilirubin (0.2-1.3) mg/dL AST (17-59) U/L Albumin (3.5-5.0) g/dL Vitamin B12 >4000.0 H (211-911) pg/mL 04/23/18 04/23/18 04/23/18 Range/Units 06:40 06:40 17:02 RBC (4.30-5.90) m/uL Hgb (13.0-17.5) gm/dL Hct (39.0-53.0) % MCV (80.0-100.0) fL MCH (25.0-35.0) pg RDW (11.5-15.5) % Plt Count (150-450) k/uL PT 17.7 H (9.0-12.0) sec INR 1.9 H (<1.2) Sodium 131 L (137-145) mmol/L Chloride 95 L (98-107) mmol/L Carbon Dioxide 16 L (22-30) mmol/L BUN 116 H* (9-20) mg/dL Creatinine 7.48 H* (0.66-1.25) mg/dL POC Glucose (mg/dL) 105 H (75-99) mg/dL Total Bilirubin 18.6 H* (0.2-1.3) mg/dL AST 162 H (17-59) U/L Albumin 3.4 L (3.5-5.0) g/dL Vitamin B12 (211-911) pg/mL Microbiology - Last 24 Hours (Table) 04/19/18 02:25 Blood Culture - Preliminary Blood No Growth after 96 hours Diabetes panel 04/23/18 Range/Units 06:40 Sodium 131 L (137-145) mmol/L Potassium 5.0 (3.5-5.1) mmol/L Chloride 95 L (98-107) mmol/L Carbon Dioxide 16 L (22-30) mmol/L BUN 116 H* (9-20) mg/dL Creatinine 7.48 H* (0.66-1.25) mg/dL Glucose 82 (74-99) mg/dL Calcium 8.6 (8.4-10.2) mg/dL AST 162 H (17-59) U/L ALT 45 (21-72) U/L Alkaline Phosphatase 80 (38-126) U/L Total Protein 6.9 (6.3-8.2) g/dL Albumin 3.4 L (3.5-5.0) g/dL Calcium panel 04/23/18 Range/Units 06:40 Calcium 8.6 (8.4-10.2) mg/dL Albumin 3.4 L (3.5-5.0) g/dL Pituitary panel 04/23/18 Range/Units 06:40 Sodium 131 L (137-145) mmol/L Potassium 5.0 (3.5-5.1) mmol/L Chloride 95 L (98-107) mmol/L Carbon Dioxide 16 L (22-30) mmol/L BUN 116 H* (9-20) mg/dL Creatinine 7.48 H* (0.66-1.25) mg/dL Glucose 82 (74-99) mg/dL Calcium 8.6 (8.4-10.2) mg/dL Adrenal panel 04/23/18 Range/Units 06:40 Sodium 131 L (137-145) mmol/L Potassium 5.0 (3.5-5.1) mmol/L Chloride 95 L (98-107) mmol/L Carbon Dioxide 16 L (22-30) mmol/L BUN 116 H* (9-20) mg/dL Creatinine 7.48 H* (0.66-1.25) mg/dL Glucose 82 (74-99) mg/dL Calcium 8.6 (8.4-10.2) mg/dL Total Bilirubin 18.6 H* (0.2-1.3) mg/dL AST 162 H (17-59) U/L ALT 45 (21-72) U/L Alkaline Phosphatase 80 (38-126) U/L Total Protein 6.9 (6.3-8.2) g/dL Albumin 3.4 L (3.5-5.0) g/dL Assessment and Plan (1) Urinary retention Current Visit: Yes Status: Acute Code(s): R33.9 - RETENTION OF URINE, UNSPECIFIED SNOMED Code(s): 000964053 (2) Phimosis Current Visit: Yes Status: Acute Code(s): N47.1 - PHIMOSIS SNOMED Code(s) : 142187062 Plan: The penis was prepped and draped sterilely. It was possible to pass the Alaniz catheter through the fibrotic ring and cannulate the urethral meatus. The catheter was then advanced into the bladder, with return of approximately 250 mL of dark urine. The patient reports significant burning as a result of the Alaniz catheter. If this persists, I would suggest that the catheter be removed. It should be noted that the patient has ascites, and that this will cause erroneous bladder scan readings suggestive of urinary retention. Please notify us if we can be of any further assistance.
[2018-04-24 06:13] LABS: Glucose,Whole Blood 95 mg/dL (75-99)
[2018-04-24] MEDS: INSULIN ASPART 100 UNIT/ML 1 ML 10 ML VIAL SQ SCH ×4 (06:24→20:19)
[2018-04-24] MEDS: PANTOPRAZOLE 40 MG TABLET PO SCH ×2 (06:26→16:37)
[2018-04-24] MEDS: MIDODRINE 5 MG TAB PO SCH ×3 (06:26→16:37)
[2018-04-24] MEDS: SYMBICORT 80-4.5 MCG INHALER INHALATION SCH ×2 (08:12→20:22)
[2018-04-24 10:11] LABS: Anisocytosis Slight; Basophils % (A) 0 %; Eosinophils # (A) 0.3 k/uL (0-0.7); Eosinophils % (A) 3 %; HCT 35.3 % (39.0-53.0); HGB 11.7 gm/dL (13.0-17.5); Lymphocytes # (A) 1.2 k/uL (1.0-4.8); Lymphocytes % (A) 13 %; MCH 36.1 pg (25.0-35.0); MCHC 33.2 g/dL (31.0-37.0); MCV 108.7 fL (80.0-100.0); Macrocytosis Marked; Mean Platelet Volume 8.3; Monocytes # (A) 0.7 k/uL (0-1.0); Monocytes % (A) 8 %; Neutrophils # (A) 6.6 k/uL (1.3-7.7); Neutrophils % (A) 73 %; Platelet Count 107 k/uL (150-450); RBC 3.25 m/uL (4.30-5.90); WBC 8.9 k/uL (3.8-10.6)
[2018-04-24 10:16] LABS: Albumin 3.4 g/dL (3.5-5.0); Calcium 8.5 mg/dL (8.4-10.2); Phosphorus 7.3 mg/dL (2.5-4.5); Total Protein 6.9 g/dL (6.3-8.2)
[2018-04-24] MEDS: CYANOCOBALAMIN 500 MCG TAB PO SCH (10:33)
[2018-04-24] MEDS: SODIUM BICARBONATE TAB 650 MG TAB PO SCH ×2 (10:34→20:21)
[2018-04-24] MEDS: ALPRAZolam 0.25 MG TAB PO PRN (10:34)
[2018-04-24] MEDS: MECLIZINE 25 MG TAB PO SCH ×2 (10:34→20:21)
[2018-04-24 10:35] LABS: Total Bilirubin 20.8 mg/dL (0.2-1.3)
--- NOTE | 2018-04-24 11:37 | P.PN ---
Subjective Patient is seen in follow-up for acute kidney injury. Patient is oliguric. Creatinine peaked at 7.48 and he was subsequently started on hemodialysis on April 23. He tolerated the first treatment of hemodialysis was yesterday. Currently see what undergoing the second treatment. Patient is quite lethargic. Oral intake is poor. Case was discussed with GI. He will be transferred to a tertiary care center for further workup for hepatocellular carcinoma. He had a Laaniz catheter placed by urology yesterday and 250 mL of urine was obtained initially. Vital signs are stable. General: The patient appeared well nourished and normally developed. HEENT: Head exam is unremarkable. Neck is without jugular venous distension. LUNGS: Lungs are clear to auscultation and percussion. Breath sounds decreased. HEART: Rate and Rhythm are regular. First and second heart sounds normal. No murmurs, rubs or gallops. ABDOMEN: Distention noted. EXTREMITITES: 2+ edema. Objective - Vital Signs Vital signs: Vital Signs Temp 97.2 F L 04/24/18 08:00 Pulse 83 04/24/18 08:00 Resp 18 04/24/18 08:00 BP 120/52 04/24/18 08:00 Pulse Ox 90 L 04/24/18 08:00 Intake & Output 04/23/18 04/24/18 04/24/18 18:59 06:59 18:59 Intake Total 168 250 Output Total 50 680 Balance 118 -430 Intake: IV 250 Dextrose 5% in Water 1, 250 000 ml @ 50 mls/hr IV . Q22H MEGHANN with Sodium Bicarb (1 Meq/ml) 100 ml Rx#:[id number] Oral 168 Output: Urine 50 680 Uretheral (Alaniz) 240 Other: Voiding Method Toilet Indwelling Catheter Indwelling Catheter # Bowel Movements 1 - Labs CBC & Chem 7: 04/24/18 06:58 04/24/18 06:58 Labs: Abnormal Lab Results - Last 24 Hours (Table) 04/23/18 04/23/18 04/23/18 Range/Units 06:40 06:40 17:02 RBC (4.30-5.90) m/uL Hgb (13.0-17.5) gm/dL Hct (39.0-53.0) % MCV (80.0-100.0) fL MCH (25.0-35.0) pg RDW (11.5-15.5) % Plt Count (150-450) k/uL Sodium (137-145) mmol/L Chloride (98-107) mmol/L Carbon Dioxide (22-30) mmol/L BUN (9-20) mg/dL Creatinine (0.66-1.25) mg/dL POC Glucose (mg/dL) 105 H (75-99) mg/dL Phosphorus (2.5-4.5) mg/dL Total Bilirubin (0.2-1.3) mg/dL AST (17-59) U/L Albumin (3.5-5.0) g/dL Vitamin B12 >4000.0 H (211-911) pg/mL RBC Folate 1,070 H (280 - 791) ng/mL 04/24/18 04/24/18 Range/Units 06:58 06:58 RBC 3.25 L (4.30-5.90) m/uL Hgb 11.7 L (13.0-17.5) gm/dL Hct 35.3 L (39.0-53.0) % MCV 108.7 H (80.0-100.0) fL MCH 36.1 H (25.0-35.0) pg RDW 17.0 H (11.5-15.5) % Plt Count 107 L (150-450) k/uL Sodium 133 L (137-145) mmol/L Chloride 94 L (98-107) mmol/L Carbon Dioxide 20 L (22-30) mmol/L BUN 92 H (9-20) mg/dL Creatinine 6.95 H (0.66-1.25) mg/dL POC Glucose (mg/dL) (75-99) mg/dL Phosphorus 7.3 H (2.5-4.5) mg/dL Total Bilirubin 20.8 H* (0.2-1.3) mg/dL AST 166 H (17-59) U/L Albumin 3.4 L (3.5-5.0) g/dL Vitamin B12 (211-911) pg/mL RBC Folate (280 - 791) ng/mL Microbiology - Last 24 Hours (Table) 04/19/18 02:25 Blood Culture - Preliminary Blood No Growth after 120 hours Assessment and Plan Plan: Assessment: 1. Acute kidney injury secondary to ATN secondary to hepatorenal syndrome. Creatinine peaked at 7.48 this admission. Now hemodialysis dependent. Currently undergoing second treatment of hemodialysis. 2. Metabolic acidosis secondary to acute kidney injury. Better. 3. Hypervolemic hyponatremia. Better with ultrafiltration. 4. Liver mass with elevated alpha-fetoprotein. Liver biopsy to confirm hepatocellular carcinoma pending. Oncology and GI following. 5. Severe hyperbilirubinemia. 6. Hyperphosphatemia secondary to acute kidney injury. Plan: Discontinue IV bicarbonate. Continue with oral bicarb. Maintain albumin, Sandostatin and midodrine. Third treatment of hemodialysis tomorrow. Urine sodium pending. Add Renvela with meals. Plan for transfer to tertiary care center today.
--- NOTE | 2018-04-24 11:42 | P.PN ---
Subjective Progress Note Date: 04/24/18 Principal diagnosis: Jaundice renal failure and hepatorenal syndrome liver masses 72-year-old male with presumed HCC AFP greater than 100,000 with liver masses per MRI presents with worsening renal failure/hepatorenal and worsening jaundice. Status post paracentesis Sunday 1.5 L removed. Patient received vitamin K over the weekend for coagulopathy. Liver biopsy was planned however postponed the other day secondary to worsening renal failure need for dialysis. Dialysis catheter has been inserted he is receiving his second cycle of dialysis today. BUN 92. Creatinine 6.9. Total bilirubin 20.8. AST 166. ALT 32. AP 93. INR yesterday was 1. 9 repeat pending today. Urinary retention yesterday Alaniz catheter inserted last night with 250 mL return. Objective - Vital Signs Vital signs: Vital Signs Temp 97.2 F L 04/24/18 08:00 Pulse 83 04/24/18 08:00 Resp 18 04/24/18 08:00 BP 120/52 04/24/18 08:00 Pulse Ox 90 L 04/24/18 08:00 Intake & Output 04/23/18 04/24/18 04/24/18 18:59 06:59 18:59 Intake Total 168 250 Output Total 50 680 Balance 118 -430 Intake: IV 250 Dextrose 5% in Water 1, 250 000 ml @ 50 mls/hr IV . Q22H MEGHANN with Sodium Bicarb (1 Meq/ml) 100 ml Rx#:[id number] Oral 168 Output: Urine 50 680 Uretheral (Alaniz) 240 Other: Voiding Method Toilet Indwelling Catheter Indwelling Catheter # Bowel Movements 1 - Exam General appearance: The patient is alert, oriented, in no acute distress. Jaundice. HET: Head is normocephalic and atraumatic. Pupils are equal and reactive. Sclerae icterus. Oropharynx is clear without lesions. Neck: Supple without lymphadenopathy. Trachea midline. Heart: S1 S2. Regular rate and rhythm. Lungs: No crackles or wheezes are heard. Abdomen: Soft, nontender, mildly bloated with bowel sounds. No peritoneal signs. No palpable organomegaly or masses. Extremities:Right groin catheter without bleeding hematoma or swelling. Normal turgor. No cyanosis, rash, ulceration, clubbing, or edema. Radial and pedal pulses are 2/4 bilaterally. Fully with maxwell urine. Neurological: No focal deficits. Strength and sensation are grossly intact. - Labs CBC & Chem 7: 04/24/18 06:58 04/24/18 06:58 Labs: Abnormal Lab Results - Last 24 Hours (Table) 04/23/18 04/23/18 04/23/18 Range/Units 06:40 06:40 17:02 RBC (4.30-5.90) m/uL Hgb (13.0-17.5) gm/dL Hct (39.0-53.0) % MCV (80.0-100.0) fL MCH (25.0-35.0) pg RDW (11.5-15.5) % Plt Count (150-450) k/uL Sodium (137-145) mmol/L Chloride (98-107) mmol/L Carbon Dioxide (22-30) mmol/L BUN (9-20) mg/dL Creatinine (0.66-1.25) mg/dL POC Glucose (mg/dL) 105 H (75-99) mg/dL Phosphorus (2.5-4.5) mg/dL Total Bilirubin (0.2-1.3) mg/dL AST (17-59) U/L Albumin (3.5-5.0) g/dL Vitamin B12 >4000.0 H (211-911) pg/mL RBC Folate 1,070 H (280 - 791) ng/mL 04/24/18 04/24/18 Range/Units 06:58 06:58 RBC 3.25 L (4.30-5.90) m/uL Hgb 11.7 L (13.0-17.5) gm/dL Hct 35.3 L (39.0-53.0) % MCV 108.7 H (80.0-100.0) fL MCH 36.1 H (25.0-35.0) pg RDW 17.0 H (11.5-15.5) % Plt Count 107 L (150-450) k/uL Sodium 133 L (137-145) mmol/L Chloride 94 L (98-107) mmol/L Carbon Dioxide 20 L (22-30) mmol/L BUN 92 H (9-20) mg/dL Creatinine 6.95 H (0.66-1.25) mg/dL POC Glucose (mg/dL) (75-99) mg/dL Phosphorus 7.3 H (2.5-4.5) mg/dL Total Bilirubin 20.8 H* (0.2-1.3) mg/dL AST 166 H (17-59) U/L Albumin 3.4 L (3.5-5.0) g/dL Vitamin B12 (211-911) pg/mL RBC Folate (280 - 791) ng/mL Microbiology - Last 24 Hours (Table) 04/19/18 02:25 Blood Culture - Preliminary Blood No Growth after 120 hours Assessment and Plan (1) Jaundice Narrative/Plan: 72-year-old gentleman with presumed hepatocellular carcinoma with AFP greater than 100,000 liver lesions per AL presents with worsening renal function hepatorenal syndrome as well as acute hepatic failure worsening jaundice with ascites. Status post-therapeutic diagnostic paracentesis two week ago with negative cytology. Jaundice is secondary to intrahepatic malignancy and suspected component of decompensated nonalcoholic liver cirrhosis. Current Visit: Yes Status: Acute Code(s): R17 - UNSPECIFIED JAUNDICE SNOMED Code(s): 38029942 (2) Acute renal failure Current Visit: Yes Status: Acute Code(s): N17.9 - ACUTE KIDNEY FAILURE, UNSPECIFIED SNOMED Code(s): 46607319 (3) Liver cirrhosis Current Visit: Yes Status: Acute Code(s): K74.60 - UNSPECIFIED CIRRHOSIS OF LIVER SNOMED Code(s): 26974907 (4) Abnormal MRI, liver Current Visit: No Status: Acute Code(s): R93.2 - ABNORMAL FINDINGS ON DX IMAGING OF LIVER AND BILIARY TRACT SNOMED Code(s): 145137188 (5) Elevated AFP Current Visit: Yes Status: Acute Priority: High Code(s): R77.2 - ABNORMALITY OF ALPHAFETOPROTEIN SNOMED Code(s): 657718022 (6) Coagulopathy Current Visit: Yes Status: Acute Priority: High Code(s): D68.9 - COAGULATION DEFECT, UNSPECIFIED SNOMED Code(s): 37473248 Plan: 1. Jaundice is worsening. Patient is presently undergoing dialysis. Case was discussed with nephrology and oncology. From a GI standpoint recommend transfer to tertiary center secondary to worsening jaundice decompensated liver cirrhosis with presumed HCC and need for liver biopsy, treatment evaluation. Assessment and plan of care discussed with Dr. Black
[2018-04-24] MEDS: SEVELAMER 800 MG TAB PO SCH ×2 (11:57→18:33)
[2018-04-24 12:12] LABS: Glucose,Whole Blood 84 mg/dL (75-99)
[2018-04-24] MEDS: OCTREOTIDE 100 MCG/ML INJ SQ SCH ×2 (12:12→16:37)
--- NOTE | 2018-04-24 14:59 | P.PN ---
Subjective Progress Note Date: 04/23/18 Principal diagnosis: Hyperkalemia and ALEXEY requiring HD Mr. 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 Patient was having workup done for liver cirrhosis, he had EGD colonoscopy which revealed evidence of diffuse esophageal varices and CAT scan of the abdomen with the cirrhotic liver and ascites. Patient had 1.4 L of paracentesis fluid removed yesterday. Patient also had elevated AFP and MRI in March 2018 reported liver mass presumed to be hepatocellular carcinoma. The patient also had hyperkalemia and acute kidney injury at the time of admission thought to be cyclic due to hepatorenal syndrome and currently being followed by nephrology. On 04/22/18 - patient lying in bed appears to be in no acute distress. Overnight no active issues reported by the nursing staff. He states that they did give him vitamin K as his INR was elevated and he might not go for a liver biopsy today. Patient doesn't appear to be depressed but tearful and concerned about his disease. On review of systems patient denies having any chest pain, difficulty in breathing, cough. States abdominal discomfort is much better after the paracentesis. No dysuria or hematuria. No headache nausea vomiting or diarrhea. 04/23/2018 Patient is lying in the bed he appears very anxious about his medical condition. Patient is undergoing hemodialysis. Currently denied any worsening shortness of breath or chest pain. Patient is icteric and also has coagulopathy due to liver cirrhosis and underlying hepatic lesions suspicious for hepatocellular carcinoma. Liver biopsy could not be obtained at this time due to coagulopathy. Creatinine level is greater than 7. No fever no chills. Denied any abdominal discomfort but distended. Patient is having urinary retention greater than 500 mL in the bladder scan. Will be placed on Alaniz catheter. No diarrhea. No headache or dizziness or lightheadedness. All other review of systems negative except the above. Patient's medications have been reviewed. Objective - Vital Signs Vital signs: Vital Signs Temp 97.2 F L 04/23/18 12:00 Pulse 83 04/23/18 12:00 Resp 18 04/23/18 12:00 BP 130/57 04/23/18 12:00 Pulse Ox 90 L 04/23/18 12:00 Intake & Output 04/22/18 04/23/18 04/23/18 18:59 06:59 18:59 Intake Total 422 50 Output Total 100 50 Balance 422 -100 0 Weight 108.9 kg 111.7 kg Intake: Oral 100 50 Blood Product 322 Ffp 24 Cpd Unit 322 [id number] Output: Urine 100 50 Other: Voiding Method Toilet Toilet Toilet # Voids 1 - Exam GEN. APPEARANCE: alert, in no apparent distress HEAD EXAM: atraumatic, normocephalic, normal inspection EYE EXAM: Positive for icterus NECK EXAM: normal inspection. Absent: tenderness, meningismus, full ROM, lymphadenopathy RESPIRATORY EXAM: Decreased breath sounds bilaterally in the lower lung bases, crackles+ CARDIOVASCULAR EXAM: regular rate, normal rhythm, normal heart sounds. Absent : systolic murmur, diastolic murmur, rubs, gallop, clicks GI/ABDOMINAL EXAM: Distended with moderate tenderness EXTREMITIES EXAM: Mild pitting edema NEUROLOGICAL EXAM: alert, oriented X3, no focal neurological deficits PSYCHIATRIC EXAM: Tearful and anxious - Labs CBC & Chem 7: 04/24/18 06:58 04/24/18 06:58 Labs: Abnormal Lab Results - Last 24 Hours (Table) 04/22/18 04/22/18 04/23/18 Range/Units 16:49 21:00 06:40 RBC 2.95 L (4.30-5.90) m/uL Hgb 10.4 L (13.0-17.5) gm/dL Hct 31.8 L (39.0-53.0) % MCV 107.6 H (80.0-100.0) fL MCH 35.4 H (25.0-35.0) pg RDW 16.4 H (11.5-15.5) % Plt Count 110 L (150-450) k/uL PT (9.0-12.0) sec INR (<1.2) Sodium (137-145) mmol/L Chloride (98-107) mmol/L Carbon Dioxide (22-30) mmol/L BUN (9-20) mg/dL Creatinine (0.66-1.25) mg/dL POC Glucose (mg/dL) 103 H 70 L (75-99) mg/dL Total Bilirubin (0.2-1.3) mg/dL AST (17-59) U/L Albumin (3.5-5.0) g/dL 04/23/18 04/23/18 Range/Units 06:40 06:40 RBC (4.30-5.90) m/uL Hgb (13.0-17.5) gm/dL Hct (39.0-53.0) % MCV (80.0-100.0) fL MCH (25.0-35.0) pg RDW (11.5-15.5) % Plt Count (150-450) k/uL PT 17.7 H (9.0-12.0) sec INR 1.9 H (<1.2) Sodium 131 L (137-145) mmol/L Chloride 95 L (98-107) mmol/L Carbon Dioxide 16 L (22-30) mmol/L BUN 116 H* (9-20) mg/dL Creatinine 7.48 H* (0.66-1.25) mg/dL POC Glucose (mg/dL) (75-99) mg/dL Total Bilirubin 18.6 H* (0.2-1.3) mg/dL AST 162 H (17-59) U/L Albumin 3.4 L (3.5-5.0) g/dL Microbiology - Last 24 Hours (Table) 04/19/18 02:25 Blood Culture - Preliminary Blood No Growth after 96 hours Assessment and Plan Assessment: Acute kidney injury most likely secondary to hepatorenal syndrome. requiring HD day 1 Hyperkalemia resolved Possible hepatocellular carcinoma with AFP greater than 100,000 and liver lesions Ascites is secondary to cirrhosis of the liver Nonalcoholic liver cirrhosis Elevated bilirubin 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 Patient is being started on hemodialysis today. Patient getting vitamin K as his INR has been high. Liver biopsy procedure currently pending due to coagulopathy. Patient's infectious hepatitis panel has been negative for hep B and hep C. Overall prognosis is poor. Nephrology, GI and oncology is following. Further recommendations to follow depending on the progress of the patient. Time with Patient: Greater than 30
[2018-04-24 17:08] LABS: Glucose,Whole Blood 71 mg/dL (75-99)
[2018-04-24 18:41] LABS: Glucose,Whole Blood 82 mg/dL (75-99)
[2018-04-24 20:26] VITALS: TEMP 97
[2018-04-24 20:30] LABS: Glucose,Whole Blood 93 mg/dL (75-99)
[2018-04-24 23:27] VITALS: BP 122/55; PULSE 75; RESP 18
== END 2018-04-25 00:19 | disposition short-term general hospital (02) | DRG 441 ==
LOC: EC 11:38 → 6SEL 15:50 → 3SCARD 04-21 10:17 → 6SEL 04-21 10:17 → 3SCARD 04-22 16:01
PROVIDERS: ADMIT Hospitalist; ATTEND Hospitalist
PROC: 0W9G3ZZ Drainage of Peritoneal Cavity, Percutaneous Approach (ICD-10-PCS; 2018-04-19)
PROC: 30233K1 Transfusion of Nonautologous Frozen Plasma into Peripheral Vein, Percutaneous Approach (ICD-10-PCS; 2018-04-22)
PROC: 06H033Z Insertion of Infusion Device into Inferior Vena Cava, Percutaneous Approach (ICD-10-PCS; 2018-04-22 18:25)
PROC: 5A1D70Z Performance of Urinary Filtration, Intermittent, Less than 6 Hours Per Day (ICD-10-PCS; principal; 2018-04-23)
DX: K76.7 Hepatorenal syndrome (principal); N17.0 Acute kidney failure with tubular necrosis; K72.00 Acute and subacute hepatic failure without coma; C22.0 Liver cell carcinoma; D68.4 Acquired coagulation factor deficiency; E87.1 Hypo-osmolality and hyponatremia; E87.2 Acidosis; K76.6 Portal hypertension; R18.8 Other ascites; D69.6 Thrombocytopenia, unspecified; E87.5 Hyperkalemia; E83.39 Other disorders of phosphorus metabolism; N28.1 Cyst of kidney, acquired; D53.9 Nutritional anemia, unspecified; D63.8 Anemia in other chronic diseases classified elsewhere; K74.60 Unspecified cirrhosis of liver; E11.9 Type 2 diabetes mellitus without complications; I10 Essential (primary) hypertension; K21.9 Gastro-esophageal reflux disease without esophagitis; K22.70 Barrett's esophagus without dysplasia; N47.1 Phimosis; K44.9 Diaphragmatic hernia without obstruction or gangrene; K57.90 Diverticulosis of intestine, part unspecified, without perforation or abscess without bleeding; R77.2 Abnormality of alphafetoprotein; R33.9 Retention of urine, unspecified; Z87.01 Personal history of pneumonia (recurrent); Z79.899 Other long term (current) drug therapy; Z98.42 Cataract extraction status, left eye; Z98.41 Cataract extraction status, right eye; Z96.1 Presence of intraocular lens; Z82.49 Family history of ischemic heart disease and other diseases of the circulatory system; Z83.79 Family history of other diseases of the digestive system
CPT/HCPCS: 36415; 36558; 49083; 71046; 71250; 74176; 76705; 76937; 77001; 80053; 80306; 81001; 82607; 82747; 83036; 83735; 84100; 85025; 85610; 85730; 86704; 86706; 86850; 86900; 86901; 87040; 87086; 87340; 90935; 94640; 94760; 99284